=== PATIENT | female | born 1995 | race Caucasian/White ===

== ENCOUNTER → 2019-04-24 | Outpatient (CLI) | payer OTHER ==
--- NOTE | 2019-04-26 22:20 | CT ---
EXAMINATION TYPE: CT abdomen wo/w con DATE OF EXAM: 04/24/2019 COMPARISON: NONE HISTORY: 23-year-old female abdominal pain, Abdominal mass TECHNIQUE: Contiguous axial scanning of the abdomen abdomen before and after administration of 100 ml Isovue 300 IV contrast. Delayed images through the kidneys and coronal/sagittal reconstructions per formed. CT DLP: 2159.7 mGycm Automated exposure control for dose reduction was used. FINDINGS: LUNG BASES: No significant abnormality is appreciated. LIVER/GB: Liver enlarged measuring 20.0 cm with low attenuation. No focal lesions seen. Portal venous system is patent. No biliary ductal dilatation. Gallbladder is collapsed. PANCREAS: There is a relatively large 6.9 x 5.0 cm cystic lesion situated posterior and inferior to t he pancreatic body/tail bowing the splenic vein anteriorly. The delayed images suggest that there may be a couple thin central septation. No abnormal soft tissue nodularity or enhancement. SPLEEN: No significant abnormality is seen. LYMPH NODES: Scattered nonenlarged and borderline enlarged mesenteric lymph nodes are scattered throu ghout measuring up to 9 mm, for example, coronal image 49 and 53. ADRENALS: No significant abnormality is seen. KIDNEYS: No significant abnormality is seen. BOWEL: No dilated small bowel, free fluid, or free air. Normal appendix. Moderate stool within the r ight side of the colon. No pericolonic inflammatory changes. Normal appendix. BONES: No osseous destructive process. The pelvis is not imaged. IMPRESSION: 1. NONSPECIFIC 6.9 X 5.0 CM CYST SITUATED ALONG THE POSTEROINFERIOR ASPECT OF THE PANCREATIC BODY/TERRY L. CORRELATE FOR APPROPRIATE HISTORY OF PRIOR PANCREATITIS FOR POSSIBLE PSEUDOCYST. SPT CONSIDERED LE SS LIKELY GIVEN THE LACK OF ENHANCING SOLID COMPONENT. THE PATIENT IS SOMEWHAT YOUNG FOR A MUCINOUS P ANCREATIC NEOPLASM BUT THIS REMAINS IN THE DIFFERENTIAL IF THERE IS NO HISTORY OF PRIOR PANCREATITIS. 2. HEPATOMEGALY (20.0 CM) WITH HEPATIC STEATOSIS. 3. NUMEROUS SCATTERED NONENLARGED AND BORDERLINE ENLARGED MESENTERIC LYMPH NODES MEASURING UP TO 9 MM . PROBABLY REACTIVE/POST INFLAMMATORY. ENSURE STABILITY/RESOLUTION WITH FOLLOW-UP CT IN 6 MONTHS.
== END | disposition home or self-care (01) ==
LOC: RADCTMAIN 16:42
PROVIDERS: ATTEND Family Medicine
DX: K76.0 Fatty (change of) liver, not elsewhere classified (principal); R16.0 Hepatomegaly, not elsewhere classified; R59.9 Enlarged lymph nodes, unspecified
CPT/HCPCS: 74170; Q9967

== ENCOUNTER 2019-05-24 11:13 | Emergency (ER) | payer OTHER ==
[2019-05-24 11:20] VITALS: RESP 18; TEMP 98
--- NOTE | 2019-05-24 11:31 | ED ---
General Adult HPI - General Chief complaint: Upper Respiratory Infection Stated complaint: chest pain Time Seen by Provider: 05/24/19 11:20 Source: patient Mode of arrival: ambulatory Limitations: no limitations - History of Present Illness Initial comments: Patient is a 23-year-old female with history of asthma presents emergency Department with a chief complaint of cough shortness of breath. States a nonproductive cough for several months. Patient reports gradual increase in severity. States she was prescribed nebulized albuterol but did not have medication for a long time. Does report occasional chest pain especially with full aspiration. States her chest feels tight because she cannot take a full breath. Patient does use a vape daily. Does report a runny nose and occasional sore throat. Denies taking medication to alleviate the symptoms. - Related Data Home Medications Medication Instructions Recorded Confirmed ALPRAZolam [Xanax] 2 mg PO HS 12/04/15 12/04/15 diphenhydrAMINE HCL [Benadryl] 25 - 150 mg PO HS PRN 12/04/15 12/04/15 Previous Rx's Medication Instructions Recorded ALPRAZolam [Xanax] 0.5 mg PO AC-BID #30 tab 12/07/15 Fluticasone Nasal Lena [Flonase 1 spray EA NOSTRIL BID spr 12/07/15 Nasal Lena] Gabapentin [Neurontin] 600 mg PO TID #120 cap 12/07/15 Jcqzxcui-Dujeqlozci-Hyhn Oint 1 applic TOPICAL BID applic 12/07/15 [Triple Antibiotic Ointment] Nicotine 14Mg/24Hr Patch [Habitrol] 1 patch TRANSDERM DAILY #30 patch 12/07/15 Propranolol [Inderal] 30 mg PO Q12H #90 tab 12/07/15 chlorproMAZINE [Thorazine] 300 mg PO HS #120 tab 12/07/15 diphenhydrAMINE [Benadryl] 50 mg PO HS PRN #30 cap 12/07/15 tiZANidine [Zanaflex] 2 mg PO TID PRN #90 tab 12/07/15 Albuterol Inhaler [Ventolin Hfa 1 - 2 puff INHALATION RT-Q6H PRN 05/24/19 Inhaler] #1 inhaler Azithromycin [Zithromax Z-pack] 0 mg PO DIRECTED #1 pack 05/24/19 predniSONE 50 mg PO DAILY #5 tab 05/24/19 Allergies Allergy/AdvReac Type Severity Reaction Status Date / Time No Known Allergies Allergy Verified 12/04/15 16:51 Review of Systems ROS Statement: Those systems with pertinent positive or pertinent negative responses have been documented in the HPI. ROS Other: All systems not noted in ROS Statement are negative. Past Medical History Past Medical History: Seizure Disorder Additional Past Medical History / Comment(s): agoraphobia, borderline, seizure disorder: last seizure was a "1 month ago." Polycystic ovary syndrome, chronic back spasms History of Any Multi-Drug Resistant Organisms: None Reported Past Surgical History: Ear Surgery Additional Past Surgical History / Comment(s): Bilateral ear tube insertion as a young child. Past Anesthesia/Blood Transfusion Reactions: No Reported Reaction Past Psychological History: Depression, PTSD, Schizoaffective Disorder Smoking Status: Current every day smoker Past Alcohol Use History: Occasional Past Drug Use History: Marijuana, Prescription Drug Abuse - Past Family History Father Family Medical History: Hypertension Additional Family Medical History / Comment(s): Father is alive at age 50 with Testosterone deficiency Mother Additional Family Medical History / Comment(s): Mother is alive at age 48 with history of MPD, bipolar, depression. Brother(s) Additional Family Medical History / Comment(s): She has 4 brothers with no major medical problems. She does not have any sisters. She does not have any children. General Exam Limitations: no limitations General appearance: alert, in no apparent distress, obese (morbily obese) Head exam: Present: atraumatic, normocephalic, normal inspection Eye exam: Present: normal appearance Pupils: Present: normal accommodation ENT exam: Present: normal exam, normal oropharynx, mucous membranes moist, TM's normal bilaterally, normal external ear exam Neck exam: Present: normal inspection, full ROM. Absent: lymphadenopathy Respiratory exam: Present: normal lung sounds bilaterally. Absent: respiratory distress, wheezes, decreased breath sounds Cardiovascular Exam: Present: regular rate, normal rhythm, normal heart sounds Extremities exam: Present: normal inspection, full ROM Back exam: Present: normal inspection, full ROM Neurological exam: Present: alert, oriented X3 Psychiatric exam: Present: normal affect, normal mood Skin exam: Present: warm, dry, intact, normal color Course Vital Signs 05/24/19 05/24/19 05/24/19 11:17 12:23 12:32 Temperature 98.0 F Pulse Rate 113 H 100 104 H Respiratory 18 Rate Blood Pressure 138/81 O2 Sat by Pulse 99 Oximetry 05/24/19 12:46 Temperature Pulse Rate 71 Respiratory 18 Rate Blood Pressure 130/74 O2 Sat by Pulse 99 Oximetry Medical Decision Making - Medical Decision Making Patient is 23-year-old female with history of asthma presenting to the emergency department with a chief complaint of cough. Symptoms ongoing for the past 3 or 4 months. Patient is a smoker. Patient given a breathing treatment in the ED. On reevaluation patient reports improvement of symptoms. I counseled the patient for smoking cessation for greater than 3 minutesPatient also started on steroids. Patient will be discharged with an albuterol inhaler, 5 day course of prednisone and azithromycin. X-rays unremarkable. Patient is not febrile. Return parameters thoroughly discussed with patient was understanding and agreeable. Case discussed with physician. Disposition Clinical Impression: Asthma exacerbation, mild Disposition: HOME SELF-CARE Condition: Stable Instructions (If sedation given, give patient instructions): Asthma (DC) Additional Instructions: Take prescribed medication as directed. Follow-up with primary care. Return to emergency department if symptoms worsen. Stop smoking. Prescriptions: predniSONE 50 mg PO DAILY #5 tab Albuterol Inhaler [Ventolin Hfa Inhaler] 1 - 2 puff INHALATION RT-Q6H PRN #1 inhaler PRN Reason: Cough Azithromycin [Zithromax Z-pack] 0 mg PO DIRECTED #1 pack Is patient prescribed a controlled substance at d/c from ED?: No Referrals: Jose Antonio Pinon Jr, DO [Primary Care Provider] - 1-2 days Time of Disposition: 12:37
[2019-05-24] MEDS ORDERED: IPRATROPIUM-ALBUTEROL 3 ML NEB INHALATION STA (11:43)
[2019-05-24] MEDS ORDERED: predniSONE 20 MG TAB PO STA (11:44)
[2019-05-24] MEDS ORDERED: FAMOTIDINE 20 MG TAB PO STA (11:44)
--- NOTE | 2019-05-24 12:34 | XR ---
EXAMINATION TYPE: XR chest 2V DATE OF EXAM ORDERED: 05/24/2019 HISTORY: cough. REFERENCE: None. FINDINGS: The lungs are clear. Pleural spaces are clear. Heart size is normal. IMPRESSION: NORMAL CHEST.
[2019-05-24 12:48] VITALS: BP 130/74; PULSE 71
== END 2019-05-24 12:46 | disposition home or self-care (01) ==
LOC: EC 11:13
DX: J45.901 Unspecified asthma with (acute) exacerbation (principal); Z71.6 Tobacco abuse counseling; F40.00 Agoraphobia, unspecified; F17.290 Nicotine dependence, other tobacco product, uncomplicated; Z79.899 Other long term (current) drug therapy
CPT/HCPCS: 94640; 71046; 99285; 99406; J7512

== ENCOUNTER 2019-06-21 19:52 | Emergency (ER) | payer OTHER ==
[2019-06-21 19:59] VITALS: RESP 18; TEMP 97.4
--- NOTE | 2019-06-21 20:54 | CT ---
EXAMINATION TYPE: CT brain wo con DATE OF EXAM: 06/21/2019 COMPARISON: None HISTORY: Right side facial pain and MANUEL CT DLP: 1052.4 mGycm Automated exposure control for dose reduction was used. Ventricles and sulci appear normal. There is no mass effect nor midline shift. There is no sign of in tracranial hemorrhage. The calvarium is intact. IMPRESSION: Normal unenhanced head CT scan.
[2019-06-21 21:10] VITALS: BP 130/98; PULSE 125
--- NOTE | 2019-06-21 21:13 | ED ---
General Adult HPI - General Source: patient Mode of arrival: ambulatory Limitations: no limitations <Shweta Jin - Last Filed: 06/22/19 02:05> <Steph Aviles - Last Filed: 06/22/19 23:24> - General Chief complaint: ENT Stated complaint: Facial pain Time Seen by Provider: 06/21/19 20:09 - History of Present Illness Initial comments: 23-year-old female patient presents to the emergency department today for evaluation of right sided facial pain. Patient states she's been getting these pains intermittently over the last couple of weeks. Patient states the pain is in her right faith behind her right thigh, across her maxillary sinus and into her jaw. Patient states that the pain comes at different times to different locations. States that it can last anywhere from a few seconds up to a couple of hours. States that the intensity and duration is getting worse. Patient states she does have very poor dentition. Denies any facial swelling. Denies fever or chills. Denies any dizziness, weakness, blurred vision, double vision. Patient denies history of similar symptoms. She does take several psychiatric medications as well as oxcarbazepine for seizures. Patient denies any recent rash, cough, shortness of breath, chest pain, abdominal pain, nausea, vomiting, diarrhea, constipation, back pain, numbness, tingling, dizziness, weakness, hematuria, dysuria, urinary urgency, urinary frequency, or any other complaints. (Shweta Jin) - Related Data Home Medications Medication Instructions Recorded Confirmed Albuterol Inhaler [Ventolin Hfa 2 puff INHALATION RT-QID PRN 06/21/19 06/21/19 Inhaler] Benztropine Mesylate [Cogentin] 1 mg PO HS 06/21/19 06/21/19 Metoprolol Succinate (ER) [Toprol 100 mg PO DAILY 06/21/19 06/21/19 Xl] Mirtazapine 30 mg PO HS 06/21/19 06/21/19 OLANZapine 15 mg PO HS 06/21/19 06/21/19 OXcarbazepine [Trileptal] 300 mg PO BID 06/21/19 06/21/19 Pregabalin 200 mg PO TID 06/21/19 06/21/19 clonazePAM [KlonoPIN] 1 mg PO BID PRN 06/21/19 06/21/19 hydrOXYzine PAMOATE [Vistaril] 50 mg PO Q8H PRN 06/21/19 06/21/19 Previous Rx's Medication Instructions Recorded OXcarbazepine 600 mg PO BID #28 tablet 06/21/19 Penicillin V Potassium [Pen Vee K] 500 mg PO Q6H #40 tablet 06/21/19 Allergies Allergy/AdvReac Type Severity Reaction Status Date / Time No Known Allergies Allergy Verified 06/21/19 21:03 Review of Systems ROS Other: All systems not noted in ROS Statement are negative. <Shweta Jin - Last Filed: 06/22/19 02:05> ROS Other: All systems not noted in ROS Statement are negative. <Steph Aviles - Last Filed: 06/22/19 23:24> ROS Statement: Those systems with pertinent positive or pertinent negative responses have been documented in the HPI. Past Medical History Past Medical History: Seizure Disorder Additional Past Medical History / Comment(s): agoraphobia, borderline, seizure disorder: last seizure was a "1 month ago." Polycystic ovary syndrome, chronic back spasms , autism does not use link. History of Any Multi-Drug Resistant Organisms: None Reported Past Surgical History: Ear Surgery Additional Past Surgical History / Comment(s): Bilateral ear tube insertion as a young child. Past Anesthesia/Blood Transfusion Reactions: No Reported Reaction Past Psychological History: Depression, PTSD, Schizoaffective Disorder Smoking Status: Current every day smoker Past Alcohol Use History: Occasional Past Drug Use History: Marijuana, Prescription Drug Abuse - Past Family History Father Family Medical History: Hypertension Additional Family Medical History / Comment(s): Father is alive at age 50 with Testosterone deficiency Mother Additional Family Medical History / Comment(s): Mother is alive at age 48 with history of MPD, bipolar, depression. Brother(s) Additional Family Medical History / Comment(s): She has 4 brothers with no major medical problems. She does not have any sisters. She does not have any children. <Shweta Jin - Last Filed: 06/22/19 02:05> General Exam Limitations: no limitations General appearance: alert, in no apparent distress, other (This is a well- developed, well-nourished adult female patient in no acute distress. Vital signs upon presentation are temperature 97.4F, pulse 138, respirations 18, blood pressure 141/94, pulse ox 97% on room air.) Eye exam: Present: normal appearance, PERRL, EOMI. Absent: scleral icterus, conjunctival injection, periorbital swelling ENT exam: Present: normal oropharynx, mucous membranes moist, TM's normal bilaterally, other (Poor dentition, multiple dental caries noted. No gingival erythema or hyperplasia. No facial swelling.) Neck exam: Present: normal inspection, full ROM. Absent: tenderness, men ingismus, lymphadenopathy Respiratory exam: Present: normal lung sounds bilaterally Cardiovascular Exam: Present: normal rhythm, tachycardia, normal heart sounds. Absent: systolic murmur, diastolic murmur, rubs, gallop, clicks Neurological exam: Present: alert, oriented X3, CN II-XII intact Psychiatric exam: Present: normal affect, normal mood Skin exam: Present: warm, dry, intact, normal color. Absent: rash <Shweta Jin - Last Filed: 06/22/19 02:05> Course Vital Signs 06/21/19 06/21/19 06/21/19 19:56 21:00 21:18 Temperature 97.4 F L 97.4 F L Pulse Rate 138 H 125 H 125 H Respiratory 18 18 18 Rate Blood Pressure 141/94 130/98 130/98 O2 Sat by Pulse 97 97 97 Oximetry Medical Decision Making - Radiology Data Radiology results: report reviewed, image reviewed <Shweta Jin - Last Filed: 06/22/19 02:05> <Steph Aviles - Last Filed: 06/22/19 23:24> - Medical Decision Making 23-year-old female patient presents to the emergency department today for evaluation of intermittent right facial pain the last couple of weeks. Physical examination does reveal poor dentition with multiple dental caries but is otherwise unremarkable. She is neurologically intact with no focal deficits. There is no temporal artery induration. CT of the brain was negative. Symptoms are consistent with trigeminal neuralgia or possibly a dental infection. We will increase her oxcarbazepine 600 mg twice daily and started on pen VK. She is instructed to follow-up with her primary care physician as well as her neurologist for further evaluation as soon as possible. She is instructed to inform them immediately of her oxcarbazepine dosage change. Return parameters are discussed in detail. She verbalizes understanding and agrees with this plan. (Shweta Jin) I was available for consultation in the emergency department. The history and physical exam were done by the midlevel provider. I was consulted for this patients care. I reviewed the case with the midlevel provider and based on their presentation of the patient, I agree with the assessment, medical decision making and plan of care as documented. Chart was dictated using [employer] dictation software. Attempts were made to correct any dictation errors however some typographical errors may persist. Patient was seen during a national state of emergency due to the Covid-19 pandemic. (Steph Aviles) - Radiology Data CT of the brain without contrast was obtained. Report was reviewed in its entirety. Impression by Dr. Payne shows normal unenhanced head CT scan. (Shweta Jin) Disposition Is patient prescribed a controlled substance at d/c from ED?: No Time of Disposition: 21:13 <Shweta Jin - Last Filed: 06/22/19 02:05> <Steph Aviles - Last Filed: 06/22/19 23:24> Clinical Impression: Facial pain, Trigeminal neuralgia Disposition: HOME SELF-CARE Condition: Good Instructions (If sedation given, give patient instructions): Trigeminal Neuralgia (ED) Additional Instructions: Increase dosage of your oxcarbamazepine to 600mg twice daily. Complete antibiotic prescription in full. Follow up with dentistry and your neurologist. Follow-up with your primary care physician for recheck in 1-2 days. Inform your neurologist that we increased the dosage of your medication due to suspected trigeminal neuralgia. Return to the emergency department for any new, worsening, or concerning symptoms. Prescriptions: OXcarbazepine 600 mg PO BID #28 tablet Penicillin V Potassium [Pen Vee K] 500 mg PO Q6H #40 tablet Referrals: Jose Antonio Pinon Jr, [Primary Care Provider] - 1-2 days
== END 2019-06-21 21:19 | disposition home or self-care (01) ==
LOC: EC 19:52
DX: G50.0 Trigeminal neuralgia (principal); G40.909 Epilepsy, unspecified, not intractable, without status epilepticus; F32.9 Major depressive disorder, single episode, unspecified; F25.9 Schizoaffective disorder, unspecified; F17.200 Nicotine dependence, unspecified, uncomplicated; Z79.899 Other long term (current) drug therapy
CPT/HCPCS: 70450; 99284

== ENCOUNTER 2019-06-25 17:38 | Emergency (ER) | payer OTHER ==
[2019-06-25] MEDS ORDERED: ONDANSETRON 4 MG/2 ML VIAL IVP STA (18:37)
[2019-06-25] MEDS ORDERED: SODIUM CHLORIDE 0.9% 1,000 ML IV STA (18:37)
[2019-06-25] MEDS ORDERED: HYDROmorphone 0.5 MG/0.5 ML SYRINGE IVP STA (18:37)
[2019-06-25 19:11] LABS: Basophils % (A) 0 %; Eosinophils # (A) 0.2 k/uL (0-0.7); Eosinophils % (A) 2 %; HGB 13.1 gm/dL (11.4-16.0); Lymphocytes # (A) 3.2 k/uL (1.0-4.8); Lymphocytes % (A) 23 %; MCH 28.9 pg (25.0-35.0); MCHC 33.7 g/dL (31.0-37.0); MCV 85.7 fL (80.0-100.0); Mean Platelet Volume 9.6; Monocytes # (A) 0.4 k/uL (0-1.0); Monocytes % (A) 3 %; Neutrophils # (A) 10.1 k/uL (1.3-7.7); Neutrophils % (A) 72 %; Platelet Count 257 k/uL (150-450); RBC 4.55 m/uL (3.80-5.40); RDW 13.9 % (11.5-15.5); WBC 14.1 k/uL (3.8-10.6)
[2019-06-25 19:17] LABS: Appearance,Urine Clear (Clear); Bilirubin,Urine Negative (Negative); Blood,Urine Negative (Negative); Color,Urine Light Yellow; Glucose,Urine (UA) Negative (Negative); Ketones,Urine Negative (Negative); Leukocyte Esterase,Urine Negative (Negative); Nitrite,Urine Negative (Negative); Protein,Urine Negative (Negative); Urobilinogen,Urine <2.0 mg/dL (<2.0)
[2019-06-25 19:24] LABS: ALT 21 U/L (4-34); AST 26 U/L (14-36); African American GFR (CKD) >90 (>60 ml/min/1.73 sqM); Albumin 3.7 g/dL (3.5-5.0); Alkaline Phosphatase 107 U/L (38-126); Amylase 60 U/L (30-110); Anion Gap 7 mmol/L; Blood Urea Nitrogen 10 mg/dL (7-17); Calcium 9.2 mg/dL (8.4-10.2); Carbon Dioxide 25 mmol/L (22-30); Chloride 104 mmol/L (98-107); Glucose 90 mg/dL (74-99); Non-African American GFR(CKD) >90 (>60 ml/min/1.73 sqM); Potassium 4.2 mmol/L (3.5-5.1); Sodium 136 mmol/L (137-145); Total Bilirubin 0.2 mg/dL (0.2-1.3); Total Protein 6.5 g/dL (6.3-8.2)
[2019-06-25] MEDS ORDERED: HYDROmorphone 1 MG/ML 1 ML SYRINGE IVP STA (19:45)
--- NOTE | 2019-06-25 19:45 | ED ---
General Adult HPI - General Chief complaint: Recheck/Abnormal Lab/Rx Stated complaint: Internal cyst Time Seen by Provider: 06/25/19 17:52 Source: patient Mode of arrival: ambulatory Limitations: no limitations - History of Present Illness Initial comments: 23-year-old female patient presents to the emergency department today for evaluation of left upper quadrant abdominal pain. 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 States that she is taking [place] 10/325 and doesn't seem to be helping her pain today. She states that she is having some nausea but denies any vomiting. States she is eating and drinking without difficulty. Denies any constipation or diarrhea. She denies any hematuria, dysuria, urinary frequency, urinary urgency. Patient states that she will be having a biopsy on this cyst, the surgical oncologist is suspicious for pancreatic cancer. Patient is currently receiving antibiotics for dental infection. Patient denies any recent rash, cough, shortness of breath, chest pain, back pain, numbness, tingling, dizziness, weakness, hematuria, dysuria, urinary urgency, urinary frequency, headache, visual changes, or any other complaints. - Related Data Home Medications Medication Instructions Recorded Confirmed Albuterol Inhaler [Ventolin Hfa 2 puff INHALATION RT-QID PRN 06/21/19 06/21/19 Inhaler] Benztropine Mesylate [Cogentin] 1 mg PO HS 06/21/19 06/21/19 Metoprolol Succinate (ER) [Toprol 100 mg PO DAILY 06/21/19 06/21/19 Xl] Mirtazapine 30 mg PO HS 06/21/19 06/21/19 OLANZapine 15 mg PO HS 06/21/19 06/21/19 OXcarbazepine [Trileptal] 300 mg PO BID 06/21/19 06/21/19 Pregabalin 200 mg PO TID 06/21/19 06/21/19 clonazePAM [KlonoPIN] 1 mg PO BID PRN 06/21/19 06/21/19 hydrOXYzine PAMOATE [Vistaril] 50 mg PO Q8H PRN 06/21/19 06/21/19 Previous Rx's Medication Instructions Recorded OXcarbazepine 600 mg PO BID #28 tablet 06/21/19 Penicillin V Potassium [Pen Vee K] 500 mg PO Q6H #40 tablet 06/21/19 Allergies Allergy/AdvReac Type Severity Reaction Status Date / Time No Known Allergies Allergy Verified 06/25/19 17:45 Review of Systems ROS Statement: Those systems with pertinent positive or pertinent negative responses have been documented in the HPI. ROS Other: All systems not noted in ROS Statement are negative. Past Medical History Past Medical History: Seizure Disorder Additional Past Medical History / Comment(s): agoraphobia, borderline, seizure disorder: last seizure was a "1 month ago." Polycystic ovary syndrome, chronic back spasms , autism does not use link. Sinus tachycardia History of Any Multi-Drug Resistant Organisms: None Reported Past Surgical History: Ear Surgery Additional Past Surgical History / Comment(s): Bilateral ear tube insertion as a young child. Past Anesthesia/Blood Transfusion Reactions: No Reported Reaction Past Psychological History: Depression, PTSD, Schizoaffective Disorder Smoking Status: Current every day smoker Past Alcohol Use History: Occasional Past Drug Use History: Marijuana, Prescription Drug Abuse - Past Family History Father Family Medical History: Hypertension Additional Family Medical History / Comment(s): Father is alive at age 50 with Testosterone deficiency Mother Additional Family Medical History / Comment(s): Mother is alive at age 48 with history of MPD, bipolar, depression. Brother(s) Additional Family Medical History / Comment(s): She has 4 brothers with no major medical problems. She does not have any sisters. She does not have any children. General Exam Limitations: no limitations General appearance: alert, in no apparent distress, other (This is a well- developed, well-nourished adult female patient in no acute distress. Vital signs upon presentation are temperature 99.0F, pulse 136, respirations 18, blood pressure 135/86, pulse ox 98% on room air) Eye exam: Present: normal appearance, PERRL, EOMI. Absent: scleral icterus, conjunctival injection, periorbital swelling Respiratory exam: Present: normal lung sounds bilaterally. Absent: respiratory distress, wheezes, rales, rhonchi, stridor Cardiovascular Exam: Present: regular rate, normal rhythm, normal heart sounds. Absent: systolic murmur, diastolic murmur, rubs, gallop, clicks GI/Abdominal exam: Present: soft, normal bowel sounds. Absent: distended, tenderness, guarding, rebound, rigid Neurological exam: Present: alert, oriented X3, CN II-XII intact Psychiatric exam: Present: normal affect, normal mood Skin exam: Present: warm, dry, intact, normal color. Absent: rash Course Vital Signs 06/25/19 06/25/19 17:41 20:10 Temperature 99.0 F 97.9 F Pulse Rate 136 H 79 Respiratory 18 16 Rate Blood Pressure 135/86 126/78 O2 Sat by Pulse 98 98 Oximetry EKG Findings - EKG Comments: EKG Findings:: EKG obtained at 1923 shows ventricular rate of 113, CO interval 162, QRS duration 82, QT 332, QTc 455. This is consistent with sinus tac hycardia. No ST elevation or depression. Medical Decision Making - Medical Decision Making 23-year-old female patient presents to the emergency department today for evaluation of left upper quadrant abdominal pain. Physical examination did reveal some tenderness over the left upper quadrant. She is currently taking penicillin for dental infection. Labs reviewed and did reveal elevated white blood cell count. She is afebrile. She does have tachycardia but this is common for her, EKG showed sinus tach. Urinalysis is negative. Upon reev aluation shows report mild improvement of symptoms but is still having pain. We will give a dose of pain medication and she'll be discharged to follow-up with her doctor and surgeon. Return parameters were discussed in detail. She verbalizes understanding and agrees with this plan. - Lab Data Result diagrams: 06/25/19 18:36 06/25/19 18:36 Lab Results 06/25/19 06/25/19 06/25/19 Range/Units 18:36 18:36 18:36 WBC 14.1 H (3.8-10.6) k/uL RBC 4.55 (3.80-5.40) m/uL Hgb 13.1 (11.4-16.0) gm/dL Hct 39.0 (34.0-46.0) % MCV 85.7 (80.0-100.0) fL MCH 28.9 (25.0-35.0) pg MCHC 33.7 (31.0-37.0) g/dL RDW 13.9 (11.5-15.5) % Plt Count 257 (150-450) k/uL Neutrophils % 72 % Lymphocytes % 23 % Monocytes % 3 % Eosinophils % 2 % Basophils % 0 % Neutrophils # 10.1 H (1.3-7.7) k/uL Lymphocytes # 3.2 (1.0-4.8) k/uL Monocytes # 0.4 (0-1.0) k/uL Eosinophils # 0.2 (0-0.7) k/uL Basophils # 0.0 (0-0.2) k/uL Sodium 136 L (137-145) mmol/L Potassium 4.2 (3.5-5.1) mmol/L Chloride 104 (98-107) mmol/L Carbon Dioxide 25 (22-30) mmol/L Anion Gap 7 mmol/L BUN 10 (7-17) mg/dL Creatinine 0.75 (0.52-1.04) mg/dL Est GFR (CKD-EPI)AfAm >90 (>60 ml/min/1.73 sqM) Est GFR (CKD-EPI)NonAf >90 (>60 ml/min/1.73 sqM) Glucose 90 (74-99) mg/dL Calcium 9.2 (8.4-10.2) mg/dL Total Bilirubin 0.2 (0.2-1.3) mg/dL AST 26 (14-36) U/L ALT 21 (4-34) U/L Alkaline Phosphatase 107 (38-126) U/L Total Protein 6.5 (6.3-8.2) g/dL Albumin 3.7 (3.5-5.0) g/dL Amylase 60 (30-110) U/L Lipase 36 (23-300) U/L Urine Color Light Yellow Urine Appearance Clear (Clear) Urine pH 7.0 (5.0-8.0) Ur Specific [place] 1.010 (1.001-1.035) Urine Protein Negative (Negative) Urine Glucose (UA) Negative (Negative) Urine Ketones Negative (Negative) Urine Blood Negative (Negative) Urine Nitrite Negative (Negative) Urine Bilirubin Negative (Negative) Urine Urobilinogen <2.0 (<2.0) mg/dL Ur Leukocyte Esterase Negative (Negative) Disposition Clinical Impression: Abdominal pain Disposition: HOME SELF-CARE Condition: Good Instructions (If sedation given, give patient instructions): Abdominal Pain (ED) Additional Instructions: Continue home medications. Follow-up with your primary care physician for further evaluation and to request stronger pain medication. Follow-up with your surgeon for further evaluation as soon as possible. Return to the emergency department for any new, worsening, or concerning symptoms. Is patient prescribed a controlled substance at d/c from ED?: No Referrals: Jose Antonio Pinon Jr, DO [Primary Care Provider] - 1-2 days Time of Disposition: 19:45
[2019-06-25 20:11] VITALS: BP 126/78; PULSE 79; RESP 16; TEMP 97.9
== END 2019-06-25 20:12 | disposition home or self-care (01) ==
LOC: EC 17:38
DX: R10.12 Left upper quadrant pain (principal); R10.812 Left upper quadrant abdominal tenderness; F32.9 Major depressive disorder, single episode, unspecified; D72.829 Elevated white blood cell count, unspecified; R00.0 Tachycardia, unspecified; G40.909 Epilepsy, unspecified, not intractable, without status epilepticus; K04.7 Periapical abscess without sinus; F17.200 Nicotine dependence, unspecified, uncomplicated; Z79.2 Long term (current) use of antibiotics; Z79.899 Other long term (current) drug therapy
CPT/HCPCS: 96376; 96361; 96374; 96375; 99284; 36415; 93005; 80053; 82150; 83690; 85025; 81003; J2405; J1170 ×2

== ENCOUNTER 2019-07-11 13:37 | Emergency (ER) | payer OTHER ==
[2019-07-11 13:46] VITALS: TEMP 98.2
[2019-07-11 15:11] VITALS: RESP 20
--- NOTE | 2019-07-11 15:40 | ED ---
General Adult HPI - General Chief complaint: Neuro Symptoms/Deficit Stated complaint: Fall Time Seen by Provider: 07/11/19 13:52 Source: patient Mode of arrival: ambulatory Limitations: no limitations - History of Present Illness Initial comments: 23-year-old female patient presents to the emergency department today for evaluation of difficulty ambulating. Patient states whenever she stands up and walks for a couple of minutes she will develop body shaking and she will fall. Patient states this is happened to her 3-4 times over the last 2 days. She denies any dizziness with this. States that she does have some blurred vision when this occurs. States that her legs will wobble causing the fall. Patient denies history of similar symptoms. States that she recently moved from [place] and has not yet been able to follow-up with the neurologist. States she has had MRI within the last 6 months. She did have a recent computed tomography scan in this department which was unremarkable. Patient has a known pancreatic cyst for which she is having a biopsy on the of this month. She takes oxcarbazepine for nonepileptic seizures, dose was recently increased for concern for trigeminal neuralgia. Denies any fever or chills. States she does have history of migraines and has had no changes to her headaches. Patient denies any recent rash, fever, chills, cough, shortness of breath, chest pain, abdominal pain, nausea, vomiting, diarrhea, constipation, back pain, hematuria, dysuria, urinary urgency, urinary frequency, or any other complaints. Severity scale (1-10): 0 - Related Data Home Medications Medication Instructions Recorded Confirmed Albuterol Inhaler [Ventolin Hfa 2 puff INHALATION RT-QID PRN 06/21/19 06/21/19 Inhaler] Benztropine Mesylate [Cogentin] 1 mg PO HS 06/21/19 06/21/19 Metoprolol Succinate (ER) [Toprol 100 mg PO DAILY 06/21/19 06/21/19 Xl] Mirtazapine 30 mg PO HS 06/21/19 06/21/19 OLANZapine 15 mg PO HS 06/21/19 06/21/19 OXcarbazepine [Trileptal] 300 mg PO BID 06/21/19 06/21/19 Pregabalin 200 mg PO TID 04/19/20 04/19/20 clonazePAM [KlonoPIN] 1 mg PO BID PRN 06/21/19 06/21/19 hydrOXYzine PAMOATE [Vistaril] 50 mg PO Q8H PRN 06/21/19 06/21/19 Previous Rx's Medication Instructions Recorded OXcarbazepine 600 mg PO BID #28 tablet 06/21/19 Penicillin V Potassium [Pen Vee K] 500 mg PO Q6H #40 tablet 06/21/19 Allergies Allergy/AdvReac Type Severity Reaction Status Date / Time No Known Allergies Allergy Verified 07/11/19 13:42 Review of Systems ROS Statement: Those systems with pertinent positive or pertinent negative responses have been documented in the HPI. ROS Other: All systems not noted in ROS Statement are negative. Past Medical History Past Medical History: Seizure Disorder Additional Past Medical History / Comment(s): agoraphobia, borderline, seizure disorder: last seizure was a "1 month ago." Polycystic ovary syndrome, chronic back spasms , autism does not use link. Sinus tachycardia History of Any Multi-Drug Resistant Organisms: None Reported Past Surgical History: Ear Surgery Additional Past Surgical History / Comment(s): Bilateral ear tube insertion as a young child. Past Anesthesia/Blood Transfusion Reactions: No Reported Reaction Past Psychological History: Depression, PTSD, Schizoaffective Disorder Smoking Status: Current every day smoker Past Alcohol Use History: Occasional Past Drug Use History: Marijuana, Prescription Drug Abuse - Past Family History Father Family Medical History: Hypertension Additional Family Medical History / Comment(s): Father is alive at age 50 with Testosterone deficiency Mother Additional Family Medical History / Comment(s): Mother is alive at age 48 with history of MPD, bipolar, depression. Brother(s) Additional Family Medical History / Comment(s): She has 4 brothers with no major medical problems. She does not have any sisters. She does not have any children. General Exam Limitations: no limitations General appearance: alert, in no apparent distress, other (This is a well- developed, well-nourished adult female patient in no acute distress. Vital signs upon presentation are temperature 98.2F, pulse 78, respirations 18, blood pressure 100/71, pulse ox 99% on room air.) Eye exam: Present: normal appearance, PERRL, EOMI. Absent: scleral icterus, conjunctival injection, periorbital swelling ENT exam: Present: normal exam, normal oropharynx, mucous membranes moist Respiratory exam: Present: normal lung sounds bilaterally. Absent: respiratory distress, wheezes, rales, rhonchi, stridor Cardiovascular Exam: Present: regular rate, normal rhythm, normal heart sounds. Absent: systolic murmur, diastolic murmur, rubs, gallop, clicks GI/Abdominal exam: Present: soft, normal bowel sounds. Absent: distended, tenderness, guarding, rebound, rigid Neurological exam: Present: alert, oriented X3, CN II-XII intact Expanded Speech: Present: fluid speech Cranial nerves: EOM's Intact: Normal, Tongue Deviation: Normal, Nystagmus: Normal Motor strength exam: RUE: 5, LUE: 5, RLE: 5, LLE: 5 Eye Response: (4) open spontaneously Motor Response: (6) obeys commands Verbal Response: (5) oriented Breanna Total: 15 Psychiatric exam: Present: normal affect, normal mood Skin exam: Present: warm, dry, intact, normal color. Absent: rash Course Vital Signs 07/11/19 07/11/19 07/11/19 13:42 13:46 15:10 Temperature 98.2 F Pulse Rate 78 Pulse Rate [ Pulse Oximetery ] Pulse Rate [ Right Sitting Pulse Oximetery ] Pulse Rate [ Right Standing Pulse Oximetery ] Pulse Rate [ Right Supine Pulse Oximetery ] Respiratory 18 20 20 Rate Blood Pressure 100/71 Blood Pressure [Right Arm Sitting] Blood Pressure [Right Arm Standing] Blood Pressure [Right Arm Supine] O2 Sat by Pulse 99 Oximetry 07/11/19 07/11/19 07/11/19 15:11 15:45 16:10 Temperature Pulse Rate Pulse Rate [ 98 Pulse Oximetery ] Pulse Rate [ 74 Right Sitting Pulse Oximetery ] Pulse Rate [ 75 Right Standing Pulse Oximetery ] Pulse Rate [ 72 Right Supine Pulse Oximetery ] Respiratory 20 20 20 Rate Blood Pressure Blood Pressure 128/86 [Right Arm Sitting] Blood Pressure 114/86 [Right Arm Standing] Blood Pressure 121/71 [Right Arm Supine] O2 Sat by Pulse Oximetry 07/11/19 16:51 Temperature Pulse Rate 78 Pulse Rate [ Pulse Oximetery ] Pulse Rate [ Right Sitting Pulse Oximetery ] Pulse Rate [ Right Standing Pulse Oximetery ] Pulse Rate [ Right Supine Pulse Oximetery ] Respiratory 20 Rate Blood Pressure 128/68 Blood Pressure [Right Arm Sitting] Blood Pressure [Right Arm Standing] Blood Pressure [Right Arm Supine] O2 Sat by Pulse 99 Oximetry EKG Findings - EKG Comments: EKG Findings:: EKG obtained at 1500 shows normal sinus rhythm with a ventricular rate of 71, [place] interval 166, QRS duration 94, QTc 412, QTC 447. No evidence of ST elevation or depression. Medical Decision Making - Medical Decision Making 23-year-old female patient presents to the emergency department today for evaluation of falls related to leg "wobbling and body shaking". Symptoms start after patient has been walking around for a few minutes, but resolve as soon as she sits. She is not having chest pain, dizziness, nausea, or vomiting. EKG was unremarkable, normal sinus rhythm. We did perform orthostatic vital signs which showed no changes concerning findings. She was neurologically intact without focal deficits. Strength was 5/5 in all extremities. Did have patient ambulate around the tubbs and she did become weak and nearly fell. Patient has had CT of the brain in the last few weeks which was unremarkable. She reports having a normal brain MRI in the last six months. Patient did recently have an increase in her oxcarbamazepine for possible trigeminal neuralgia. She is instructed to decrease this medication back to her normal dose. She does take numerous other medications that could be causing these symptoms. She is instructed to follow-up with neurology for further evaluation and medication review. She is instructed to follow-up with her primary care physician for recheck in 1-2 days. Return parameters discussed in detail. She verbalizes understanding and agrees with this plan. - Lab Data Lab Results 07/11/19 07/11/19 Range/Units 16:10 16:10 Urine Color Yellow Urine Appearance Clear (Clear) Urine pH 6.5 (5.0-8.0) Ur Specific [place] 1.012 (1.001-1.035) Urine Protein Negative (Negative) Urine Glucose (UA) Negative (Negative) Urine Ketones Negative (Negative) Urine Blood Negative (Negative) Urine Nitrite Negative (Negative) Urine Bilirubin Negative (Negative) Urine Urobilinogen <2.0 (<2.0) mg/dL Ur Leukocyte Esterase Negative (Negative) Urine HCG, Qual Not Detected (Not Detectd) Disposition Clinical Impression: Falls, Leg weakness Disposition: HOME SELF-CARE Condition: Good Instructions (If sedation given, give patient instructions): Weakness (ED), Fall Prevention (ED) Additional Instructions: Follow-up with the neurologist for further evaluation as soon as possible. Decrease your oxcarbamazepine to your normal dosage. Return to the emergency department for any new, worsening, or concerning symptoms. Is patient prescribed a controlled substance at d/c from ED?: No Referrals: Jose Antonio Pinon Jr, DO [Primary Care Provider] - 1-2 days Stacy Ramsey MD [Medical Doctor] - 1-2 days Time of Disposition: 16:40
[2019-07-11 16:18] LABS: Appearance,Urine Clear (Clear); Bilirubin,Urine Negative (Negative); Blood,Urine Negative (Negative); Color,Urine Yellow; Glucose,Urine (UA) Negative (Negative); Ketones,Urine Negative (Negative); Leukocyte Esterase,Urine Negative (Negative); Nitrite,Urine Negative (Negative); PH, Urine 6.5 (5.0-8.0); Protein,Urine Negative (Negative); Specific Gravity,Urine 1.012 (1.001-1.035); Urobilinogen,Urine <2.0 mg/dL (<2.0)
[2019-07-11 16:53] VITALS: BP 128/68; PULSE 78
== END 2019-07-11 17:00 | disposition home or self-care (01) ==
LOC: EC 13:37
DX: R53.1 Weakness (principal); R26.2 Difficulty in walking, not elsewhere classified; G40.909 Epilepsy, unspecified, not intractable, without status epilepticus; F32.9 Major depressive disorder, single episode, unspecified; F25.9 Schizoaffective disorder, unspecified; F17.200 Nicotine dependence, unspecified, uncomplicated; Z79.899 Other long term (current) drug therapy
CPT/HCPCS: 81003; 81025; 93005; 99284

== ENCOUNTER 2019-08-01 08:50 | Emergency (ER) | payer OTHER ==
[2019-08-01 09:40] LABS: Amphetamine Screen,Urine Not Detected (NotDetected); Barbiturate Screen,Urine Not Detected (NotDetected); Benzodiazepines Screen,Urine Not Detected (NotDetected); Cocaine Screen,Urine Not Detected (NotDetected); Methadone Screen, Urine Not Detected (NotDetected); Opiate Screen,Urine Not Detected (NotDetected); Oxycodone Screen, Urine Not Detected (NotDetected); Phencyclidine Screen,Urine Not Detected (NotDetected); Tricyclic Antidepressant,Urine Not Detected (NotDetected); Urn Cannabinoid Scrn Not Detected (NotDetected)
--- NOTE | 2019-08-01 10:31 | ED ---
General Adult HPI - General Chief complaint: Psychiatric Symptoms Stated complaint: Suicidal Time Seen by Provider: 08/01/19 09:05 Source: patient, RN notes reviewed, old records reviewed Mode of arrival: ambulatory Limitations: no limitations - History of Present Illness Initial comments: 23-year-old female patient past history of psychiatric disorder presents to ED with chief complaint of suicidal ideations. Patient reports of the last 3 weeks she has been feeling down and somewhat suicidal in nature. Patient denies any action to herself or hurt others but states that she has a fleeting thoughts of potentially cutting herself with a knife or running out in front of traffic. Denies any chance of being . Denies any other complaints at this time. Systemic: Pt denies fatigue, fever/chills, rash. Pt denies weakness, night sweats, weight loss. Neuro: Pt denies headache, visual disturbances, syncope or pre-syncope. HEENT: Pt denies ocular discharge or irritation, otalgia, rhinorrhea, pharyngitis or notable lymphadenopathy. Cardiopulmonary: Pt denies chest pain, SOB, heart palpitations, dyspnea on exertion. Abdominal/GI: Pt denies abdominal pain, n/v/d. : Pt denies dysuria, burning w/ urination, frequency/urgency. Denies new onset urinary or bowel incontinence. MSK: Pt denies myalgia, loss of strength or function in extremities. Neuro: Pt denies new onset weakness, paresthesias. - Related Data Home Medications Medication Instructions Recorded Confirmed Albuterol Inhaler [Ventolin Hfa 2 puff INHALATION RT-Q6H PRN 06/21/19 08/01/19 Inhaler] Benztropine Mesylate [Cogentin] 1 mg PO HS 06/21/19 08/01/19 Metoprolol Succinate (ER) [Toprol 100 mg PO DAILY 06/21/19 08/01/19 Xl] Mirtazapine 30 mg PO HS 06/21/19 08/01/19 OLANZapine 15 mg PO HS 06/21/19 08/01/19 Pregabalin 200 mg PO TID 06/21/19 08/01/19 clonazePAM [KlonoPIN] 1 mg PO BID PRN 06/21/19 08/01/19 HYDROcodone/APAP 7.5-325MG [[place] 1 tab PO QID PRN 08/01/19 08/01/19 7.5-325] Nicotine Polacrilex [Nicotine 4 mg BUCCAL Q4-6H PRN 08/01/19 08/01/19 Lozenge] Omeprazole [PriLOSEC] 20 mg PO AC-BID 08/01/19 08/01/19 Previous Rx's Medication Instructions Recorded OXcarbazepine 600 mg PO BID #28 tablet 06/21/19 Allergies Allergy/AdvReac Type Severity Reaction Status Date / Time No Known Allergies Allergy Verified 08/01/19 17:43 Review of Systems ROS Statement: Those systems with pertinent positive or pertinent negative responses have been documented in the HPI. ROS Other: All systems not noted in ROS Statement are negative. Past Medical History Past Medical History: Seizure Disorder Additional Past Medical History / Comment(s): agoraphobia, borderline, seizure disorder: last seizure was a "1 month ago." Polycystic ovary syndrome, chronic back spasms , autism does not use link. Sinus tachycardia, mass possible cancer patient unsure History of Any Multi-Drug Resistant Organisms: None Reported Past Surgical History: Ear Surgery Additional Past Surgical History / Comment(s): Bilateral ear tube insertion as a young child. Past Anesthesia/Blood Transfusion Reactions: No Reported Reaction Past Psychological History: Depression, PTSD, Schizoaffective Disorder Smoking Status: Current every day smoker Past Alcohol Use History: None Reported Past Drug Use History: Marijuana, Prescription Drug Abuse - Past Family History Father Family Medical History: Hypertension Additional Family Medical History / Comment(s): Father is alive at age 50 with Testosterone deficiency Mother Additional Family Medical History / Comment(s): Mother is alive at age 48 with history of MPD, bipolar, depression. Brother(s) Additional Family Medical History / Comment(s): She has 4 brothers with no major medical problems. She does not have any sisters. She does not have any children. General Exam - General Exam Comments Initial Comments: Constitutional: NAD, AOX3, Pt has pleasant affect. HEENT: NC/AT, trachea midline, neck supple, External ears appear normal, without discharge. Mucous membranes moist. Eyes PERRLA, EOM intact. There is no scleral icterus. No pallor noted. Cardiopulmonary: RRR, no murmurs, rubs or gallops, no JVD noted. Lungs CTAB in anterior and posterior cosme. No peripheral edema. Abdominal exam: Abdomen soft and non-distended. Abdomen non-tender to palpation in all 4 quadrants. Bowel sounds active in LLQ. No hepatosplenomegaly. No ecchy mosis Neuro: CN II-XII grossly intact. No nuchal rigidity. No raccon eyes, no celeste sign, no hemotympanum. No cervical spinal tenderness. MSK: Full active ROM in upper and lower extremities. Limitations: no limitations Course Vital Signs 08/01/19 08/01/19 08/01/19 08:52 17:09 17:30 Temperature 98.9 F 98.9 F Pulse Rate 116 H 116 H 99 Respiratory 18 18 18 Rate Blood Pressure 128/91 128/91 132/88 O2 Sat by Pulse 98 98 100 Oximetry 08/01/19 08/02/19 08/02/19 21:22 06:37 11:30 Temperature 98.2 F 98.4 F Pulse Rate 94 88 90 Respiratory 18 15 16 Rate Blood Pressure 133/83 130/86 119/85 O2 Sat by Pulse 97 96 99 Oximetry Medical Decision Making - Medical Decision Making Patient was signed out to Dr. Aviles at 4 PM on 07/31. Patient was reevaluated this morning by myself, she denies any acute complaints, request continuation of home medications for chronic pain. Patient transferred to psychiatric facility. Case discussed with Dr. Mcallister . - Lab Data Result diagrams: 08/01/19 16:37 08/01/19 16:37 Lab Results 08/01/19 08/01/19 08/01/19 Range/Units 09:09 09:09 16:37 WBC 9.1 (3.8-10.6) k/uL RBC 4.61 (3.80-5.40) m/uL Hgb 13.3 (11.4-16.0) gm/dL Hct 39.8 (34.0-46.0) % MCV 86.5 (80.0-100.0) fL MCH 28.9 (25.0-35.0) pg MCHC 33.4 (31.0-37.0) g/dL RDW 14.4 (11.5-15.5) % Plt Count 272 (150-450) k/uL Neutrophils % 65 % Lymphocytes % 28 % Monocytes % 3 % Eosinophils % 2 % Basophils % 0 % Neutrophils # 5.9 (1.3-7.7) k/uL Lymphocytes # 2.6 (1.0-4.8) k/uL Monocytes # 0.3 (0-1.0) k/uL Eosinophils # 0.2 (0-0.7) k/uL Basophils # 0.0 (0-0.2) k/uL Sodium (137-145) mmol/L Potassium (3.5-5.1) mmol/L Chloride (98-107) mmol/L Carbon Dioxide (22-30) mmol/L Anion Gap mmol/L BUN (7-17) mg/dL Creatinine (0.52-1.04) mg/dL Est GFR (CKD-EPI)AfAm (>60 ml/min/1.73 sqM) Est GFR (CKD-EPI)NonAf (>60 ml/min/1.73 sqM) Glucose (74-99) mg/dL Calcium (8.4-10.2) mg/dL Total Bilirubin (0.2-1.3) mg/dL AST (14-36) U/L ALT (4-34) U/L Alkaline Phosphatase (38-126) U/L Total Protein (6.3-8.2) g/dL Albumin (3.5-5.0) g/dL Urine HCG, Qual Not Detected (Not Detectd) Urine Opiates Screen Not Detected (NotDetected) Ur Oxycodone Screen Not Detected (NotDetected) Urine Methadone Screen Not Detected (NotDetected) Ur Propoxyphene Screen Not Detected (NotDetected) Ur Barbiturates Screen Not Detected (NotDetected) U Tricyclic Antidepress Not Detected (NotDetected) Ur Phencyclidine Scrn Not Detected (NotDetected) Ur Amphetamines Screen Not Detected (NotDetected) U Methamphetamines Scrn Not Detected (NotDetected) U Benzodiazepines Scrn Not Detected (NotDetected) Urine Cocaine Screen Not Detected (NotDetected) U Marijuana (THC) Screen Not Detected (NotDetected) 08/01/19 Range/Units 16:37 WBC (3.8-10.6) k/uL RBC (3.80-5.40) m/uL Hgb (11.4-16.0) gm/dL Hct (34.0-46.0) % MCV (80.0-100.0) fL MCH (25.0-35.0) pg MCHC (31.0-37.0) g/dL RDW (11.5-15.5) % Plt Count (150-450) k/uL Neutrophils % % Lymphocytes % % Monocytes % % Eosinophils % % Basophils % % Neutrophils # (1.3-7.7) k/uL Lymphocytes # (1.0-4.8) k/uL Monocytes # (0-1.0) k/uL Eosinophils # (0-0.7) k/uL Basophils # (0-0.2) k/uL Sodium 139 (137-145) mmol/L Potassium 4.2 (3.5-5.1) mmol/L Chloride 107 (98-107) mmol/L Carbon Dioxide 26 (22-30) mmol/L Anion Gap 6 mmol/L BUN 10 (7-17) mg/dL Creatinine 0.63 (0.52-1.04) mg/dL Est GFR (CKD-EPI)AfAm >90 (>60 ml/min/1.73 sqM) Est GFR (CKD-EPI)NonAf >90 (>60 ml/min/1.73 sqM) Glucose 109 H (74-99) mg/dL Calcium 9.5 (8.4-10.2) mg/dL Total Bilirubin 0.2 (0.2-1.3) mg/dL AST 34 (14-36) U/L ALT 38 H (4-34) U/L Alkaline Phosphatase 95 (38-126) U/L Total Protein 6.5 (6.3-8.2) g/dL Albumin 3.8 (3.5-5.0) g/dL Urine HCG, Qual (Not Detectd) Urine Opiates Screen (NotDetected) Ur Oxycodone Screen (NotDetected) Urine Methadone Screen (NotDetected) Ur Propoxyphene Screen (NotDetected) Ur Barbiturates Screen (NotDetected) U Tricyclic Antidepress (NotDetected) Ur Phencyclidine Scrn (NotDetected) Ur Amphetamines Screen (NotDetected) U Methamphetamines Scrn (NotDetected) U Benzodiazepines Scrn (NotDetected) Urine Cocaine Screen (NotDetected) U Marijuana (THC) Screen (NotDetected) Disposition Clinical Impression: Psychiatric disorder Disposition: TRANSFER TO PSYCH HOSP/UNIT Condition: Serious Is patient prescribed a controlled substance at d/c from ED?: No Referrals: Jose Antonio Pinon Jr, DO [Primary Care Provider] - 1-2 days - Out of Hospital Transfer - Req. Specs Out of Hospital Transfer - Requested Specifics: Psychiatric Non-ICU ([facility])
[2019-08-01 17:18] LABS: Basophils % (A) 0 %; Eosinophils # (A) 0.2 k/uL (0-0.7); Eosinophils % (A) 2 %; HCT 39.8 % (34.0-46.0); HGB 13.3 gm/dL (11.4-16.0); Lymphocytes # (A) 2.6 k/uL (1.0-4.8); Lymphocytes % (A) 28 %; MCH 28.9 pg (25.0-35.0); MCHC 33.4 g/dL (31.0-37.0); MCV 86.5 fL (80.0-100.0); Mean Platelet Volume 8.5; Monocytes # (A) 0.3 k/uL (0-1.0); Monocytes % (A) 3 %; Neutrophils # (A) 5.9 k/uL (1.3-7.7); Neutrophils % (A) 65 %; Platelet Count 272 k/uL (150-450); RBC 4.61 m/uL (3.80-5.40); RDW 14.4 % (11.5-15.5); WBC 9.1 k/uL (3.8-10.6)
[2019-08-01 17:29] LABS: ALT 38 U/L (4-34); AST 34 U/L (14-36); African American GFR (CKD) >90 (>60 ml/min/1.73 sqM); Albumin 3.8 g/dL (3.5-5.0); Alkaline Phosphatase 95 U/L (38-126); Anion Gap 6 mmol/L; Blood Urea Nitrogen 10 mg/dL (7-17); Calcium 9.5 mg/dL (8.4-10.2); Carbon Dioxide 26 mmol/L (22-30); Chloride 107 mmol/L (98-107); Glucose 109 mg/dL (74-99); Non-African American GFR(CKD) >90 (>60 ml/min/1.73 sqM); Potassium 4.2 mmol/L (3.5-5.1); Sodium 139 mmol/L (137-145); Total Bilirubin 0.2 mg/dL (0.2-1.3); Total Protein 6.5 g/dL (6.3-8.2)
[2019-08-01] MEDS ORDERED: NICOTINE 21MG/24HR PATCH TRANSDERM STA (19:54)
[2019-08-01] MEDS ORDERED: clonazePAM 1 MG TAB PO ONE (20:45)
[2019-08-01] MEDS ORDERED: PREGABALIN 100 MG CAP PO ONE (20:45)
[2019-08-01] MEDS ORDERED: OXcarbazepine 300 MG TAB PO ONE (20:45)
[2019-08-01] MEDS ORDERED: MIRTAZAPINE 15 MG TAB PO ONE (20:45)
[2019-08-01] MEDS ORDERED: METOPROLOL SUCCINATE (ER) 100 MG TAB.ER.24H PO ONE (20:45)
[2019-08-01] MEDS ORDERED: OLANZapine 5 MG TAB PO ONE (20:45)
[2019-08-01] MEDS ORDERED: BENZTROPINE MESYLATE 1 MG TAB PO SCH (21:00)
[2019-08-02 06:40] VITALS: TEMP 98.4
[2019-08-02] MEDS ORDERED: HYDROcodone/APAP 7.5-325MG 1 EACH TAB PO PRN (07:19)
[2019-08-02] MEDS ORDERED: PREGABALIN 100 MG CAP PO SCH (09:00)
[2019-08-02] MEDS ORDERED: OXcarbazepine 300 MG TAB PO SCH (09:00)
[2019-08-02] MEDS ORDERED: clonazePAM 1 MG TAB PO PRN (11:58)
[2019-08-02 13:14] VITALS: BP 119/85; PULSE 90; RESP 16
[2019-08-02] MEDS ORDERED: METOPROLOL SUCCINATE (ER) 100 MG TAB.ER.24H PO SCH (20:00)
[2019-08-03] MEDS ORDERED: PANTOPRAZOLE 40 MG TABLET PO SCH (07:30)
== END 2019-08-02 13:50 ==
LOC: EC 08:50
DX: F99 Mental disorder, not otherwise specified (principal); G40.909 Epilepsy, unspecified, not intractable, without status epilepticus; F32.9 Major depressive disorder, single episode, unspecified; F25.9 Schizoaffective disorder, unspecified; F17.200 Nicotine dependence, unspecified, uncomplicated; Z79.899 Other long term (current) drug therapy
CPT/HCPCS: 82075; 36415; 80053; 85025; 81025; 80306; 99285; U0003; S4990

== ENCOUNTER 2019-09-09 15:05 | Emergency (ER) | payer OTHER ==
--- NOTE | 2019-09-09 18:41 | ED ---
Extremity Problem HPI - General Chief complaint: Extremity Problem,Nontraumatic Stated complaint: arm numbness Time Seen by Provider: 09/09/19 17:03 Source: patient Mode of arrival: wheelchair Limitations: no limitations - History of Present Illness Initial comments: Patient is a 23-year-old female presenting to the emergency Department with complaints of a pain in her left arm that started when she woke up this morning. She states that she thinks she laid mostly on her left side last night and when she woke up her arm was tingling, "like it was asleep." Patient states throughout the day she feels like it has not improved and she started having some pain in her upper arm. She states she recently had surgery 2 weeks ago on her abdomen secondary to a tumor removal and is concerned she may have a blood clot. Patient has a follow-up with her surgeon tomorrow and has been recovering well from her surgery. She denies history of blood clots. She denies any significant abdominal pain, only her mild soreness. She denies any recent fever, chills. She denies any nausea or vomiting. She did has no other complaints at this time. Upon arrival to the ER, her vitals are stable. - Related Data Home Medications Medication Instructions Recorded Confirmed Albuterol Inhaler [Ventolin Hfa 2 puff INHALATION RT-Q6H PRN 06/21/19 08/01/19 Inhaler] Benztropine Mesylate [Cogentin] 1 mg PO HS 06/21/19 08/01/19 Metoprolol Succinate (ER) [Toprol 100 mg PO DAILY 06/21/19 08/01/19 Xl] Mirtazapine 30 mg PO HS 06/21/19 08/01/19 OLANZapine 15 mg PO HS 06/21/19 08/01/19 Pregabalin 200 mg PO TID 06/21/19 08/01/19 clonazePAM [KlonoPIN] 1 mg PO BID PRN 06/21/19 08/01/19 HYDROcodone/APAP 7.5-325MG [[place] 1 tab PO QID PRN 08/01/19 08/01/19 7.5-325] Nicotine Polacrilex [Nicotine 4 mg BUCCAL Q4-6H PRN 08/01/19 08/01/19 Lozenge] Omeprazole [PriLOSEC] 20 mg PO AC-BID 08/01/19 08/01/19 Previous Rx's Medication Instructions Recorded OXcarbazepine 600 mg PO BID #28 tablet 06/21/19 Allergies Allergy/AdvReac Type Severity Reaction Status Date / Time No Known Allergies Allergy Verified 09/09/19 15:35 Review of Systems ROS Statement: Those systems with pertinent positive or pertinent negative responses have been documented in the HPI. ROS Other: All systems not noted in ROS Statement are negative. Past Medical History Past Medical History: Seizure Disorder Additional Past Medical History / Comment(s): agoraphobia, borderline, seizure disorder: last seizure was a "1 month ago." Polycystic ovary syndrome, chronic back spasms , autism does not use link. Sinus tachycardia, mass possible cancer patient unsure History of Any Multi-Drug Resistant Organisms: None Reported Past Surgical History: Ear Surgery Additional Past Surgical History / Comment(s): Bilateral ear tube insertion as a young child. Past Anesthesia/Blood Transfusion Reactions: No Reported Reaction Past Psychological History: Depression, PTSD, Schizoaffective Disorder Smoking Status: Current every day smoker Past Alcohol Use History: None Reported Past Drug Use History: Marijuana, Prescription Drug Abuse - Past Family History Father Family Medical History: Hypertension Additional Family Medical History / Comment(s): Father is alive at age 50 with Testosterone deficiency Mother Additional Family Medical History / Comment(s): Mother is alive at age 48 with history of MPD, bipolar, depression. Brother(s) Additional Family Medical History / Comment(s): She has 4 brothers with no major medical problems. She does not have any sisters. She does not have any children. General Exam - General Exam Comments Initial Comments: GENERAL: Well-appearing, well-nourished and in no acute distress. HEAD: Atraumatic, normocephalic. EYES: Pupils equal round and reactive to light, extraocular movements intact, sclera anicteric, conjunctiva are normal. ENT: TMs normal, nares patent, oropharynx clear without exudates. Moist mucous membranes. NECK: Normal range of motion, supple without lymphadenopathy or JVD. LUNGS: Breath sounds clear to auscultation bilaterally and equal. No wheezes rales or rhonchi. HEART: Regular rate and rhythm without murmurs, rubs or gallops. ABDOMEN: Soft, nontender, normoactive bowel sounds. No guarding, no rebound. No masses appreciated. Recent surgery, drain present, no signs of infection. : Deferred EXTREMITIES: Mild pain with palpation of the left upper arm, no signs of inflammation, swelling, erythema. Patient has full left arm range of motion. Her strength is 5 out of 5. She is neurovascular intact. She does have some mild pain with palpation of the left upper trap. No clubbing or cyanosis. NEUROLOGICAL: Cranial nerves II through XII grossly intact. Normal speech, normal gait. PSYCH: Normal mood, normal affect. SKIN: Warm, Dry, normal turgor, no rashes or lesions noted. Limitations: no limitations Course Vital Signs 09/09/19 09/09/19 09/09/19 15:32 17:27 19:00 Temperature 98.6 F 98 F 98.2 F Pulse Rate 120 H 120 H 107 H Respiratory 16 15 20 Rate Blood Pressure 133/96 148/72 158/88 O2 Sat by Pulse 96 94 L 97 Oximetry Medical Decision Making - Medical Decision Making Patient is a 23-year-old female here with complaints of left arm pain since she woke up this morning. She did have recent major abdominal surgery 2 weeks ago and she was concerned for possible blood clot. Her left arm has a normal exam today. Ultrasound does not reveal an acute DVT. Discussed with patient this is most likely result from sleeping on the left side as well as some muscle tightness in her left upper trap. Patient does have a follow-up with her surgeon tomorrow. She is stable for discharge at this time. Return parameters were discussed with the patient she verbalized understanding. Case discussed with Dr. Ling. Disposition Clinical Impression: Left arm pain Disposition: HOME SELF-CARE Condition: Stable Instructions (If sedation given, give patient instructions): Arm Pain (ED) Additional Instructions: Please return to the Emergency Department if symptoms worsen or any other concerns. Follow-up with your doctor tomorrow as discussed. Use heat to the left upper neck. Is patient prescribed a controlled substance at d/c from ED?: No Referrals: Adal Meadows MD [Primary Care Provider] - 1-2 days
--- NOTE | 2019-09-09 19:01 | US ---
EXAMINATION TYPE: US venous doppler duplex UE LT DATE OF EXAM: 09/09/2019 COMPARISON: NONE CLINICAL HISTORY: pain, swelling, numbness. Pain, swelling, numbness x 1 day. No hx of DVT. Patient h ad major abdominal surgery recently. Patient does not take blood thinners. SIDE PERFORMED: Left Left Arm: No evidence of DVT in veins imaged at this time within the left upper extremity. Ulnar vein s appear to be small but compress completely, unable to show clear color flow image of ulnar veins. IMPRESSION: No sign of deep vein thrombosis in the left arm.
[2019-09-11 09:33] VITALS: BP 158/88; PULSE 107; RESP 20; TEMP 98.2
== END 2019-09-09 19:30 | disposition home or self-care (01) ==
LOC: EC 15:05
DX: M79.602 Pain in left arm (principal); F17.200 Nicotine dependence, unspecified, uncomplicated; F32.9 Major depressive disorder, single episode, unspecified; F25.9 Schizoaffective disorder, unspecified; F43.10 Post-traumatic stress disorder, unspecified; G40.909 Epilepsy, unspecified, not intractable, without status epilepticus; Z79.899 Other long term (current) drug therapy
CPT/HCPCS: 99284

== ENCOUNTER 2019-09-14 21:44 | Emergency (ER) | payer OTHER ==
[2019-09-14] MEDS ORDERED: SODIUM CHLORIDE 0.9% 500 ML 500 ML IV ONE (22:46)
[2019-09-14 23:08] LABS: Basophils # (A) 0.1 k/uL (0-0.2); Basophils % (A) 1 %; Eosinophils # (A) 0.4 k/uL (0-0.7); Eosinophils % (A) 4 %; HCT 35.8 % (34.0-46.0); HGB 11.1 gm/dL (11.4-16.0); Hypochromasia Slight; Lymphocytes # (A) 3.2 k/uL (1.0-4.8); Lymphocytes % (A) 32 %; MCH 26.9 pg (25.0-35.0); MCHC 31.1 g/dL (31.0-37.0); MCV 86.6 fL (80.0-100.0); Mean Platelet Volume 9.4; Monocytes # (A) 0.5 k/uL (0-1.0); Monocytes % (A) 5 %; Neutrophils # (A) 5.7 k/uL (1.3-7.7); Neutrophils % (A) 57 %; Platelet Count 406 k/uL (150-450); RBC 4.13 m/uL (3.80-5.40); RDW 13.8 % (11.5-15.5); WBC 10.1 k/uL (3.8-10.6)
[2019-09-14 23:28] LABS: ALT 57 U/L (4-34); AST 43 U/L (14-36); African American GFR (CKD) >90 (>60 ml/min/1.73 sqM); Albumin 3.6 g/dL (3.5-5.0); Alcohol <10 mg/dL; Alkaline Phosphatase 111 U/L (38-126); Anion Gap 10 mmol/L; Blood Urea Nitrogen 9 mg/dL (7-17); Calcium 9.3 mg/dL (8.4-10.2); Carbon Dioxide 27 mmol/L (22-30); Chloride 100 mmol/L (98-107); Glucose 139 mg/dL (74-99); Non-African American GFR(CKD) >90 (>60 ml/min/1.73 sqM); Potassium 4.4 mmol/L (3.5-5.1); Sodium 137 mmol/L (137-145); Total Bilirubin 0.3 mg/dL (0.2-1.3); Total Protein 6.2 g/dL (6.3-8.2)
[2019-09-14 23:57] LABS: Appearance,Urine Cloudy (Clear); Bacteria,Urine Rare /hpf; Bilirubin,Urine 1+ (Negative); Blood,Urine Negative (Negative); Calcium Oxalate Crystals,Urine Many /hpf; Color,Urine Dark Yellow; Glucose,Urine (UA) Negative (Negative); Hyaline Casts,Urine 88 /lpf (0-2); Ketones,Urine 1+ (Negative); Leukocyte Esterase,Urine Moderate (Negative); Mucus,Urine Many /hpf; Nitrite,Urine Negative (Negative); Protein,Urine 2+ (Negative); RBC,Urine 2 /hpf (0-5); Squamous Epithelial Cell,Urine 11 /hpf (0-4); WBC,Urine 30 /hpf (0-5)
[2019-09-15] MEDS ORDERED: SODIUM CHLORIDE 0.9% 500 ML 500 ML IV ONE (00:47)
--- NOTE | 2019-09-15 00:47 | XR ---
EXAMINATION TYPE: XR KUB DATE OF EXAM: 09/15/2019 COMPARISON: NONE HISTORY: Abdominal pain TECHNIQUE: 2 views upright FINDINGS: There is no sign of intestinal obstruction or pneumoperitoneum. Fecal pattern is normal. Th ere is some tubing over the left upper quadrant that could be gastrostomy tube or jejunostomy tube or drainage catheter. There are no pathologic calcifications over the kidneys. Fecal pattern is normal. Lung bases are clear. IMPRESSION: Nonacute abdomen.
--- NOTE | 2019-09-15 01:40 | ED ---
General Adult HPI - General Chief complaint: Abdominal Pain Stated complaint: Poss stitch infection on stomach Time Seen by Provider: 09/14/19 21:57 Source: patient, RN notes reviewed, old records reviewed Mode of arrival: ambulatory Limitations: no limitations - History of Present Illness Initial comments: 24-year-old female patient presents to ED for evaluation of possible infection. Patient reports that 3 weeks ago she had a surgery in which half of her pancreas was removed due to a reported mass in the region. Reports that today she noticed that she is some redness around her drainage tube site. She reports that she has some mild localized discomfort in the region but denies any severe abdominal pain. Pt reports that she had 1-2 beers today but denies any heavy drinking. Denies any chance of being . Denies any other complaints. Systemic: Pt denies fatigue, fever/chills, rash. Pt denies weakness, night sweats, weight loss. Neuro: Pt denies headache, visual disturbances, syncope or pre-syncope. HEENT: Pt denies ocular discharge or irritation, otalgia, rhinorrhea, pharyngitis or notable lymphadenopathy. Cardiopulmonary: Pt denies chest pain, SOB, heart palpitations, dyspnea on exertion. Abdominal/GI: Pt denies n/v/d. : Pt denies dysuria, burning w/ urination, frequency/urgency. Denies new onset urinary or bowel incontinence. MSK: Pt denies myalgia, loss of strength or function in extremities. Neuro: Pt denies new onset weakness, paresthesias. - Related Data Home Medications Medication Instructions Recorded Confirmed Albuterol Inhaler [Ventolin Hfa 2 puff INHALATION RT-Q6H PRN 06/21/19 09/14/19 Inhaler] Metoprolol Succinate (ER) [Toprol 100 mg PO HS 06/21/19 09/14/19 Xl] Mirtazapine 60 mg PO HS 06/21/19 09/14/19 OLANZapine 15 mg PO HS 06/21/19 09/14/19 Pregabalin 200 mg PO TID 06/21/19 09/14/19 clonazePAM [KlonoPIN] 1 mg PO TID PRN 06/21/19 09/14/19 Omeprazole [PriLOSEC] 20 mg PO AC-BID 08/01/19 09/14/19 Benztropine Mesylate [Cogentin] 0.5 mg PO BID 09/14/19 09/14/19 Naproxen Sodium [Aleve] 440 mg PO BID PRN 09/14/19 09/14/19 OLANZapine ODT [ZyPREXA ZYDIS] 5 mg PO TID 09/14/19 09/14/19 Previous Rx's Medication Instructions Recorded OXcarbazepine 600 mg PO BID #28 tablet 06/21/19 Cephalexin [Keflex] 500 mg PO Q6HR 10 Days #40 cap 09/15/19 Allergies Allergy/AdvReac Type Severity Reaction Status Date / Time No Known Allergies Allergy Verified 09/14/19 23:01 Review of Systems ROS Statement: Those systems with pertinent positive or pertinent negative responses have been documented in the HPI. ROS Other: All systems not noted in ROS Statement are negative. Past Medical History Past Medical History: Seizure Disorder Additional Past Medical History / Comment(s): agoraphobia, borderline, seizure disorder: last seizure was a "1 month ago." Polycystic ovary syndrome, chronic back spasms , autism does not use link. Sinus tachycardia, mass possible cancer patient unsure, wrist drop on the left History of Any Multi-Drug Resistant Organisms: None Reported Past Surgical History: Ear Surgery Additional Past Surgical History / Comment(s): Bilateral ear tube insertion as a young child. Tumor removal and 1/2 pancrease has drain in place Past Anesthesia/Blood Transfusion Reactions: No Reported Reaction Past Psychological History: Depression, PTSD, Schizoaffective Disorder Smoking Status: Current every day smoker Past Alcohol Use History: None Reported Past Drug Use History: Marijuana, Prescription Drug Abuse - Past Family History Father Family Medical History: Hypertension Additional Family Medical History / Comment(s): Father is alive at age 50 with Testosterone deficiency Mother Additional Family Medical History / Comment(s): Mother is alive at age 48 with history of MPD, bipolar, depression. Brother(s) Additional Family Medical History / Comment(s): She has 4 brothers with no major medical problems. She does not have any sisters. She does not have any children. General Exam - General Exam Comments Initial Comments: Constitutional: NAD, AOX3, Pt has pleasant affect. HEENT: NC/AT, trachea midline, neck supple, no lymphadenopathy. External ears appear normal, without discharge. Mucous membranes moist. Eyes PERRLA, EOM intact. There is no scleral icterus. No pallor noted. Cardiopulmonary: RRR, no murmurs, rubs or gallops, no JVD noted. Lungs CTAB in anterior and posterior cosme. No peripheral edema. Abdominal exam: Abdomen soft and non-distended. Abdomen nontender to palpation in all 4 quadrants. There is a mild amount of localized discomfort around the a eddie of tube insertion. Small amount of erythema. No purulent drainage is noted. No streaking. No fluctuance. Neuro: CN II-XII grossly intact. No nuchal rigidity. No raccon eyes, no celeste sign, no hemotympanum. No cervical spinal tenderness. MSK: Full active ROM in upper and lower extremities, 5/5 stregnth. Limitations: no limitations Course Vital Signs 09/14/19 21:46 Temperature 99.2 F Pulse Rate 132 H Respiratory 20 Rate Blood Pressure 128/94 O2 Sat by Pulse 100 Oximetry Medical Decision Making - Medical Decision Making 24 year old Female patient with chief evaluation of possible infection around th e suture site stemming from pancreas surgery. Physical exam displayed small amount of erythema around the tube. Patient laboratory investigations are 1 non-impressive. Mild transaminitis. UA as contaminants will culture. Cavies but nonacute abdomen. Patient will be placed on Keflex. Will follow up with her surgeon and she has an appointment next week and return to ER if any worsening symptoms. Case discussed and pt seen by Dr. Isaac. - Lab Data Result diagrams: 09/14/19 22:50 09/14/19 22:50 Lab Results 09/14/19 09/14/19 09/14/19 Range/Units 22:50 22:50 22:50 WBC 10.1 (3.8-10.6) k/uL RBC 4.13 (3.80-5.40) m/uL Hgb 11.1 L (11.4-16.0) gm/dL Hct 35.8 (34.0-46.0) % MCV 86.6 (80.0-100.0) fL MCH 26.9 (25.0-35.0) pg MCHC 31.1 (31.0-37.0) g/dL RDW 13.8 (11.5-15.5) % Plt Count 406 (150-450) k/uL Neutrophils % 57 % Lymphocytes % 32 % Monocytes % 5 % Eosinophils % 4 % Basophils % 1 % Neutrophils # 5.7 (1.3-7.7) k/uL Lymphocytes # 3.2 (1.0-4.8) k/uL Monocytes # 0.5 (0-1.0) k/uL Eosinophils # 0.4 (0-0.7) k/uL Basophils # 0.1 (0-0.2) k/uL Hypochromasia Slight Sodium 137 (137-145) mmol/L Potassium 4.4 (3.5-5.1) mmol/L Chloride 100 (98-107) mmol/L Carbon Dioxide 27 (22-30) mmol/L Anion Gap 10 mmol/L BUN 9 (7-17) mg/dL Creatinine 0.75 (0.52-1.04) mg/dL Est GFR (CKD-EPI)AfAm >90 (>60 ml/min/1.73 sqM) Est GFR (CKD-EPI)NonAf >90 (>60 ml/min/1.73 sqM) Glucose 139 H (74-99) mg/dL Plasma Lactic Acid Jason (0.7-2.0) mmol/L Calcium 9.3 (8.4-10.2) mg/dL Total Bilirubin 0.3 (0.2-1.3) mg/dL AST 43 H (14-36) U/L ALT 57 H (4-34) U/L Alkaline Phosphatase 111 (38-126) U/L Total Protein 6.2 L (6.3-8.2) g/dL Albumin 3.6 (3.5-5.0) g/dL Lipase 161 (23-300) U/L Urine Color Dark Yellow Urine Appearance Cloudy H (Clear) Urine pH 6.0 (5.0-8.0) Ur Specific [place] 1.050 H (1.001-1.035) Urine Protein 2+ H (Negative) Urine Glucose (UA) Negative (Negative) Urine Ketones 1+ H (Negative) Urine Blood Negative (Negative) Urine Nitrite Negative (Negative) Urine Bilirubin 1+ H (Negative) Urine Urobilinogen 6.0 (<2.0) mg/dL Ur Leukocyte Esterase Moderate H (Negative) Urine RBC 2 (0-5) /hpf Urine WBC 30 H (0-5) /hpf Ur Squamous Epith Cells 11 H (0-4) /hpf Calcium Oxalate Crystal Many H (None) /hpf Urine Bacteria Rare H (None) /hpf Hyaline Casts 88 H (0-2) /lpf Urine Mucus Many H (None) /hpf Urine HCG, Qual (Not Detectd) Serum Alcohol <10 mg/dL 09/14/19 09/14/19 Range/Units 22:50 22:50 WBC (3.8-10.6) k/uL RBC (3.80-5.40) m/uL Hgb (11.4-16.0) gm/dL Hct (34.0-46.0) % MCV (80.0-100.0) fL MCH (25.0-35.0) pg MCHC (31.0-37.0) g/dL RDW (11.5-15.5) % Plt Count (150-450) k/uL Neutrophils % % Lymphocytes % % Monocytes % % Eosinophils % % Basophils % % Neutrophils # (1.3-7.7) k/uL Lymphocytes # (1.0-4.8) k/uL Monocytes # (0-1.0) k/uL Eosinophils # (0-0.7) k/uL Basophils # (0-0.2) k/uL Hypochromasia Sodium (137-145) mmol/L Potassium (3.5-5.1) mmol/L Chloride (98-107) mmol/L Carbon Dioxide (22-30) mmol/L Anion Gap mmol/L BUN (7-17) mg/dL Creatinine (0.52-1.04) mg/dL Est GFR (CKD-EPI)AfAm (>60 ml/min/1.73 sqM) Est GFR (CKD-EPI)NonAf (>60 ml/min/1.73 sqM) Glucose (74-99) mg/dL Plasma Lactic Acid Jason 1.8 (0.7-2.0) mmol/L Calcium (8.4-10.2) mg/dL Total Bilirubin (0.2-1.3) mg/dL AST (14-36) U/L ALT (4-34) U/L Alkaline Phosphatase (38-126) U/L Total Protein (6.3-8.2) g/dL Albumin (3.5-5.0) g/dL Lipase (23-300) U/L Urine Color Urine Appearance (Clear) Urine pH (5.0-8.0) Ur Specific [place] (1.001-1.035) Urine Protein (Negative) Urine Glucose (UA) (Negative) Urine Ketones (Negative) Urine Blood (Negative) Urine Nitrite (Negative) Urine Bilirubin (Negative) Urine Urobilinogen (<2.0) mg/dL Ur Leukocyte Esterase (Negative) Urine RBC (0-5) /hpf Urine WBC (0-5) /hpf Ur Squamous Epith Cells (0-4) /hpf Calcium Oxalate Crystal (None) /hpf Urine Bacteria (None) /hpf Hyaline Casts (0-2) /lpf Urine Mucus (None) /hpf Urine HCG, Qual Not Detected (Not Detectd) Serum Alcohol mg/dL Disposition Clinical Impression: Superficial skin infection, Shane brock drain site pain Disposition: HOME SELF-CARE Condition: Stable Instructions (If sedation given, give patient instructions): Shane-Brock Drain Care (ED) Additional Instructions: Follow-up with primary care provider and surgeon tomorrow. Take antibiotics as directed. Return to ER if condition worsens. Prescriptions: Cephalexin [Keflex] 500 mg PO Q6HR 10 Days #40 cap Is patient prescribed a controlled substance at d/c from ED?: No Referrals: Adal Meadows MD [Primary Care Provider] - 1-2 days
[2019-09-15 01:41] VITALS: BP 121/63; RESP 18
[2019-09-15 02:09] VITALS: PULSE 98; TEMP 97.6
== END 2019-09-15 02:09 | disposition home or self-care (01) ==
LOC: EC 21:44
DX: L08.9 Local infection of the skin and subcutaneous tissue, unspecified (principal); T85.848A Pain due to other internal prosthetic devices, implants and grafts, initial encounter; R74.0 Nonspecific elevation of levels of transaminase and lactic acid dehydrogenase [LDH]; R82.998 Other abnormal findings in urine; F32.9 Major depressive disorder, single episode, unspecified; F43.10 Post-traumatic stress disorder, unspecified; G40.909 Epilepsy, unspecified, not intractable, without status epilepticus; G89.29 Other chronic pain; M54.9 Dorsalgia, unspecified; F17.200 Nicotine dependence, unspecified, uncomplicated; Z79.899 Other long term (current) drug therapy; Z87.19 Personal history of other diseases of the digestive system; Z98.890 Other specified postprocedural states
CPT/HCPCS: 36415; 80053; 83605; 83690; 85025; 81025; 87040; 99284; 96365; G0480; J0696; 74018; 80320; 81001; 87086

== ENCOUNTER 2019-09-22 21:22 | Emergency (ER) | payer OTHER ==
[2019-09-22] MEDS ORDERED: SODIUM CHLORIDE 0.9% 1,000 ML IV STA (22:01)
--- NOTE | 2019-09-22 22:02 | ED ---
General Adult HPI - General Chief complaint: Abdominal Pain Stated complaint: Vomiting,Nausea Time Seen by Provider: 09/22/19 21:47 Source: patient, RN notes reviewed Mode of arrival: ambulatory Limitations: no limitations - History of Present Illness Initial comments: 24-year-old female presents to the emergency department for a chief complaint of abdominal pain. Patient states that she ate fast food and beer and then had mild upper abdominal pain associated with nausea. States she vomited a few times. States the pain wraps around her upper abdomen. Patient had a removal of a mass on her pancreas at [facility] a little less than one month ago according to patient. She has a drain in place at this time. No fevers or chills.Patient has no other complaints at this time including shortness of breath, chest pain, headache, or visual changes. - Related Data Home Medications Medication Instructions Recorded Confirmed Albuterol Inhaler [Ventolin Hfa 2 puff INHALATION RT-Q6H PRN 06/21/19 09/22/19 Inhaler] Metoprolol Succinate (ER) [Toprol 100 mg PO HS 06/21/19 09/22/19 Xl] Mirtazapine 60 mg PO HS 06/21/19 09/22/19 OLANZapine 15 mg PO HS 06/21/19 09/22/19 Pregabalin 200 mg PO TID 06/21/19 09/22/19 clonazePAM [KlonoPIN] 1 mg PO TID 06/21/19 09/22/19 OLANZapine ODT [ZyPREXA ZYDIS] 5 mg PO TID 09/14/19 09/22/19 Fish Oil/Dha/Epa [Fish Oil 1,200 1 cap PO DAILY 09/22/19 09/22/19 mg Fish Oil] Multivitamins, Thera [Multivitamin 1 tab PO DAILY 09/22/19 09/22/19 (formulary)] OXcarbazepine [Trileptal] 600 mg PO BID 09/22/19 09/22/19 Omeprazole Magnesium [PriLOSEC OTC] 20 mg PO BID 09/22/19 09/22/19 QUEtiapine [SEROquel] 100 mg PO HS 09/22/19 09/22/19 Allergies Allergy/AdvReac Type Severity Reaction Status Date / Time No Known Allergies Allergy Verified 09/22/19 22:42 Review of Systems ROS Statement: Those systems with pertinent positive or pertinent negative responses have been documented in the HPI. ROS Other: All systems not noted in ROS Statement are negative. Past Medical History Past Medical History: Seizure Disorder Additional Past Medical History / Comment(s): agoraphobia, borderline, seizure disorder: last seizure was a "1 month ago." Polycystic ovary syndrome, chronic back spasms , autism does not use link. Sinus tachycardia, mass possible cancer patient unsure, wrist drop on the left History of Any Multi-Drug Resistant Organisms: None Reported Past Surgical History: Ear Surgery Additional Past Surgical History / Comment(s): Bilateral ear tube insertion as a young child. 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 Past Anesthesia/Blood Transfusion Reactions: No Reported Reaction Past Psychological History: Depression, PTSD, Schizoaffective Disorder Smoking Status: Vaper Past Alcohol Use History: Occasional Past Drug Use History: Marijuana, Prescription Drug Abuse - Past Family History Father Family Medical History: Hypertension Additional Family Medical History / Comment(s): Father is alive at age 50 with Testosterone deficiency Mother Additional Family Medical History / Comment(s): Mother is alive at age 48 with history of MPD, bipolar, depression. Brother(s) Additional Family Medical History / Comment(s): She has 4 brothers with no major medical problems. She does not have any sisters. She does not have any children. General Exam Limitations: no limitations General appearance: alert, in no apparent distress Head exam: Present: atraumatic, normocephalic, normal inspection Eye exam: Present: normal appearance, PERRL, EOMI. Absent: scleral icterus, conjunctival injection, periorbital swelling ENT exam: Present: normal exam, mucous membranes moist Neck exam: Present: normal inspection, full ROM. Absent: tenderness, meningismus, lymphadenopathy Respiratory exam: Present: normal lung sounds bilaterally. Absent: respiratory distress, wheezes, rales, rhonchi, stridor Cardiovascular Exam: Present: regular rate, normal rhythm, normal heart sounds. Absent: systolic murmur, diastolic murmur, rubs, gallop, clicks GI/Abdominal exam: Present: soft, tenderness (Upper abdominal tenderness. Radha gical scar appears), normal bowel sounds. Absent: distended, guarding, rebound, rigid Neurological exam: Present: alert Course Vital Signs 09/22/19 09/22/19 09/22/19 21:34 21:53 23:16 Temperature 98.4 F Pulse Rate 130 H 111 H 111 H Respiratory 18 18 16 Rate Blood Pressure 150/89 139/96 136/96 O2 Sat by Pulse 97 97 98 Oximetry 09/22/19 09/23/19 23:19 00:58 Temperature 98.4 F 98.1 F Pulse Rate 110 H 100 Respiratory 16 16 Rate Blood Pressure 136/96 137/92 O2 Sat by Pulse 98 97 Oximetry Medical Decision Making - Medical Decision Making CBC CMP unremarkable. Urinalysis unremarkable. CT abdomen and pelvis shows inflammatory changes in the retroperitoneum around the pancreas consistent with acute on chronic pancreatitis. There is a drainage catheter apparently draining the pseudocyst of the pancreas evident on the previous CAT scan with fat stranding in. Pancreatic fluid overall increased. Normal appendix. There is a dilated jejunum suggestive of partial mechanical obstruction or small bowel localized ileus. However patient has only vomited once and is passing gas. I did attempt to call patient's surgeon Dr. Terrell eRad from [place] but was unable to get through to surgical team. At this point patient is and will be discharged home to follow up with her surgeon. However if she has any worsening symptoms or uncontrolled vomiting she is to return here to the emergency room. - Lab Data Result diagrams: 09/22/19 22:50 09/22/19 22:50 Lab Results 09/22/19 09/22/19 09/22/19 Range/Units 22:06 22:06 22:50 WBC 13.2 H (3.8-10.6) k/uL RBC 4.61 (3.80-5.40) m/uL Hgb 13.1 (11.4-16.0) gm/dL Hct 39.6 (34.0-46.0) % MCV 86.0 (80.0-100.0) fL MCH 28.3 (25.0-35.0) pg MCHC 33.0 (31.0-37.0) g/dL RDW 13.9 (11.5-15.5) % Plt Count 334 (150-450) k/uL Neutrophils % 66 % Lymphocytes % 26 % Monocytes % 4 % Eosinophils % 3 % Basophils % 0 % Neutrophils # 8.7 H (1.3-7.7) k/uL Lymphocytes # 3.4 (1.0-4.8) k/uL Monocytes # 0.5 (0-1.0) k/uL Eosinophils # 0.4 (0-0.7) k/uL Basophils # 0.1 (0-0.2) k/uL Hypochromasia Slight Sodium (137-145) mmol/L Potassium (3.5-5.1) mmol/L Chloride (98-107) mmol/L Carbon Dioxide (22-30) mmol/L Anion Gap mmol/L BUN (7-17) mg/dL Creatinine (0.52-1.04) mg/dL Est GFR (CKD-EPI)AfAm (>60 ml/min/1.73 sqM) Est GFR (CKD-EPI)NonAf (>60 ml/min/1.73 sqM) Glucose (74-99) mg/dL Plasma Lactic Acid Jason (0.7-2.0) mmol/L Calcium (8.4-10.2) mg/dL Total Bilirubin (0.2-1.3) mg/dL AST (14-36) U/L ALT (4-34) U/L Alkaline Phosphatase (38-126) U/L Total Protein (6.3-8.2) g/dL Albumin (3.5-5.0) g/dL Amylase (30-110) U/L Lipase (23-300) U/L Urine Color Yellow Urine Appearance Cloudy H (Clear) Urine pH 7.5 (5.0-8.0) Ur Specific [place] 1.017 (1.001-1.035) Urine Protein Negative (Negative) Urine Glucose (UA) Negative (Negative) Urine Ketones Negative (Negative) Urine Blood Negative (Negative) Urine Nitrite Negative (Negative) Urine Bilirubin Negative (Negative) Urine Urobilinogen <2.0 (<2.0) mg/dL Ur Leukocyte Esterase Trace H (Negative) Urine WBC 4 (0-5) /hpf Ur Squamous Epith Cells 1 (0-4) /hpf Urine Bacteria Occasional H (None) /hpf Urine Yeast (Budding) Few H (None) /hpf Urine HCG, Qual Not Detected (Not Detectd) 09/22/19 09/22/19 Range/Units 22:50 22:50 WBC (3.8-10.6) k/uL RBC (3.80-5.40) m/uL Hgb (11.4-16.0) gm/dL Hct (34.0-46.0) % MCV (80.0-100.0) fL MCH (25.0-35.0) pg MCHC (31.0-37.0) g/dL RDW (11.5-15.5) % Plt Count (150-450) k/uL Neutrophils % % Lymphocytes % % Monocytes % % Eosinophils % % Basophils % % Neutrophils # (1.3-7.7) k/uL Lymphocytes # (1.0-4.8) k/uL Monocytes # (0-1.0) k/uL Eosinophils # (0-0.7) k/uL Basophils # (0-0.2) k/uL Hypochromasia Sodium 140 (137-145) mmol/L Potassium 4.5 (3.5-5.1) mmol/L Chloride 105 (98-107) mmol/L Carbon Dioxide 25 (22-30) mmol/L Anion Gap 10 mmol/L BUN 8 (7-17) mg/dL Creatinine 0.67 (0.52-1.04) mg/dL Est GFR (CKD-EPI)AfAm >90 (>60 ml/min/1.73 sqM) Est GFR (CKD-EPI)NonAf >90 (>60 ml/min/1.73 sqM) Glucose 102 H (74-99) mg/dL Plasma Lactic Acid Jason 1.3 (0.7-2.0) mmol/L Calcium 10.1 (8.4-10.2) mg/dL Total Bilirubin 0.3 (0.2-1.3) mg/dL AST 24 (14-36) U/L ALT 21 (4-34) U/L Alkaline Phosphatase 119 (38-126) U/L Total Protein 7.2 (6.3-8.2) g/dL Albumin 4.3 (3.5-5.0) g/dL Amylase 59 (30-110) U/L Lipase 168 (23-300) U/L Urine Color Urine Appearance (Clear) Urine pH (5.0-8.0) Ur Specific [place] (1.001-1.035) Urine Protein (Negative) Urine Glucose (UA) (Negative) Urine Ketones (Negative) Urine Blood (Negative) Urine Nitrite (Negative) Urine Bilirubin (Negative) Urine Urobilinogen (<2.0) mg/dL Ur Leukocyte Esterase (Negative) Urine WBC (0-5) /hpf Ur Squamous Epith Cells (0-4) /hpf Urine Bacteria (None) /hpf Urine Yeast (Budding) (None) /hpf Urine HCG, Qual (Not Detectd) Disposition Clinical Impression: Ileus, Abdominal pain Disposition: HOME SELF-CARE Condition: Good Instructions (If sedation given, give patient instructions): Abdominal Pain (ED) Additional Instructions: Please follow-up with your surgeon tomorrow morning. If you have any worsening symptoms such as severe pain, significant vomiting, or fevers return here to the emergency room Is patient prescribed a controlled substance at d/c from ED?: No Referrals: Adal Meadows MD [Primary Care Provider] - 1-2 days Time of Disposition: 00:46
[2019-09-22 22:20] LABS: Appearance,Urine Cloudy (Clear); Bacteria,Urine Occasional /hpf; Bilirubin,Urine Negative (Negative); Blood,Urine Negative (Negative); Budding Yeast,Urine Few /hpf; Color,Urine Yellow; Glucose,Urine (UA) Negative (Negative); Ketones,Urine Negative (Negative); Leukocyte Esterase,Urine Trace (Negative); Nitrite,Urine Negative (Negative); PH, Urine 7.5 (5.0-8.0); Protein,Urine Negative (Negative); Specific Gravity,Urine 1.017 (1.001-1.035); Squamous Epithelial Cell,Urine 1 /hpf (0-4); Urobilinogen,Urine <2.0 mg/dL (<2.0); WBC,Urine 4 /hpf (0-5)
[2019-09-22 23:01] LABS: Basophils # (A) 0.1 k/uL (0-0.2); Basophils % (A) 0 %; Eosinophils # (A) 0.4 k/uL (0-0.7); Eosinophils % (A) 3 %; HCT 39.6 % (34.0-46.0); HGB 13.1 gm/dL (11.4-16.0); Hypochromasia Slight; Lymphocytes # (A) 3.4 k/uL (1.0-4.8); Lymphocytes % (A) 26 %; MCH 28.3 pg (25.0-35.0); Mean Platelet Volume 8.9; Monocytes # (A) 0.5 k/uL (0-1.0); Monocytes % (A) 4 %; Neutrophils # (A) 8.7 k/uL (1.3-7.7); Neutrophils % (A) 66 %; Platelet Count 334 k/uL (150-450); RBC 4.61 m/uL (3.80-5.40); RDW 13.9 % (11.5-15.5); WBC 13.2 k/uL (3.8-10.6)
[2019-09-22 23:11] LABS: ALT 21 U/L (4-34); AST 24 U/L (14-36); African American GFR (CKD) >90 (>60 ml/min/1.73 sqM); Albumin 4.3 g/dL (3.5-5.0); Alkaline Phosphatase 119 U/L (38-126); Amylase 59 U/L (30-110); Anion Gap 10 mmol/L; Blood Urea Nitrogen 8 mg/dL (7-17); Calcium 10.1 mg/dL (8.4-10.2); Carbon Dioxide 25 mmol/L (22-30); Chloride 105 mmol/L (98-107); Glucose 102 mg/dL (74-99); Non-African American GFR(CKD) >90 (>60 ml/min/1.73 sqM); Potassium 4.5 mmol/L (3.5-5.1); Sodium 140 mmol/L (137-145); Total Bilirubin 0.3 mg/dL (0.2-1.3); Total Protein 7.2 g/dL (6.3-8.2)
[2019-09-22 23:17] VITALS: RESP 16
--- NOTE | 2019-09-22 23:27 | CT ---
EXAMINATION TYPE: CT abdomen pelvis w con DATE OF EXAM: 09/22/2019 COMPARISON: 04/24/2019 HISTORY: Abd Pain CT DLP: 1917.20 mGycm Automated exposure control for dose reduction was used. CONTRAST: Performed with IV Contrast, patient injected with 100 mL of Isovue 300. Lung bases are clear. There is no pleural effusion. Heart size is normal. There is no pericardial eff usion. Liver shows no focal defect. Gallbladder appears normal. There is high density material in the stomac h that could be medication. Spleen is intact. There is some fat stranding and fluid collection involv ing the retroperitoneum and pancreas. There is drainage catheter in the retroperitoneum with the tip anterior to the pancreatic head. There are dilated loops of jejunum in the upper abdomen that measure up to 3.8 cm. Distal small bowel is not dilated. I see no transition point. There is no adrenal mass. Kidneys show satisfactory contrast opacification. There is no hydronephrosi s. Ureters are not dilated. There is no retroperitoneal adenopathy. Bladder distends smoothly. Uterus is anteverted. The cul-de-sac is clear fluid. There are no adnexal masses. Appendix is inferior and appears normal. There is no inguinal hernia. Lumbar vertebra have normal spacing and alignment. Posterior elements are intact. Bony pelvis appears intact. IMPRESSION: Inflammatory changes in the retroperitoneum around the pancreas consistent with acute and chronic garcía creatitis. There is a drainage catheter apparently draining the pseudocyst of the pancreas evident on the previous CT scan. Fat stranding and peripancreatic fluid overall increased compared to old exam. Normal appendix. Dilated jejunum suggestive of partial mechanical obstruction or small bowel localized ileus is a tirado ge compared to old exam.
[2019-09-23] MEDS ORDERED: MORPHINE SULFATE 4 MG/ML SYRINGE IVP STA (00:18)
[2019-09-23 01:00] VITALS: BP 137/92; PULSE 100; TEMP 98.1
== END 2019-09-23 01:10 | disposition home or self-care (01) ==
LOC: EC 21:22
DX: K56.7 Ileus, unspecified (principal); K86.3 Pseudocyst of pancreas; G40.909 Epilepsy, unspecified, not intractable, without status epilepticus; F25.9 Schizoaffective disorder, unspecified; F32.9 Major depressive disorder, single episode, unspecified; F17.290 Nicotine dependence, other tobacco product, uncomplicated; Z79.899 Other long term (current) drug therapy
CPT/HCPCS: 36415; 80053; 82150; 83605; 83690; 85025; 81001; 81025; 74177; 99284; 96374; 96361 ×2; Q9967

== ENCOUNTER 2019-12-23 12:09 | Emergency (ER) | payer OTHER ==
[2019-12-23 12:36] VITALS: BP 91/77; PULSE 109; RESP 18; TEMP 98
[2019-12-23] MEDS ORDERED: FLUORESCEIN STRIPS 1 MG STRIP RIGHT EYE ONE ×2 (12:43→12:57)
[2019-12-23] MEDS ORDERED: PROPARACAINE 0.5% OPHTH DROPS 15 ML BTL RIGHT EYE STA (12:43)
[2019-12-23] MEDS ORDERED: TOBRAMYCIN 0.3% OPHTH DROPS 5 ML BTL RIGHT EYE STA (13:03)
--- NOTE | 2019-12-23 13:09 | ED ---
Eye Problem HPI - General Chief complaint: Eye Problems Stated complaint: rt eye irritation Time Seen by Provider: 12/23/19 12:37 Source: patient, RN notes reviewed Mode of arrival: ambulatory Limitations: no limitations - History of Present Illness Initial comments: This a 24-year-old female presents emergency Department with chief complaint of right eye irritation. Patient states that she will go over the right eye irritation. Patient states she feels like she is something in her right eye. Patient states that it is very sent to the light and has been tearing. Patient states her tenderness of the day. Patient states that she feels that she had some fiberglass from her apartment and MRI. Patient is not wearing contacts. - Related Data Home Medications Medication Instructions Recorded Confirmed Albuterol Inhaler [Ventolin Hfa 2 puff INHALATION RT-Q6H PRN 06/21/19 09/22/19 Inhaler] Metoprolol Succinate (ER) [Toprol 100 mg PO HS 06/21/19 09/22/19 Xl] Mirtazapine 60 mg PO HS 06/21/19 09/22/19 OLANZapine 15 mg PO HS 06/21/19 09/22/19 Pregabalin 200 mg PO TID 06/21/19 09/22/19 clonazePAM [KlonoPIN] 1 mg PO TID 06/21/19 09/22/19 OLANZapine ODT [ZyPREXA ZYDIS] 5 mg PO TID 09/14/19 09/22/19 Fish Oil/Dha/Epa [Fish Oil 1,200 1 cap PO DAILY 09/22/19 09/22/19 mg Fish Oil] Multivitamins, Thera [Multivitamin 1 tab PO DAILY 09/22/19 09/22/19 (formulary)] OXcarbazepine [Trileptal] 600 mg PO BID 09/22/19 09/22/19 Omeprazole Magnesium [PriLOSEC OTC] 20 mg PO BID 09/22/19 09/22/19 QUEtiapine [SEROquel] 100 mg PO HS 09/22/19 09/22/19 Allergies Allergy/AdvReac Type Severity Reaction Status Date / Time No Known Allergies Allergy Verified 12/23/19 12:36 Review of Systems ROS Statement: Those systems with pertinent positive or pertinent negative responses have been documented in the HPI. ROS Other: All systems not noted in ROS Statement are negative. Past Medical History Past Medical History: Seizure Disorder Additional Past Medical History / Comment(s): agoraphobia, borderline, seizure disorder: last seizure was a "1 month ago." Polycystic ovary syndrome, chronic back spasms , autism does not use link. Sinus tachycardia, mass possible cancer patient unsure, wrist drop on the left History of Any Multi-Drug Resistant Organisms: None Reported Past Surgical History: Ear Surgery Additional Past Surgical History / Comment(s): Bilateral ear tube insertion as a young child. 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 Past Anesthesia/Blood Transfusion Reactions: No Reported Reaction Past Psychological History: Depression, PTSD, Schizoaffective Disorder Smoking Status: Current every day smoker, Vaper Past Alcohol Use History: Occasional Past Drug Use History: Marijuana, Prescription Drug Abuse - Past Family History Father Family Medical History: Hypertension Additional Family Medical History / Comment(s): Father is alive at age 50 with Testosterone deficiency Mother Additional Family Medical History / Comment(s): Mother is alive at age 48 with history of MPD, bipolar, depression. Brother(s) Additional Family Medical History / Comment(s): She has 4 brothers with no major medical problems. She does not have any sisters. She does not have any children. General Exam Limitations: no limitations General appearance: alert, in no apparent distress Head exam: Present: atraumatic, normocephalic, normal inspection Eye exam: Present: PERRL, EOMI, conjunctival injection (Mild right no foreign body noted), other (Patient complete relief of symptoms after proparacaine eyedrops. Fluorescein uptake noted in the lower portion no foreign body noted.). Absent: normal appearance, scleral icterus, periorbital swelling ENT exam: Present: normal exam, normal oropharynx, mucous membranes moist Neck exam: Present: normal inspection, full ROM. Absent: tenderness, meningismus, lymphadenopathy Respiratory exam: Present: normal lung sounds bilaterally. Absent: respiratory distress, wheezes, rales, rhonchi, stridor Cardiovascular Exam: Present: regular rate, normal rhythm, normal heart sounds. Absent: systolic murmur, diastolic murmur, rubs, gallop, clicks Course Vital Signs 12/23/19 12:34 Temperature 98.0 F Pulse Rate 109 H Respiratory 18 Rate Blood Pressure 91/77 O2 Sat by Pulse 100 Oximetry Medical Decision Making - Medical Decision Making Patient has corneal abrasion no foreign body noted. Up-to-date on her tetanus. Patient was started on Tobrex eyedrops will follow-up with ophthalmology on- call Dr. Carlos. Return parameters were discussed. Disposition Clinical Impression: Corneal abrasion, right Disposition: HOME SELF-CARE Condition: Stable Instructions (If sedation given, give patient instructions): Corneal Abrasion (ED) Additional Instructions: Use Tobrex eyedrops 1 drop every 4 hours for next 5 days. Please follow-up with ophthalmology. Please return to the Emergency Department if symptoms worsen or any other concerns. Is patient prescribed a controlled substance at d/c from ED?: No Referrals: Adal Meadows MD [Primary Care Provider] - 1-2 days Lyssa Carlos MD [STAFF PHYSICIAN] - 1-2 days Time of Disposition: 13:08
== END 2019-12-23 13:20 | disposition home or self-care (01) ==
LOC: EC 12:09
DX: S05.01XA Injury of conjunctiva and corneal abrasion without foreign body, right eye, initial encounter (principal); G40.909 Epilepsy, unspecified, not intractable, without status epilepticus; F32.9 Major depressive disorder, single episode, unspecified; F43.10 Post-traumatic stress disorder, unspecified; F25.9 Schizoaffective disorder, unspecified; F17.290 Nicotine dependence, other tobacco product, uncomplicated; Z79.899 Other long term (current) drug therapy; X58.XXXA Exposure to other specified factors, initial encounter
CPT/HCPCS: 99283

== ENCOUNTER 2020-03-02 21:34 | Inpatient (IN) | payer MEDICAID, OTHER ==
[2020-03-02 22:34] LABS: Basophils # (A) 0.1 k/uL (0-0.2); Basophils % (A) 1 %; Eosinophils # (A) 0.2 k/uL (0-0.7); Eosinophils % (A) 1 %; HGB 15.1 gm/dL (11.4-16.0); Lymphocytes # (A) 2.4 k/uL (1.0-4.8); Lymphocytes % (A) 20 %; MCH 28.6 pg (25.0-35.0); MCHC 34.4 g/dL (31.0-37.0); MCV 83.4 fL (80.0-100.0); Mean Platelet Volume 8.2; Monocytes # (A) 0.5 k/uL (0-1.0); Monocytes % (A) 4 %; Neutrophils # (A) 9.1 k/uL (1.3-7.7); Neutrophils % (A) 73 %; Platelet Count 313 k/uL (150-450); RBC 5.28 m/uL (3.80-5.40); RDW 14.3 % (11.5-15.5); WBC 12.5 k/uL (3.8-10.6)
[2020-03-02 22:43] LABS: ALT 33 U/L (4-34); AST 35 U/L (14-36); African American GFR (CKD) >90 (>60 ml/min/1.73 sqM); Albumin 4.5 g/dL (3.5-5.0); Alkaline Phosphatase 102 U/L (38-126); Anion Gap 10 mmol/L; Blood Urea Nitrogen 16 mg/dL (7-17); Carbon Dioxide 24 mmol/L (22-30); Chloride 102 mmol/L (98-107); Creatine Kinase 39 U/L (30-135); Glucose 140 mg/dL (74-99); Lipase 26 U/L (23-300); Non-African American GFR(CKD) >90 (>60 ml/min/1.73 sqM); Potassium 4.1 mmol/L (3.5-5.1); Sodium 136 mmol/L (137-145); Total Bilirubin 0.6 mg/dL (0.2-1.3); Total Protein 7.6 g/dL (6.3-8.2)
--- NOTE | 2020-03-02 22:45 | XR ---
EXAMINATION TYPE: XR chest 2V DATE OF EXAM: 03/02/2020 COMPARISON: 05/24/2019 HISTORY: Cough. Altered mental status. TECHNIQUE: 2 views FINDINGS: Heart and mediastinum are normal. Lungs are clear. Diaphragm is normal. Bony thorax appears normal. IMPRESSION: Normal chest. Inspiration decreased compared to old exam.
--- NOTE | 2020-03-02 22:55 | ED ---
General Adult HPI <Cheo Esteves - Last Filed: 03/03/20 03:37> - General Source: patient Mode of arrival: wheelchair Limitations: no limitations <Steph Aviles - Last Filed: 03/05/20 17:04> - General Chief complaint: Psychiatric Symptoms Stated complaint: Mental Health Time Seen by Provider: 03/02/20 21:35 - History of Present Illness Initial comments: Patient is a 24-year-old female with past history of schizoaffective disorder who is brought into the emergency room by her stepmom. Stepmom states that the patient lives in the basement. She normally keeps to herself. Reports that they had not seen her in several days but this is not abnormal for the patient. She is usually in charge of taking her medications. One of the friends contacted the patient's stepmom stating that they were concerned about the patient as they had not heard from her in a couple of days. Stepmom went to check on her and the patient was reportedly stating that she was "afraid". Reports that she has not been taking her medications. She's been having trouble sleeping. Patient denies having any suicidal thoughts however reports increased depression. The patient denies any falls. She has notable injection to the right eye which she states is secondary to "scratching it". The remainder of HPI is limited because of the patient's current condition (Steph Aviles) - Related Data Home Medications Medication Instructions Recorded Confirmed Mirtazapine 60 mg PO HS 06/21/19 03/02/20 OLANZapine 15 mg PO HS 06/21/19 03/02/20 Pregabalin 200 mg PO TID 06/21/19 03/02/20 Multivitamins, Thera [Multivitamin 1 tab PO DAILY 09/22/19 03/02/20 (formulary)] Omeprazole Magnesium [PriLOSEC OTC] 20 mg PO BID 09/22/19 03/02/20 ALPRAZolam [Xanax] 1 mg PO BID 03/02/20 03/02/20 Acetaminophen [Tylenol] 500 mg PO DAILY PRN 03/02/20 03/02/20 Atomoxetine HCl [Strattera] 40 mg PO DAILY 03/02/20 03/02/20 Benztropine Mesylate [Cogentin] 1 mg PO DAILY 03/02/20 03/02/20 Cimetidine 200 mg PO DAILY PRN 03/02/20 03/02/20 Docusate [Colace] 100 mg PO DAILY PRN 03/02/20 03/02/20 Meclizine HCl 25 mg PO Q6H PRN 03/02/20 03/02/20 Naproxen Sodium [Aleve] 220 mg PO DAILY PRN 03/02/20 03/02/20 OLANZapine ODT [ZyPREXA Zydis] 15 mg SUBLINGUAL HS 03/02/20 03/02/20 OXcarbazepine [Trileptal] 600 mg PO BID 03/02/20 03/02/20 Allergies Allergy/AdvReac Type Severity Reaction Status Date / Time No Known Allergies Allergy Verified 03/02/20 22:54 Review of Systems ROS Other: All systems not noted in ROS Statement are negative. <Cheo Esteves - Last Filed: 03/03/20 03:37> ROS Other: All systems not noted in ROS Statement are negative. <Steph Aviles - Last Filed: 03/05/20 17:04> ROS Statement: Those systems with pertinent positive or pertinent negative responses have been documented in the HPI. Past Medical History Past Medical History: Seizure Disorder Additional Past Medical History / Comment(s): agoraphobia, borderline, seizure disorder: last seizure was a "1 month ago." Polycystic ovary syndrome, chronic back spasms , autism does not use link. Sinus tachycardia, mass possible cancer patient unsure, wrist drop on the left History of Any Multi-Drug Resistant Organisms: None Reported Past Surgical History: Ear Surgery Additional Past Surgical History / Comment(s): Bilateral ear tube insertion as a young child. 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 Past Anesthesia/Blood Transfusion Reactions: No Reported Reaction Past Psychological History: Depression, PTSD, Schizoaffective Disorder Smoking Status: Current every day smoker, Vaper Past Alcohol Use History: Occasional Past Drug Use History: Marijuana, Prescription Drug Abuse - Past Family History Father Family Medical History: Hypertension Additional Family Medical History / Comment(s): Father is alive at age 50 with Testosterone deficiency Mother Additional Family Medical History / Comment(s): Mother is alive at age 48 with history of MPD, bipolar, depression. Brother(s) Additional Family Medical History / Comment(s): She has 4 brothers with no major medical problems. She does not have any sisters. She does not have any children. <Steph Aviles A - Last Filed: 03/05/20 17:04> General Exam General appearance: alert, in no apparent distress Head exam: Present: atraumatic, normocephalic, normal inspection Eye exam: Present: normal appearance, PERRL, EOMI. Absent: scleral icterus, conjunctival injection, periorbital swelling ENT exam: Present: normal exam, mucous membranes moist Neck exam: Present: normal inspection. Absent: tenderness, meningismus, lymphadenopathy Respiratory exam: Present: normal lung sounds bilaterally. Absent: respiratory distress, wheezes, rales, rhonchi, stridor Cardiovascular Exam: Present: regular rate, normal rhythm, normal heart sounds. Absent: systolic murmur, diastolic murmur, rubs, gallop, clicks GI/Abdominal exam: Present: soft, normal bowel sounds. Absent: distended, tenderness, guarding, rebound, rigid Extremities exam: Present: normal inspection, full ROM, normal capillary refill. Absent: tenderness, pedal edema, joint swelling, calf tenderness Back exam: Present: normal inspection Neurological exam: Present: alert, oriented X3, CN II-XII intact Psychiatric exam: Present: normal affect, normal mood Skin exam: Present: warm, dry, intact, normal color. Absent: rash <Cheo Esteves B - Last Filed: 03/03/20 03:37> Limitations: altered mental status General appearance: alert, in no apparent distress, anxious Head exam: Present: atraumatic, normocephalic Eye exam: Present: PERRL, EOMI, conjunctival injection (right eye) ENT exam: Present: mucous membranes dry Neck exam: Present: normal inspection. Absent: tenderness, meningismus, lymphadenopathy Respiratory exam: Present: normal lung sounds bilaterally. Absent: respiratory distress, wheezes, rales, rhonchi, stridor Cardiovascular Exam: Present: regular rate, tachycardia, normal heart sounds GI/Abdominal exam: Present: soft, normal bowel sounds. Absent: distended, tenderness, guarding, rebound, rigid Extremities exam: Present: other (well healed cuts visible to upper anterior forearms. Unshaven lower extremities. Hygeine appears poor) Back exam: Present: normal inspection Neurological exam: Present: alert, CN II-XII intact, other (oriented to self) Psychiatric exam: Present: anxious, flat affect <Steph Aviles - Last Filed: 03/05/20 17:04> Course <Cheo Esteves - Last Filed: 03/03/20 03:37> Vital Signs 03/02/20 03/02/20 03/03/20 21:35 23:52 00:00 Temperature 97.7 F 98.1 F 98.5 F Pulse Rate 114 H 94 102 H Respiratory 18 16 20 Rate Blood Pressure 121/90 120/65 146/81 O2 Sat by Pulse 100 97 97 Oximetry 03/03/20 02:00 Temperature Pulse Rate 78 Respiratory 18 Rate Blood Pressure 142/75 O2 Sat by Pulse 98 Oximetry - Reevaluation(s) Reevaluation #1: 03/03/20 03:37 Neck appeared for psychiatric evaluation (Cheo Esteves) EKG Findings - EKG Comments: EKG Findings:: EKG demonstrates a normal sinus rhythm with a ventricular rate of 98. MN interval 148. QRS 100. QTC of 449. No acute ST segment elevations or depressions <Steph Aviles - Last Filed: 03/05/20 17:04> Medical Decision Making - Lab Data Result diagrams: 03/02/20 22:26 03/02/20 22:26 <Cheo Esteves - Last Filed: 03/03/20 03:37> - Lab Data Result diagrams: 03/04/20 06:25 03/02/20 22:26 <Steph Aviles - Last Filed: 03/05/20 17:04> - Medical Decision Making 24 female seen in [facility] for psychiatry, patient was admitted to inpatient psychiatric evaluation and treatment (Cheo Esteves) Upon arrival patient was placed into room 12. A thorough history and physical exam was performed. Laboratory studies are performed. Patient was sent for CT of her brain to identify any pathologic cause for the patient's state. Patient has cathed for urine. Laboratory studies demonstrate that methamphetamine is detected. Alcohol is negative. Urinalysis is clean of infection. CT of the patient's brain demonstrates no acute findings. At this time the patient is medically cleared for EPS evaluation. We are currently awaiting the recommendations. Patient will be [facility] out [facility] Esteves [facility] - Lab Data Lab Results 03/02/20 03/02/20 03/02/20 Range/Units 22:20 22:20 22:26 WBC 12.5 H (3.8-10.6) k/uL RBC 5.28 (3.80-5.40) m/uL Hgb 15.1 (11.4-16.0) gm/dL Hct 44.0 (34.0-46.0) % MCV 83.4 (80.0-100.0) fL MCH 28.6 (25.0-35.0) pg MCHC 34.4 (31.0-37.0) g/dL RDW 14.3 (11.5-15.5) % Plt Count 313 (150-450) k/uL MPV 8.2 Neutrophils % 73 % Lymphocytes % 20 % Monocytes % 4 % Eosinophils % 1 % Basophils % 1 % Neutrophils # 9.1 H (1.3-7.7) k/uL Lymphocytes # 2.4 (1.0-4.8) k/uL Monocytes # 0.5 (0-1.0) k/uL Eosinophils # 0.2 (0-0.7) k/uL Basophils # 0.1 (0-0.2) k/uL PT (9.0-12.0) sec INR (<1.2) APTT (22.0-30.0) sec Sodium (137-145) mmol/L Potassium (3.5-5.1) mmol/L Chloride (98-107) mmol/L Carbon Dioxide (22-30) mmol/L Anion Gap mmol/L BUN (7-17) mg/dL Creatinine (0.52-1.04) mg/dL Est GFR (CKD-EPI)AfAm (>60 ml/min/1.73 sqM) Est GFR (CKD-EPI)NonAf (>60 ml/min/1.73 sqM) Glucose (74-99) mg/dL Calcium (8.4-10.2) mg/dL Total Bilirubin (0.2-1.3) mg/dL AST (14-36) U/L ALT (4-34) U/L Alkaline Phosphatase (38-126) U/L Creatine Kinase (30-135) U/L Troponin I (0.000-0.034) ng/mL Total Protein (6.3-8.2) g/dL Albumin (3.5-5.0) g/dL Lipase (23-300) U/L Urine Color Yellow Urine Appearance Clear (Clear) Urine pH 6.0 (5.0-8.0) Ur Specific [place] 1.036 H (1.001-1.035) Urine Protein 1+ H (Negative) Urine Glucose (UA) Negative (Negative) Urine Ketones 4+ H (Negative) Urine Blood Negative (Negative) Urine Nitrite Negative (Negative) Urine Bilirubin 1+ H (Negative) Urine Urobilinogen 4.0 (<2.0) mg/dL Ur Leukocyte Esterase Negative (Negative) Urine RBC 1 (0-5) /hpf Urine WBC 1 (0-5) /hpf Ur Squamous Epith Cells 2 (0-4) /hpf Urine Mucus Few H (None) /hpf Urine HCG, Qual Not Detected (Not Detectd) Urine Opiates Screen (NotDetected) Ur Oxycodone Screen (NotDetected) Urine Methadone Screen (NotDetected) Ur Propoxyphene Screen (NotDetected) Ur Barbiturates Screen (NotDetected) U Tricyclic Antidepress (NotDetected) Ur Phencyclidine Scrn (NotDetected) Ur Amphetamines Screen (NotDetected) U Methamphetamines Scrn (NotDetected) U Benzodiazepines Scrn (NotDetected) Urine Cocaine Screen (NotDetected) U Marijuana (THC) Screen (NotDetected) Serum Alcohol mg/dL Coronavirus (PCR) (Not Detectd) 03/02/20 03/02/20 03/02/20 Range/Units 22:26 22:26 22:26 WBC (3.8-10.6) k/uL RBC (3.80-5.40) m/uL Hgb (11.4-16.0) gm/dL Hct (34.0-46.0) % MCV (80.0-100.0) fL MCH (25.0-35.0) pg MCHC (31.0-37.0) g/dL RDW (11.5-15.5) % Plt Count (150-450) k/uL MPV Neutrophils % % Lymphocytes % % Monocytes % % Eosinophils % % Basophils % % Neutrophils # (1.3-7.7) k/uL Lymphocytes # (1.0-4.8) k/uL Monocytes # (0-1.0) k/uL Eosinophils # (0-0.7) k/uL Basophils # (0-0.2) k/uL PT 10.8 (9.0-12.0) sec INR 1.0 (<1.2) APTT 28.8 (22.0-30.0) sec Sodium 136 L (137-145) mmol/L Potassium 4.1 (3.5-5.1) mmol/L Chloride 102 (98-107) mmol/L Carbon Dioxide 24 (22-30) mmol/L Anion Gap 10 mmol/L BUN 16 (7-17) mg/dL Creatinine 0.54 (0.52-1.04) mg/dL Est GFR (CKD-EPI)AfAm >90 (>60 ml/min/1.73 sqM) Est GFR (CKD-EPI)NonAf >90 (>60 ml/min/1.73 sqM) Glucose 140 H (74-99) mg/dL Calcium 10.0 (8.4-10.2) mg/dL Total Bilirubin 0.6 (0.2-1.3) mg/dL AST 35 (14-36) U/L ALT 33 (4-34) U/L Alkaline Phosphatase 102 (38-126) U/L Creatine Kinase 39 (30-135) U/L Troponin I (0.000-0.034) ng/mL Total Protein 7.6 (6.3-8.2) g/dL Albumin 4.5 (3.5-5.0) g/dL Lipase 26 (23-300) U/L Urine Color Urine Appearance (Clear) Urine pH (5.0-8.0) Ur Specific [place] (1.001-1.035) Urine Protein (Negative) Urine Glucose (UA) (Negative) Urine Ketones (Negative) Urine Blood (Negative) Urine Nitrite (Negative) Urine Bilirubin (Negative) Urine Urobilinogen (<2.0) mg/dL Ur Leukocyte Esterase (Negative) Urine RBC (0-5) /hpf Urine WBC (0-5) /hpf Ur Squamous Epith Cells (0-4) /hpf Urine Mucus (None) /hpf Urine HCG, Qual (Not Detectd) Urine Opiates Screen Not Detected (NotDetected) Ur Oxycodone Screen Not Detected (NotDetected) Urine Methadone Screen Not Detected (NotDetected) Ur Propoxyphene Screen Not Detected (NotDetected) Ur Barbiturates Screen Not Detected (NotDetected) U Tricyclic Antidepress Not Detected (NotDetected) Ur Phencyclidine Scrn Not Detected (NotDetected) Ur Amphetamines Screen Not Detected (NotDetected) U Methamphetamines Scrn Detected H (NotDetected) U Benzodiazepines Scrn Not Detected (NotDetected) Urine Cocaine Screen Not Detected (NotDetected) U Marijuana (THC) Screen Not Detected (NotDetected) Serum Alcohol mg/dL Coronavirus (PCR) (Not Detectd) 03/02/20 03/02/20 03/03/20 Range/Units 22:26 22:30 03:05 WBC (3.8-10.6) k/uL RBC (3.80-5.40) m/uL Hgb (11.4-16.0) gm/dL Hct (34.0-46.0) % MCV (80.0-100.0) fL MCH (25.0-35.0) pg MCHC (31.0-37.0) g/dL RDW (11.5-15.5) % Plt Count (150-450) k/uL MPV Neutrophils % % Lymphocytes % % Monocytes % % Eosinophils % % Basophils % % Neutrophils # (1.3-7.7) k/uL Lymphocytes # (1.0-4.8) k/uL Monocytes # (0-1.0) k/uL Eosinophils # (0-0.7) k/uL Basophils # (0-0.2) k/uL PT (9.0-12.0) sec INR (<1.2) APTT (22.0-30.0) sec Sodium (137-145) mmol/L Potassium (3.5-5.1) mmol/L Chloride (98-107) mmol/L Carbon Dioxide (22-30) mmol/L Anion Gap mmol/L BUN (7-17) mg/dL Creatinine (0.52-1.04) mg/dL Est GFR (CKD-EPI)AfAm (>60 ml/min/1.73 sqM) Est GFR (CKD-EPI)NonAf (>60 ml/min/1.73 sqM) Glucose (74-99) mg/dL Calcium (8.4-10.2) mg/dL Total Bilirubin (0.2-1.3) mg/dL AST (14-36) U/L ALT (4-34) U/L Alkaline Phosphatase (38-126) U/L Creatine Kinase (30-135) U/L Troponin I <0.012 (0.000-0.034) ng/mL Total Protein (6.3-8.2) g/dL Albumin (3.5-5.0) g/dL Lipase (23-300) U/L Urine Color Urine Appearance (Clear) Urine pH (5.0-8.0) Ur Specific [place] (1.001-1.035) Urine Protein (Negative) Urine Glucose (UA) (Negative) Urine Ketones (Negative) Urine Blood (Negative) Urine Nitrite (Negative) Urine Bilirubin (Negative) Urine Urobilinogen (<2.0) mg/dL Ur Leukocyte Esterase (Negative) Urine RBC (0-5) /hpf Urine WBC (0-5) /hpf Ur Squamous Epith Cells (0-4) /hpf Urine Mucus (None) /hpf Urine HCG, Qual (Not Detectd) Urine Opiates Screen (NotDetected) Ur Oxycodone Screen (NotDetected) Urine Methadone Screen (NotDetected) Ur Propoxyphene Screen (NotDetected) Ur Barbiturates Screen (NotDetected) U Tricyclic Antidepress (NotDetected) Ur Phencyclidine Scrn (NotDetected) Ur Amphetamines Screen (NotDetected) U Methamphetamines Scrn (NotDetected) U Benzodiazepines Scrn (NotDetected) Urine Cocaine Screen (NotDetected) U Marijuana (THC) Screen (NotDetected) Serum Alcohol <10 mg/dL Coronavirus (PCR) Not Detected (Not Detectd) Disposition Is patient prescribed a controlled substance at d/c from ED?: No <Cheo Esteves - Last Filed: 03/03/20 03:37> <Steph Aviles A - Last Filed: 03/05/20 17:04> Clinical Impression: Depression, Schizophrenia, Acute psychosis Disposition: TRANSFER TO PSYCH HOSP/UNIT Condition: Fair
--- NOTE | 2020-03-02 23:03 | CT ---
EXAMINATION TYPE: CT brain wo con DATE OF EXAM: 03/02/2020 COMPARISON: 06/21/2019 HISTORY: ams CT DLP: 1158.4 mGycm Automated exposure control for dose reduction was used. Images obtained of the brain without contrast. Ventricles and sulci appear normal. There is no mass effect nor midline shift. There is no sign of in tracranial hemorrhage. Calvarium is intact. There is no evidence of cerebral edema. Skull base is int act. There is normal aeration of the mastoid sinuses. IMPRESSION: Negative CT scan of the brain. No change.
[2020-03-02 23:06] LABS: Partial Thromboplastin Time 28.8 sec (22.0-30.0); Prothrombin Time 10.8 sec (9.0-12.0)
[2020-03-02 23:26] LABS: Appearance,Urine Clear (Clear); Bilirubin,Urine 1+ (Negative); Blood,Urine Negative (Negative); Color,Urine Yellow; Glucose,Urine (UA) Negative (Negative); Ketones,Urine 4+ (Negative); Leukocyte Esterase,Urine Negative (Negative); Mucus,Urine Few /hpf; Nitrite,Urine Negative (Negative); Protein,Urine 1+ (Negative); RBC,Urine 1 /hpf (0-5); Specific Gravity,Urine 1.036 (1.001-1.035); Squamous Epithelial Cell,Urine 2 /hpf (0-4); WBC,Urine 1 /hpf (0-5)
[2020-03-02 23:38] LABS: Amphetamine Screen,Urine Not Detected (NotDetected); Barbiturate Screen,Urine Not Detected (NotDetected); Benzodiazepines Screen,Urine Not Detected (NotDetected); Cocaine Screen,Urine Not Detected (NotDetected); Methadone Screen, Urine Not Detected (NotDetected); Opiate Screen,Urine Not Detected (NotDetected); Oxycodone Screen, Urine Not Detected (NotDetected); Phencyclidine Screen,Urine Not Detected (NotDetected); Tricyclic Antidepressant,Urine Not Detected (NotDetected); Urn Cannabinoid Scrn Not Detected (NotDetected)
[2020-03-03] MEDS ORDERED: LORazepam 1 MG TAB PO PRN (04:17)
[2020-03-03] MEDS ORDERED: LORazepam 2 MG/ML INJ IM PRN (04:17)
[2020-03-03] MEDS ORDERED: ACETAMINOPHEN TAB 325 MG TAB PO PRN (04:20)
[2020-03-03] MEDS ORDERED: MAGNESIUM HYDROXIDE 2,400 MG/10 ML CUP PO PRN (04:20)
[2020-03-03] MEDS ORDERED: MAG HYDROX/AL HYDROX/SIMETH 30 ML CUP PO PRN (04:20)
[2020-03-03] MEDS ORDERED: HALOPERIDOL LACTATE 5 MG/ML 1 ML VIAL IM PRN (04:20)
[2020-03-03] MEDS: OXcarbazepine 300 MG TAB PO SCH ×2 (09:13→21:42)
[2020-03-03] MEDS: NICOTINE 14MG/24HR PATCH TRANSDERM SCH (09:13)
[2020-03-03] MEDS: haloperidoL 5 MG TAB PO PRN (09:15)
--- NOTE | 2020-03-03 10:48 | P.CONS ---
History of Present Illness - Reason for Consult Consult date: 03/03/20 tachycardia history - History of Present Illness This is a 24-year-old white female patient of my practice. She has a history of schizoaffective disorder. He was brought in the emergency room last night by her mother. She stays in her basement. Apparently she not been seen in several days. She was found in the basement [place] stating "I'm afraid". She brought in the emergency room and admitted for this. She had no suicidal ideations according to the ER staff. She is barely able to speak to me today is also q uite anxious. She has an unspecified history of tachycardia. Her heart rate and initial evaluation was 114. It is since become normal. EKG reviewed from the emergency room shows normal sinus rhythm with a heart rate of approximately 98. No significant arrhythmias noted. Urine drug screen show methamphetamine. Her urine was positive for ketones. She has a slight leukocytosis with a white cou nt of 12.5 with a left shift. Glucose is elevated at 140, unknown if it was a fasting specimen. Review of Systems ROS unobtainable: due to mental status Past Medical History Past Medical History: Seizure Disorder Additional Past Medical History / Comment(s): agoraphobia, borderline, seizure disorder: last seizure was a "1 month ago." Polycystic ovary syndrome, chronic back spasms , autism does not use link. Sinus tachycardia, mass possible cancer patient unsure, wrist drop on the left History of Any Multi-Drug Resistant Organisms: None Reported Past Surgical History: Ear Surgery Additional Past Surgical History / Comment(s): Bilateral ear tube insertion as a young child. 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 Past Anesthesia/Blood Transfusion Reactions: No Reported Reaction Past Psychological History: Depression, PTSD, Schizoaffective Disorder Smoking Status: Current every day smoker, Vaper Past Alcohol Use History: Occasional Past Drug Use History: Marijuana, Prescription Drug Abuse - Past Family History Father Family Medical History: Hypertension Additional Family Medical History / Comment(s): Father is alive at age 50 with Testosterone deficiency Mother Additional Family Medical History / Comment(s): Mother is alive at age 48 with history of MPD, bipolar, depression. Brother(s) Additional Family Medical History / Comment(s): She has 4 brothers with no major medical problems. She does not have any sisters. She does not have any children. Medications and Allergies Home Medications Medication Instructions Recorded Confirmed Type Mirtazapine 60 mg PO HS 06/21/19 03/02/20 History OLANZapine 15 mg PO HS 06/21/19 03/02/20 History Pregabalin 200 mg PO TID 06/21/19 03/02/20 History Multivitamins, Thera [Multivitamin 1 tab PO DAILY 09/22/19 03/02/20 History (formulary)] Omeprazole Magnesium [PriLOSEC OTC] 20 mg PO BID 09/22/19 03/02/20 History ALPRAZolam [Xanax] 1 mg PO BID 03/02/20 03/02/20 History Acetaminophen [Tylenol] 500 mg PO DAILY PRN 03/02/20 03/02/20 History Atomoxetine HCl [Strattera] 40 mg PO DAILY 03/02/20 03/02/20 History Benztropine Mesylate [Cogentin] 1 mg PO DAILY 03/02/20 03/02/20 History Cimetidine 200 mg PO DAILY PRN 03/02/20 03/02/20 History Docusate [Colace] 100 mg PO DAILY PRN 03/02/20 03/02/20 History Meclizine HCl 25 mg PO Q6H PRN 03/02/20 03/02/20 History Naproxen Sodium [Aleve] 220 mg PO DAILY PRN 03/02/20 03/02/20 History OLANZapine ODT [ZyPREXA Zydis] 15 mg SUBLINGUAL HS 03/02/20 03/02/20 History OXcarbazepine [Trileptal] 600 mg PO BID 03/02/20 03/02/20 History Allergies Allergy/AdvReac Type Severity Reaction Status Date / Time No Known Allergies Allergy Verified 03/02/20 22:54 Physical Exam Vitals: Vital Signs Temp Pulse Pulse Resp BP BP Pulse Ox 03/03/20 04:50 97.5 F L 139 H 20 127/79 03/03/20 02:00 78 18 142/75 98 03/03/20 00:00 98.5 F 102 H 20 146/81 97 03/02/20 23:52 98.1 F 94 16 120/65 97 03/02/20 21:35 97.7 F 114 H 18 121/90 100 Intake and Output 03/02/20 03/03/20 03/03/20 22:59 06:59 14:59 Other: Weight 95.617 kg GENERAL: Somewhat obese white female who is very anxious and clutching her hands and fists. HEAD: Atraumatic, normocephalic. EYES: Untested ENT:nares patent, oropharynx clear without exudates. Moist mucous membranes. NECK: Normal range of motion, supple without lymphadenopathy or JVD, no thyromegaly LUNGS: Breath sounds clear to auscultation bilaterally and equal. No wheezes rales or rhonchi. HEART: Regular rate and rhythm without murmurs, rubs or gallops.S1S2 Normal ABDOMEN: Soft, nontender, normoactive bowel sounds. No guarding, no rebound. No masses appreciated. EXTREMITIES: Normal range of motion, no pitting or edema. No clubbing or cyanosis. NEUROLOGICAL: Cranial nerves II through XII grossly intact. Minimal speech , normal gait. PSYCH: Flat affect, anxious, minimally verbal SKIN: Warm, Dry, normal turgor, no rashes or lesions noted. Results CBC & Chem 7: 03/02/20 22:26 03/02/20 22:26 Labs: Abnormal Lab Results - Last 24 Hours (Table) 03/02/20 03/02/20 03/02/20 Range/Units 22:20 22:26 22:26 WBC 12.5 H (3.8-10.6) k/uL Neutrophils # 9.1 H (1.3-7.7) k/uL Sodium (137-145) mmol/L Glucose (74-99) mg/dL Ur Specific [place] 1.036 H (1.001-1.035) Urine Protein 1+ H (Negative) Urine Ketones 4+ H (Negative) Urine Bilirubin 1+ H (Negative) Urine Mucus Few H (None) /hpf U Methamphetamines Scrn Detected H (NotDetected) 03/02/20 Range/Units 22:26 WBC (3.8-10.6) k/uL Neutrophils # (1.3-7.7) k/uL Sodium 136 L (137-145) mmol/L Glucose 140 H (74-99) mg/dL Ur Specific [place] (1.001-1.035) Urine Protein (Negative) Urine Ketones (Negative) Urine Bilirubin (Negative) Urine Mucus (None) /hpf U Methamphetamines Scrn (NotDetected) Chest x-ray: report reviewed CT Scan - head: report reviewed Assessment and Plan (1) Sinus tachycardia Current Visit: Yes Status: Acute Code(s): R00.0 - TACHYCARDIA, UNSPECIFIED SNOMED Code(s): 44925378 (2) Acute psychosis Current Visit: Yes Status: Acute Code(s): F23 - BRIEF PSYCHOTIC DISORDER SNOMED Code(s): 86124715 (3) Depression Current Visit: Yes Status: Acute Code(s): F32.9 - MAJOR DEPRESSIVE DISORDER, SINGLE EPISODE, UNSPECIFIED SNOMED Code(s): 80639151 (4) Schizophrenia Current Visit: Yes Status: Acute Code(s): F20.9 - SCHIZOPHRENIA, UNSPECIFIED SNOMED Code(s): 84845170 (5) Leukocytosis, unspecified Current Visit: Yes Status: Acute Code(s): D72.829 - ELEVATED WHITE BLOOD CELL COUNT, UNSPECIFIED SNOMED Code(s): 835346349 (6) Stimulant abuse Current Visit: Yes Status: Acute Code(s): F15.10 - OTHER STIMULANT ABUSE, UNCOMPLICATED SNOMED Code(s): 508515464 (7) Elevated glucose Current Visit: Yes Status: Acute Code(s): R73.09 - OTHER ABNORMAL GLUCOSE SNOMED Code(s): 64717897 Plan: I will repeat her diabetes count for tomorrow. We'll check a hemoglobin A1c. Her sinus tachycardia seems to be ongoing. Other labs are currently pending. Thank you for allowing up to speed in her care.
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
[2020-03-03] MEDS: hydrOXYzine pamoate 25 MG CAP PO PRN (12:20)
[2020-03-03] MEDS: cloNIDine HCL 0.1 MG TAB PO SCH (21:42)
[2020-03-03] MEDS: hydrOXYzine pamoate 25 MG CAP PO SCH (21:42)
[2020-03-03] MEDS: ARTIFICIAL TEARS-HYPROMELLOSE DROPS 15 ML BTL RIGHT EYE PRN (22:31)
[2020-03-04] MEDS: haloperidoL 5 MG TAB PO PRN (06:37)
[2020-03-04 06:45] LABS: Basophils # (A) 0.1 k/uL (0-0.2); Basophils % (A) 1 %; Eosinophils # (A) 0.1 k/uL (0-0.7); Eosinophils % (A) 1 %; HCT 45.5 % (34.0-46.0); HGB 14.9 gm/dL (11.4-16.0); Lymphocytes # (A) 4.1 k/uL (1.0-4.8); Lymphocytes % (A) 34 %; MCH 28.1 pg (25.0-35.0); MCHC 32.8 g/dL (31.0-37.0); MCV 85.8 fL (80.0-100.0); Mean Platelet Volume 8.8; Monocytes # (A) 0.6 k/uL (0-1.0); Monocytes % (A) 5 %; Neutrophils # (A) 6.7 k/uL (1.3-7.7); Neutrophils % (A) 57 %; Platelet Count 276 k/uL (150-450); RDW 14.7 % (11.5-15.5); WBC 11.9 k/uL (3.8-10.6)
[2020-03-04 06:54] LABS: Albumin 4.4 g/dL (3.5-5.0); Bilirubin, Delta 0.3 mg/dL (0.0-0.2); Bilirubin,Unconjugated 0.3 mg/dL (0.0-1.1); Total Bilirubin 0.6 mg/dL (0.2-1.3); Total Protein 7.3 g/dL (6.3-8.2)
[2020-03-04] MEDS: OXcarbazepine 300 MG TAB PO SCH ×2 (08:49→22:32)
[2020-03-04] MEDS: cloNIDine HCL 0.1 MG TAB PO SCH ×2 (08:49→22:33)
[2020-03-04] MEDS: NICOTINE 14MG/24HR PATCH TRANSDERM SCH (08:49)
[2020-03-04] MEDS: NICOTINE POLACRILEX 2 MG GUM BUCCAL PRN ×2 (08:50→13:16)
[2020-03-04] MEDS ORDERED: BENZTROPINE 2 MG/2 ML AMP IM STA (09:54)
--- NOTE | 2020-03-04 10:12 | P.PN ---
Progress Note - Text Progress Note Date: 03/04/20 Interval History: Patient was seen wandering the hallways and was directable and agreeable to speak with marketing copywriter in her room. The patient is expressing that she has been experiencing significant "EPS" symptoms since starting Haldol. She reports that she receives these symptoms with every antipsychotic that she takes. She expresses that she is unable to roll her eyes forward as her eyes are stuck rolled backwards because of the medication. She also expresses significant tremors and involuntary movements around her body. This provider asked her to sit down and examined her and performed and AIMS test. During the testing, the patient was able to stop or involuntary movements, she was also able to bring her head forward and there is no signs of any rigidity present. The patient continues to express that she needs Cogentin in order to function. Of note, the patient did receive the Haldol last night and there has been no documented incident of these abnormal movements. The patient continues to express chronic suicidal ideation. She is not reporting any hallucinations or delusions at this time. She has been adherent with her medications. Mental Status Exam: General Appearance: Patient appears to be stated age is alert, directable, and attempts to cooperate. Patient appears to have poor hygiene and grooming. Very disheveled, obese body habitus, superficial cuts on her left wrist. Behavior: Patient is presenting with her head tilted backwards in her eyes looking upwards. When directed to, the patient is able to stop doing so. She also is presenting with involuntary movements of her upper extremities which have also stopped when directed to do so. Psychomotor activity appears elevated. Speech: Patient's speech is fluent and nonpressured. Mood/Affect: Patient reports their mood is upset and nervous. Affect is anxious and expansive. Suicidality/Homicidality: Patient denies any current suicidal or homicidal ideation, intention, and/or plan. Perceptions: Patient is denying any current auditory or visual hallucinations. Though content/process: Illogical, med seeking. Memory and concentration: AOX3, grossly intact for the purposes of this session. Can spell "WORLD" backwards Judgment and insight: Very poor Assessment Schizoaffective disorder, depressed type Methamphetamine abuse Nicotine dependence Anxiety disorder, unspecified Cluster B personality traits Plan: -Patient continues to meet criteria for inpatient psychiatric admission for symptom stabilization and safety. -Medications: -Patient is med seeking, and a significant history of substance use disorders. We will substitute Vistaril for Ativan. Continue Haldol 2 mg by mouth twice a day for psychosis. The patient will be transitioned to Haldol Decanoate due to history of nonadherence to treatment and multiple trials of antipsychotic medications. We will gradually titrate her Haldol over the weekend. We will start Cogentin 1 mg by mouth twice a day for proposed EPS symptoms Continue Trileptal 600 mg by mouth twice a day Continue Vistaril 50 mg by mouth at bedtime -When necessary Haldol for agitation/aggression. -NRT - nicotine patch -SW on board for discharge planning. Encouraged the patient to participate in milieu.
[2020-03-04] MEDS: ARTIFICIAL TEARS-HYPROMELLOSE DROPS 15 ML BTL RIGHT EYE PRN (13:16)
[2020-03-04 13:38] LABS: Hemoglobin A1C 5.4 % (4.0-6.0)
[2020-03-04] MEDS: hydrOXYzine pamoate 25 MG CAP PO PRN (15:11)
[2020-03-04] MEDS: hydrOXYzine pamoate 25 MG CAP PO SCH (22:32)
[2020-03-04] MEDS: BENZTROPINE MESYLATE 1 MG TAB PO SCH (22:32)
[2020-03-05] MEDS: BENZTROPINE MESYLATE 1 MG TAB PO SCH ×2 (08:16→20:59)
[2020-03-05] MEDS: cloNIDine HCL 0.1 MG TAB PO SCH ×2 (08:16→21:00)
[2020-03-05] MEDS: ARTIFICIAL TEARS-HYPROMELLOSE DROPS 15 ML BTL RIGHT EYE PRN (08:16)
[2020-03-05] MEDS: OXcarbazepine 300 MG TAB PO SCH ×2 (08:16→21:00)
[2020-03-05] MEDS: NICOTINE POLACRILEX 2 MG GUM BUCCAL PRN ×2 (08:19→13:25)
[2020-03-05] MEDS: NICOTINE 14MG/24HR PATCH TRANSDERM SCH (08:24)
[2020-03-05] MEDS ORDERED: cloNIDine HCL 0.1 MG TAB PO STA (10:04)
--- NOTE | 2020-03-05 14:41 | P.PN ---
Progress Note - Text Progress Note Date: 03/05/20 Clinical Problems: Schizoaffective depressed type, methamphetamine use disorder, tobacco use, seizure disorder, cluster B personality traits Interim history: I reviewed the medical record and interviewed the patient. She is a 24-year-old female admitted involuntarily to the unit with a symptoms of psychosis characterized by paranoia, hallucinations and disorganized speech. The psychotic symptoms appeared to have developed when she relapsed to methamphetamine. Her only concern was discharge. I explained that she was admitted to unit involuntarily. She has a history of a seizure disorder for which she is prescribed Trileptal 600 mg twice a day. She denied side effects to her medications. Specifically, she did not complain of side effects to Haldol and did not demonstrate signs suggestive of EPS. She denied feeling depressed or having or suicide. She did not request prescriptions for psychostimulants. She is compliant with the current dose of Haldol and requests Vistaril when necessary for planes subjective anxiety. He does not attend therapeutic groups and activities. She slept 6 hours last night. Mental status exam: She presented as disheveled 24-year-old female who was pleasant on approach. She made eye contact and appeared to attend to interview. She no prominent physical abnormalities. She had a blunted facial expression. She was alert and oriented to person, place and time. She showed no abnormality of psychomotor activity. She is not restless or agitated. She showed no abnormal involuntary movements. Her speech was not spontaneous and had decreased rate and rhythm. Affect was blunted but appropriate. She denied suicidal ideation or wishes. He denied feeling hopeless, helpless or worthless. She ruminated about discharge. She denied express ideas reference or clear paranoid ideation. Her thinking was concrete but her associations were logical and goal directed. She denied hallucinations and did not appear to responding to internal stimuli. Assessment: She has missed less agitated and disorganized and of admission. Plan: Continue with inpatient treatment. Proceed with involuntary hospitalization. Continue Haldol 2 mg twice a day and titrated according to clinical response and tolerance. Continue Cogentin 1 mg twice a day for complaints of EPS and Vistaril 25 mg every 6 hours when necessary for anxiety and 50 mg at bedtime for sleep. Trileptal 600 mg by mouth twice a day with treatment of mood and seizure disorder. Encourage participation in therapeutic groups and activities. Evaluate clinical status response to treatment daily basis.
[2020-03-05] MEDS: hydrOXYzine pamoate 25 MG CAP PO PRN (16:39)
[2020-03-05] MEDS: hydrOXYzine pamoate 25 MG CAP PO SCH (21:00)
[2020-03-06] MEDS: haloperidoL 5 MG TAB PO SCH ×3 (00:18→21:09)
[2020-03-06] MEDS: OXcarbazepine 300 MG TAB PO SCH ×2 (07:51→21:09)
[2020-03-06] MEDS: BENZTROPINE MESYLATE 1 MG TAB PO SCH ×2 (07:51→21:09)
[2020-03-06] MEDS: NICOTINE POLACRILEX 2 MG GUM BUCCAL PRN ×3 (07:51→19:04)
[2020-03-06] MEDS: cloNIDine HCL 0.1 MG TAB PO SCH ×2 (07:52→21:09)
[2020-03-06] MEDS: NICOTINE 14MG/24HR PATCH TRANSDERM SCH (08:18)
--- NOTE | 2020-03-06 12:04 | P.PN ---
Progress Note - Text Progress Note Date: 03/06/20 Clinical Problems: Schizoaffective depressed type, methamphetamine use disorder, tobacco use, seizure disorder, cluster B personality traits Interim history: I reviewed the medical record and interviewed the patient. She complained of poor sleep. She feels that her sleep is improved since she restarted she is started taking Haldol but does not feel her sleep is normal was ". She described difficulty falling asleep and frequent awakenings. She denied feeling frightened or scared. She did not express paranoid ideation or police. She denied experiencing auditory hallucinations. She slept 7 hours last night and attended one therapeutic groups yesterday. He requested when necessary Vistaril for complaints of subjective anxiety. Mental status exam: She presented as disheveled 24-year-old female who was pleasant on approach. She made eye contact and appeared to attend to interview. She no prominent physical abnormalities. She had a blunted facial expression. She was alert and oriented to person, place and time. She had psychomotor slowing. She is not restless or agitated. She showed no abnormal involuntary movements. Her speech was spontaneous and had decreased rate and rhythm. Affect was blunted but appropriate. She denied suicidal ideation or wishes. He denied feeling hopeless, helpless or worthless. She ruminated about discharge. She denied express ideas reference or clear paranoid ideation. Her thinking was concrete but her associations were logical and goal directed. She denied hallucinations and did not appear to responding to internal stimuli. Assessment: She has missed less agitated and disorganized and of admission. Plan: Continue with inpatient treatment. Proceed with involuntary hospitalization. Continue Haldol 2.5 mg twice a day and titrated according to clinical response and tolerance. Continue Cogentin 1 mg twice a day for complaints of EPS and Vistaril 25 mg every 6 hours when necessary for anxiety and 50 mg at bedtime for sleep. Trileptal 600 mg by mouth twice a day with treatment of mood and seizure disorder. Encourage participation in therapeutic groups and activities. Evaluate clinical status response to treatment daily basis.
[2020-03-06] MEDS: hydrOXYzine pamoate 25 MG CAP PO SCH (21:10)
[2020-03-07] MEDS: BENZTROPINE MESYLATE 1 MG TAB PO SCH ×2 (08:20→20:28)
[2020-03-07] MEDS: cloNIDine HCL 0.1 MG TAB PO SCH (08:20)
[2020-03-07] MEDS: haloperidoL 5 MG TAB PO SCH (08:20)
[2020-03-07] MEDS: OXcarbazepine 300 MG TAB PO SCH ×2 (08:20→20:29)
--- NOTE | 2020-03-07 10:05 | P.PN ---
Progress Note - Text Progress Note Date: 03/07/20 Interval History: Patient was seen wandering the hallways and was directable and agreeable to speak with the television script writer in the office. Patient expresses that she is feeling better today. She is reporting that her head is clear. She is not reporting any suicidal or homicidal ideation, intention, and/or plan. She is currently not reporting any auditory or visual hallucinations. She is not reporting any paranoia or other delusions at this time. She states that she has been feeling increasingly restless and unable to sit or lie still. She reports that this has been affecting her sleep. She is otherwise not reporting any significant side effects or medications and reports that the addition of Cogentin has been beneficial and she has been tolerating her Haldol well. She has been adherent with her medications. Mental Status Exam: General Appearance: Patient appears to be stated age is alert, directable, and attempts to cooperate. Patient appears to have poor hygiene and grooming. Very disheveled, obese body habitus, superficial cuts on her left wrist. Behavior: Psychomotor activity appears slightly elevated but otherwise the patient is calmly seated with no agitation. Speech: Patient's speech is fluent and nonpressured. Mood/Affect: Patient reports their mood is doing fine Affect is constricted and euthymic. Suicidality/Homicidality: Patient denies any current suicidal or homicidal ideation, intention, and/or plan. Perceptions: Patient is denying any current auditory or visual hallucinations. Though content/process: Linear and logical in short conversation. Continues to be somewhat medication seeking. Memory and concentration: AOX3, grossly intact for the purposes of this session. Can spell "WORLD" backwards Judgment and insight: Mildly improving Assessment Schizoaffective disorder, depressed type Methamphetamine abuse Nicotine dependence Anxiety disorder, unspecified Cluster B personality traits Plan: -Patient continues to meet criteria for inpatient psychiatric admission for symptom stabilization and safety. -Medications: -Patient is med seeking, and a significant history of substance use disorders. Use Vistaril as needed for anxiety and no Ativan. Haldol and be increased to 3 mg by mouth twice a day with plans to transition the patient to Haldol Decanoate due to history of nonadherence with treatment. Increase Catapres to 0.2 mg by mouth twice a day. Continue Cogentin 1 mg by mouth twice a day for proposed EPS symptoms Continue Trileptal 600 mg by mouth twice a day Continue Vistaril 50 mg by mouth at bedtime -When necessary Haldol for agitation/aggression. -NRT - nicotine patch -SW on board for discharge planning. Encouraged the patient to participate in milieu.
[2020-03-07] MEDS: NICOTINE POLACRILEX 2 MG GUM BUCCAL PRN ×2 (13:20→18:58)
[2020-03-07] MEDS: cloNIDine HCL 0.2 MG TAB PO SCH (20:28)
[2020-03-07] MEDS: hydrOXYzine pamoate 25 MG CAP PO SCH (20:29)
[2020-03-07] MEDS: haloperidoL 1 MG TAB PO SCH (20:29)
[2020-03-08] MEDS: cloNIDine HCL 0.2 MG TAB PO SCH ×2 (08:17→20:55)
[2020-03-08] MEDS: BENZTROPINE MESYLATE 1 MG TAB PO SCH ×2 (08:18→20:55)
[2020-03-08] MEDS: OXcarbazepine 300 MG TAB PO SCH ×2 (08:18→20:56)
[2020-03-08] MEDS: haloperidoL 1 MG TAB PO SCH ×2 (08:18→20:55)
[2020-03-08] MEDS ORDERED: HALOPERIDOL DECANOATE 50 MG/ML 1 ML VIAL IM STA (09:31)
--- NOTE | 2020-03-08 09:59 | P.PN ---
Progress Note - Text Progress Note Date: 03/08/20 Interval History: Patient was seen resting in her room and was agreeable to speak with marketing copywriter in the office. Patient is currently expressing significant improvement in mood and psychotic symptoms. She is not reporting any suicidal or homicidal ideation, intention, and/or plan. She is currently not reporting any auditory or visual hallucinations. She denies any paranoia or delusions. She has been adherent with her medications and is not reporting any significant side effects at this time. Stress at length medication adherence. The patient did defer yesterday and was informed that is part of deferral, that she would agree with treatment and prescribed medications. The patient was informed that she will be receiving Haldol Decanoate today due to her history of not intensive treatment. The patient expects his understanding. Mental Status Exam: General Appearance: Patient appears to be stated age is alert, directable, and attempts to cooperate. Patient appears to have poor hygiene and grooming. Improved hygiene, obese body habitus, superficial cuts on her left wrist. Behavior: Psychomotor activity appears normal and the patient is calmly seated with no agitation. Speech: Patient's speech is fluent and nonpressured. Mood/Affect: Patient reports their mood is much better Affect is constricted and euthymic. Suicidality/Homicidality: Patient denies any current suicidal or homicidal ideation, intention, and/or plan. Perceptions: Patient is denying any current auditory or visual hallucinations. Though content/process: Linear and logical in short conversation. Continues to be somewhat medication seeking. Memory and concentration: AOX3, grossly intact for the purposes of this session. Can spell "WORLD" backwards Judgment and insight: Mildly improving Assessment Schizoaffective disorder, depressed type Methamphetamine abuse Nicotine dependence Anxiety disorder, unspecified Cluster B personality traits Plan: -Patient continues to meet criteria for inpatient psychiatric admission for symptom stabilization and safety. Patient deferred court yesterday. -Medications: -Patient is med seeking, and a significant history of substance use disorders. Use Vistaril as needed for anxiety and no Ativan. We will administer 50 mg IM of Haldol Decanoate today. The patient will receive the medication every 28 days. Continue Catapres 0.2 mg by mouth twice a day. Continue Cogentin 1 mg by mouth twice a day for proposed EPS symptoms Continue Trileptal 600 mg by mouth twice a day Continue Vistaril 50 mg by mouth at bedtime -When necessary Haldol for agitation/aggression. -NRT - nicotine patch -SW on board for discharge planning. Encouraged the patient to participate in milieu. -Anticipate discharge tomorrow.
[2020-03-08] MEDS: NICOTINE POLACRILEX 2 MG GUM BUCCAL PRN ×2 (17:00→20:56)
[2020-03-08] MEDS: hydrOXYzine pamoate 25 MG CAP PO SCH (20:55)
[2020-03-09 06:48] VITALS: TEMP 97.3
[2020-03-09] MEDS: OXcarbazepine 300 MG TAB PO SCH (08:25)
[2020-03-09] MEDS: BENZTROPINE MESYLATE 1 MG TAB PO SCH (08:25)
[2020-03-09] MEDS: haloperidoL 1 MG TAB PO SCH (08:25)
[2020-03-09] MEDS: cloNIDine HCL 0.2 MG TAB PO SCH (08:26)
[2020-03-09 08:38] VITALS: BP 122/64; PULSE 127; RESP 16
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
== END 2020-03-09 14:14 | disposition home or self-care (01) | DRG 885 ==
LOC: EC 21:34 → 3MHU 03-03 03:57
PROVIDERS: ADMIT Psychiatry & Neurology Psychiatry; ATTEND Psychiatry & Neurology Psychiatry
DX: F25.1 Schizoaffective disorder, depressive type (principal); F15.10 Other stimulant abuse, uncomplicated; D72.829 Elevated white blood cell count, unspecified; F12.10 Cannabis abuse, uncomplicated; F17.200 Nicotine dependence, unspecified, uncomplicated; F31.9 Bipolar disorder, unspecified; F40.00 Agoraphobia, unspecified; F43.10 Post-traumatic stress disorder, unspecified; F84.0 Autistic disorder; G40.909 Epilepsy, unspecified, not intractable, without status epilepticus; Z79.899 Other long term (current) drug therapy; Z81.8 Family history of other mental and behavioral disorders; Z82.49 Family history of ischemic heart disease and other diseases of the circulatory system; Z91.14 Patient's other noncompliance with medication regimen; G47.9 Sleep disorder, unspecified
CPT/HCPCS: 36415; 70450; 71046; 80053; 80061; 80076; 80306; 80320; 81001; 81025; 82550; 83036; 83690; 84443; 84484; 85025; 85610; 85730; 87635; 93005; 99285

== ENCOUNTER 2020-05-23 20:46 | Emergency (ER) | payer OTHER ==
[2020-05-23 20:54] VITALS: RESP 18; TEMP 99.5
[2020-05-23] MEDS ORDERED: SODIUM CHLORIDE 0.9% 1,000 ML IV ONE (21:43)
[2020-05-23] MEDS ORDERED: MORPHINE SULFATE 4 MG/ML SYRINGE IVP PRN (21:43)
--- NOTE | 2020-05-23 22:21 | ED ---
Abdominal Pain HPI - General Chief Complaint: Abdominal Pain Stated Complaint: ABD pain Time Seen by Provider: 05/23/20 21:16 Source: patient Mode of arrival: ambulatory Limitations: no limitations - History of Present Illness Initial Comments: 24-year-old female presenting today for chief complaint of left upper quadrant abdominal pain. 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 Patient states she did not undergo chemotherapy and told she was in remission. Patient states that her pain after the surgery went away however it has been back for the past few days. She admits to nausea, denies vomiting, denies chest pain, dyspnea, occasional loose stools. Denies fevers, cough, congestion, Denies radiation of pain to the back. Patient denies jaundice. Denies bloody or dark stools. Patient states she also is displeased with her psychiatrist taking her off zyprexa and changing her to a monthly injection and wants to know if there is something we can do about that. Patient states he last injection was 2 weeks ago. patient denies suicidal or homicidal ideation, she denies hallucinations. patient does not appear acutely psychotic on arrival. - Related Data Home Medications Medication Instructions Recorded Confirmed Pregabalin 200 mg PO TID 06/21/19 05/23/20 Meclizine HCl 25 mg PO Q6H PRN 03/02/20 05/23/20 Haloperidol Decanoate [Haldol D] 50 mg IM Q28D 05/23/20 05/23/20 Meloxicam [Mobic] 7.5 mg PO DAILY 05/23/20 05/23/20 Mirtazapine [Remeron] 60 mg PO HS 05/23/20 05/23/20 Multivitamins, Thera [Multivitamin 1 tab PO DAILY 05/23/20 05/23/20 (formulary)] [employer]-3 Fatty Acids/Fish Oil [Fish 1 cap PO DAILY 05/23/20 05/23/20 Oil 1,000 mg Softgel] hydrOXYzine pamoate [Vistaril] 50 mg PO BID 05/23/20 05/23/20 Previous Rx's Medication Instructions Recorded Benztropine Mesylate [Cogentin] 1 mg PO BID 30 Days tab 03/09/20 OXcarbazepine [Trileptal] 600 mg PO BID 30 Days tab 03/09/20 cloNIDine HCL [Catapres] 0.2 mg PO BID 30 Days tab 03/09/20 Allergies Allergy/AdvReac Type Severity Reaction Status Date / Time No Known Allergies Allergy Verified 05/23/20 22:19 Review of Systems ROS Statement: Those systems with pertinent positive or pertinent negative responses have been documented in the HPI. ROS Other: All systems not noted in ROS Statement are negative. Past Medical History Past Medical History: Seizure Disorder Additional Past Medical History / Comment(s): agoraphobia, borderline, seizure disorder: last seizure was a "1 month ago." Polycystic ovary syndrome, chronic back spasms , autism does not use link. Sinus tachycardia, mass possible cancer patient unsure, wrist drop on the left History of Any Multi-Drug Resistant Organisms: None Reported Past Surgical History: Ear Surgery Additional Past Surgical History / Comment(s): Bilateral ear tube insertion as a young child. 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 Past Anesthesia/Blood Transfusion Reactions: No Reported Reaction Past Psychological History: ADD/ADHD, Anxiety, Depression, PTSD, Schizoaffective Disorder Smoking Status: Current every day smoker, Vaper Past Alcohol Use History: Occasional Past Drug Use History: Marijuana, Methamphetamine, Prescription Drug Abuse - Past Family History Father Family Medical History: Hypertension Additional Family Medical History / Comment(s): Father is alive at age 50 with Testosterone deficiency Mother Additional Family Medical History / Comment(s): Mother is alive at age 48 with history of MPD, bipolar, depression. Brother(s) Additional Family Medical History / Comment(s): She has 4 brothers with no major medical problems. She does not have any sisters. She does not have any children. General Exam - General Exam Comments Initial Comments: General: The patient is awake and alert, in no distress, and does not appear acutely ill. Eye: Pupils are equal, round and reactive to light, extra-ocular movements are intact. No nystagmus. There is normal conjunctiva bilaterally. No signs of icterus. Ears, nose, mouth and throat: There are moist mucous membranes and no oral lesions. Neck: The neck is supple, there is no tenderness or JVD. Cardiovascular: There is a regular rate and rhythm. No murmur, rub or gallop is appreciated. Respiratory: Lungs are clear to auscultation, respirations are non-labored, breath sounds are equal. No wheezes, stridor, rales, or rhonchi. Gastrointestinal: Large scar over mid toleft side of abdomen, Soft, non- distended, epigastric/LUQ tenderness to palpation of the abdomen, abdomen is without masses or organomegaly noted. There is no rebound or guarding present. No CVA tenderness. Bowel sounds are unremarkable. Musculoskeletal: Normal ROM, no tenderness. Strength 5/5. Sensation intact. Radial and DP pulses equal bilaterally 2+. Neurological: A&O x 3. CN II-XII intact grossly, There are no obvious motor or sensory deficits. Coordination appears grossly intact. Speech is normal. Skin: Skin is warm and dry and no rashes or lesions are noted. No LE edema, or calf pain/swelling Psychiatric: Cooperative, appropriate mood & affect, normal judgment. Limitations: no limitations Course Vital Signs 05/23/20 05/23/20 20:50 23:22 Temperature 99.5 F Pulse Rate 120 H 97 Respiratory 18 18 Rate Blood Pressure 132/92 132/75 O2 Sat by Pulse 100 100 Oximetry Medical Decision Making - Medical Decision Making Epigastric, LUQ pain. No fever. No vomiting. Labs stable. Lipase WNL. No melena or hematochezia endorsed. Pt CT WNL, postoperative findings but no other acute abnormalities noted. Patient appears well nontoxic, afebrile. VS improved and at this time I feel she is stable for dsicharge with PCP f/u, return for worsening symptoms. pt agreeable to this care plan. Dr. Esteves attending. - Lab Data Result diagrams: 05/23/20 22:31 05/23/20 22:31 Lab Results 05/23/20 05/23/20 05/23/20 Range/Units 22:31 22:31 22:31 WBC 10.9 H (3.8-10.6) k/uL RBC 5.07 (3.80-5.40) m/uL Hgb 14.9 (11.4-16.0) gm/dL Hct 41.8 (34.0-46.0) % MCV 82.6 (80.0-100.0) fL MCH 29.5 (25.0-35.0) pg MCHC 35.7 (31.0-37.0) g/dL RDW 13.4 (11.5-15.5) % Plt Count 233 (150-450) k/uL MPV 9.0 Neutrophils % 55 % Lymphocytes % 37 % Monocytes % 5 % Eosinophils % 2 % Basophils % 0 % Neutrophils # 5.9 (1.3-7.7) k/uL Lymphocytes # 4.0 (1.0-4.8) k/uL Monocytes # 0.5 (0-1.0) k/uL Eosinophils # 0.2 (0-0.7) k/uL Basophils # 0.1 (0-0.2) k/uL Sodium 136 L (137-145) mmol/L Potassium 3.7 (3.5-5.1) mmol/L Chloride 102 (98-107) mmol/L Carbon Dioxide 27 (22-30) mmol/L Anion Gap 7 mmol/L BUN 2 L (7-17) mg/dL Creatinine 0.79 (0.52-1.04) mg/dL Est GFR (CKD-EPI)AfAm >90 (>60 ml/min/1.73 sqM) Est GFR (CKD-EPI)NonAf >90 (>60 ml/min/1.73 sqM) Glucose 97 (74-99) mg/dL Plasma Lactic Acid Jason (0.7-2.0) mmol/L Calcium 9.3 (8.4-10.2) mg/dL Total Bilirubin 0.2 (0.2-1.3) mg/dL AST 26 (14-36) U/L ALT 24 (4-34) U/L Alkaline Phosphatase 146 H (38-126) U/L Total Protein 6.8 (6.3-8.2) g/dL Albumin 4.1 (3.5-5.0) g/dL Amylase 55 (30-110) U/L Lipase 28 (23-300) U/L Urine Color Light Yellow Urine Appearance Clear (Clear) Urine pH 7.0 (5.0-8.0) Ur Specific Jewell 1.003 (1.001-1.035) Urine Protein Negative (Negative) Urine Glucose (UA) Negative (Negative) Urine Ketones Negative (Negative) Urine Blood Moderate H (Negative) Urine Nitrite Negative (Negative) Urine Bilirubin Negative (Negative) Urine Urobilinogen <2.0 (<2.0) mg/dL Ur Leukocyte Esterase Negative (Negative) Urine RBC 3 (0-5) /hpf Urine WBC 2 (0-5) /hpf Ur Squamous Epith Cells 5 H (0-4) /hpf Urine Bacteria Rare H (None) /hpf 05/23/20 Range/Units 22:31 WBC (3.8-10.6) k/uL RBC (3.80-5.40) m/uL Hgb (11.4-16.0) gm/dL Hct (34.0-46.0) % MCV (80.0-100.0) fL MCH (25.0-35.0) pg MCHC (31.0-37.0) g/dL RDW (11.5-15.5) % Plt Count (150-450) k/uL MPV Neutrophils % % Lymphocytes % % Monocytes % % Eosinophils % % Basophils % % Neutrophils # (1.3-7.7) k/uL Lymphocytes # (1.0-4.8) k/uL Monocytes # (0-1.0) k/uL Eosinophils # (0-0.7) k/uL Basophils # (0-0.2) k/uL Sodium (137-145) mmol/L Potassium (3.5-5.1) mmol/L Chloride (98-107) mmol/L Carbon Dioxide (22-30) mmol/L Anion Gap mmol/L BUN (7-17) mg/dL Creatinine (0.52-1.04) mg/dL Est GFR (CKD-EPI)AfAm (>60 ml/min/1.73 sqM) Est GFR (CKD-EPI)NonAf (>60 ml/min/1.73 sqM) Glucose (74-99) mg/dL Plasma Lactic Acid Jason 1.8 (0.7-2.0) mmol/L Calcium (8.4-10.2) mg/dL Total Bilirubin (0.2-1.3) mg/dL AST (14-36) U/L ALT (4-34) U/L Alkaline Phosphatase (38-126) U/L Total Protein (6.3-8.2) g/dL Albumin (3.5-5.0) g/dL Amylase (30-110) U/L Lipase (23-300) U/L Urine Color Urine Appearance (Clear) Urine pH (5.0-8.0) Ur Specific Jewell (1.001-1.035) Urine Protein (Negative) Urine Glucose (UA) (Negative) Urine Ketones (Negative) Urine Blood (Negative) Urine Nitrite (Negative) Urine Bilirubin (Negative) Urine Urobilinogen (<2.0) mg/dL Ur Leukocyte Esterase (Negative) Urine RBC (0-5) /hpf Urine WBC (0-5) /hpf Ur Squamous Epith Cells (0-4) /hpf Urine Bacteria (None) /hpf Disposition Clinical Impression: LUQ abdominal pain Disposition: HOME SELF-CARE Condition: Good Instructions (If sedation given, give patient instructions): Abdominal Pain (E D) Additional Instructions: Please use medication as discussed. Please follow-up with family doctor in the next 2 days. Please return to emergency room if the symptoms increase or worsen or for any other concerns. Is patient prescribed a controlled substance at d/c from ED?: No Referrals: Adal Meadows MD [Primary Care Provider] - 1-2 days Time of Disposition: 23:33
[2020-05-23 22:49] LABS: Basophils # (A) 0.1 k/uL (0-0.2); Basophils % (A) 0 %; Eosinophils # (A) 0.2 k/uL (0-0.7); Eosinophils % (A) 2 %; HCT 41.8 % (34.0-46.0); HGB 14.9 gm/dL (11.4-16.0); Lymphocytes % (A) 37 %; MCH 29.5 pg (25.0-35.0); MCHC 35.7 g/dL (31.0-37.0); MCV 82.6 fL (80.0-100.0); Monocytes # (A) 0.5 k/uL (0-1.0); Monocytes % (A) 5 %; Neutrophils # (A) 5.9 k/uL (1.3-7.7); Neutrophils % (A) 55 %; Platelet Count 233 k/uL (150-450); RBC 5.07 m/uL (3.80-5.40); RDW 13.4 % (11.5-15.5); WBC 10.9 k/uL (3.8-10.6)
[2020-05-23 23:00] LABS: ALT 24 U/L (4-34); AST 26 U/L (14-36); African American GFR (CKD) >90 (>60 ml/min/1.73 sqM); Albumin 4.1 g/dL (3.5-5.0); Alkaline Phosphatase 146 U/L (38-126); Amylase 55 U/L (30-110); Anion Gap 7 mmol/L; Blood Urea Nitrogen 2 mg/dL (7-17); Calcium 9.3 mg/dL (8.4-10.2); Carbon Dioxide 27 mmol/L (22-30); Chloride 102 mmol/L (98-107); Glucose 97 mg/dL (74-99); Lipase 28 U/L (23-300); Non-African American GFR(CKD) >90 (>60 ml/min/1.73 sqM); Potassium 3.7 mmol/L (3.5-5.1); Sodium 136 mmol/L (137-145); Total Bilirubin 0.2 mg/dL (0.2-1.3); Total Protein 6.8 g/dL (6.3-8.2)
[2020-05-23 23:11] LABS: Appearance,Urine Clear (Clear); Bacteria,Urine Rare /hpf; Bilirubin,Urine Negative (Negative); Blood,Urine Moderate (Negative); Color,Urine Light Yellow; Glucose,Urine (UA) Negative (Negative); Ketones,Urine Negative (Negative); Leukocyte Esterase,Urine Negative (Negative); Nitrite,Urine Negative (Negative); Protein,Urine Negative (Negative); RBC,Urine 3 /hpf (0-5); Specific Gravity,Urine 1.003 (1.001-1.035); Squamous Epithelial Cell,Urine 5 /hpf (0-4); Urobilinogen,Urine <2.0 mg/dL (<2.0); WBC,Urine 2 /hpf (0-5)
--- NOTE | 2020-05-23 23:15 | XR ---
EXAMINATION TYPE: XR chest 2V DATE OF EXAM: 05/23/2020 COMPARISON: 03/02/2020 HISTORY: Left upper quadrant pain TECHNIQUE: FINDINGS: Heart and mediastinum are normal. Lungs are clear. Diaphragm is normal. Bony thorax appears normal. IMPRESSION: Normal chest
[2020-05-23 23:23] VITALS: BP 132/75; PULSE 97
--- NOTE | 2020-05-23 23:29 | CT ---
EXAMINATION TYPE: CT abdomen pelvis w con DATE OF EXAM: 05/23/2020 COMPARISON: 09/22/2019 HISTORY: LUQ pain CT DLP: 1488.90 mGycm Automated exposure control for dose reduction was used. CONTRAST: Performed with IV Contrast, patient injected with 100 mL of Isovue 300. Images obtained from the diaphragm to the floor the pelvis with IV contrast. The lung bases are clear. There is no pleural effusion. Heart appears normal. Liver spleen stomach appear intact. The bile ducts are nondilated. Gallbladder appears normal. There are some retroperitoneal surgical clips and apparent partial resection of the pancreas. I see no panc reatic mass. The body and tail of the pancreas are not seen. There is no adrenal mass. Kidneys show satisfactory contrast opacification. There is no hydronephrosi s. Ureters are not dilated. Delayed images show normal renal excretion. There is no retroperitoneal a denopathy. Bladder distends smoothly. There is no inguinal hernia. Uterus is anteverted. There is no evidence of a pelvic mass. There is no free fluid in the pelvis. Lumbar vertebra have normal alignmen t. There is no compression fracture. Appendix is posterior and appears normal. There is no mesenteric edema. There is no ascites or free air. There is no bowel obstruction. I see no intestinal wall thic kening. Bony pelvis is intact. Hip joints are intact. IMPRESSION: No significant abnormality. Previous pancreas surgery. There is clearing of the fat stranding and inf lammatory changes in the retroperitoneum compared to old exam. There is removal of the retroperitonea l drain compared to old exam. There is clearing of the small bowel ileus and dilated small bowel loop s compared to old exam.
== END 2020-05-23 23:45 | disposition home or self-care (01) ==
LOC: EC 20:46
DX: R10.12 Left upper quadrant pain (principal); F17.200 Nicotine dependence, unspecified, uncomplicated; F12.90 Cannabis use, unspecified, uncomplicated
CPT/HCPCS: 36415; 71046; 74177; 80053; 81001; 82150; 83605; 83690; 85025; 96361; 96365; 99284

== ENCOUNTER 2020-06-18 17:28 | Emergency (ER) | payer OTHER ==
[2020-06-18 17:48] VITALS: BP 141/86
[2020-06-18 18:04] VITALS: RESP 16; TEMP 98.2
[2020-06-18] MEDS ORDERED: Acetaminophen-Codeine 300-30mg TAB PO STA (18:31)
[2020-06-18] MEDS ORDERED: KETOROLAC 15 MG/ML 1 ML VIAL IM STA (18:31)
[2020-06-18] MEDS ORDERED: TRIMETHOBENZAMIDE 100 MG/ML 2 ML VIAL IM STA (18:44)
--- NOTE | 2020-06-18 18:44 | ED ---
ENT HPI - General Source: patient, RN notes reviewed Mode of arrival: ambulatory Limitations: no limitations - History of Present Illness MD complaint: tooth pain, other (tmj pain left side) -: week(s) (2) Location: tooth # (14, 2, 17, 18, 32,31 broken teeth) Quality: aching Consistency: constant Context- Dental: history of dental caries, poor dental care Context- Ear: other (tmj with pain to left ear) <Rohith Manley - Last Filed: 06/18/20 19:56> <Steph Aviles - Last Filed: 06/21/20 02:24> - General Chief complaint: Dental/Oral Stated complaint: Jaw Pain Time Seen by Provider: 06/18/20 17:58 - History of Present Illness Initial comments: 24-year-old white female patient, alert and oriented 4, presents to the emergency room with chronic dental caries and fractured teeth. Patient states has agoraphobia so she has not followed up with dentist. Patient has had these dental caries for the past 6 years and recently over the past 2 weeks has developed nausea from the pain. Patient states she smokes 3/4 of a pack cigarettes a day along with vaping. Patient states she has anxiety, depression, PTSD and autism. She is moving to [place] this Saturday with friends and states she can get insurance quickly down there for f/u. Patient denies any fevers or headaches. (Rohith Manley) - Related Data Home Medications Medication Instructions Recorded Confirmed Pregabalin 200 mg PO TID 06/21/19 05/23/20 Meclizine HCl 25 mg PO Q6H PRN 03/02/20 05/23/20 Haloperidol Decanoate [Haldol D] 50 mg IM Q28D 05/23/20 05/23/20 Meloxicam [Mobic] 7.5 mg PO DAILY 05/23/20 05/23/20 Mirtazapine [Remeron] 60 mg PO HS 05/23/20 05/23/20 Multivitamins, Thera [Multivitamin 1 tab PO DAILY 05/23/20 05/23/20 (formulary)] [employer]-3 Fatty Acids/Fish Oil [Fish 1 cap PO DAILY 05/23/20 05/23/20 Oil 1,000 mg Softgel] hydrOXYzine pamoate [Vistaril] 50 mg PO BID 05/23/20 05/23/20 Previous Rx's Medication Instructions Recorded Benztropine Mesylate [Cogentin] 1 mg PO BID 30 Days tab 03/09/20 OXcarbazepine [Trileptal] 600 mg PO BID 30 Days tab 03/09/20 cloNIDine HCL [Catapres] 0.2 mg PO BID 30 Days tab 03/09/20 Acetaminophen-Codeine 300-30mg 1 tab PO Q6H PRN 3 Days #12 tablet 06/18/20 [Tylenol w/codeine #3] Penicillin V Potassium [Pen Vee K] 500 mg PO Q6HR 7 Days #28 tablet 06/18/20 Allergies Allergy/AdvReac Type Severity Reaction Status Date / Time No Known Allergies Allergy Verified 06/18/20 17:48 Review of Systems ROS Other: All systems not noted in ROS Statement are negative. <Rohith Manley - Last Filed: 06/18/20 19:56> ROS Other: All systems not noted in ROS Statement are negative. <Steph Aviles - Last Filed: 06/21/20 02:24> ROS Statement: Those systems with pertinent positive or pertinent negative responses have been documented in the HPI. Past Medical History Past Medical History: Seizure Disorder Additional Past Medical History / Comment(s): agoraphobia, borderline, seizure disorder: last seizure was a "1 month ago." Polycystic ovary syndrome, chronic back spasms , autism does not use link. Sinus tachycardia, mass possible cancer patient unsure, wrist drop on the left, neuropathy, arthritis History of Any Multi-Drug Resistant Organisms: None Reported Past Surgical History: Ear Surgery Additional Past Surgical History / Comment(s): Bilateral ear tube insertion as a young child. 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 Past Anesthesia/Blood Transfusion Reactions: No Reported Reaction Past Psychological History: ADD/ADHD, Anxiety, Depression, PTSD, Schizoaffective Disorder Smoking Status: Current every day smoker, Vaper Past Alcohol Use History: Occasional Past Drug Use History: Marijuana, Methamphetamine, Prescription Drug Abuse - Past Family History Father Family Medical History: Hypertension Additional Family Medical History / Comment(s): Father is alive at age 50 with Testosterone deficiency Mother Additional Family Medical History / Comment(s): Mother is alive at age 48 with history of MPD, bipolar, depression. Brother(s) Additional Family Medical History / Comment(s): She has 4 brothers with no major medical problems. She does not have any sisters. She does not have any children. <Rohith Manley - Last Filed: 06/18/20 19:56> General Exam Limitations: no limitations General appearance: alert, in no apparent distress Head exam: Present: atraumatic, normocephalic, normal inspection Eye exam: Present: normal appearance, PERRL, EOMI. Absent: scleral icterus, conjunctival injection, periorbital swelling Pupils: Present: normal accommodation ENT exam: Present: normal exam, normal oropharynx, mucous membranes moist Neck exam: Present: normal inspection, full ROM. Absent: tenderness, meningismus, lymphadenopathy Respiratory exam: Present: normal lung sounds bilaterally. Absent: respiratory distress, wheezes, rales, rhonchi, stridor Cardiovascular Exam: Present: tachycardia, normal heart sounds. Absent: JVD GI/Abdominal exam: Present: soft, normal bowel sounds, other (left sided abdominal scar from pancreatic tumor removal). Absent: distended, tenderness, guarding, rebound, rigid Rectal exam: Present: deferred Back exam: Present: normal inspection, full ROM. Absent: tenderness, CVA tenderness (R), CVA tenderness (L) Neurological exam: Present: alert, oriented X3 Psychiatric exam: Present: normal affect, normal mood Skin exam: Present: warm, dry, intact, normal color. Absent: rash, cyanosis, diaphoretic, erythema <Rohith Manley - Last Filed: 06/18/20 19:56> Course Vital Signs 06/18/20 06/18/20 06/18/20 17:43 18:03 20:26 Temperature 98.3 F 98.2 F Pulse Rate 131 H 124 H 113 H Respiratory 18 16 Rate Blood Pressure 141/86 O2 Sat by Pulse 100 99 Oximetry Medical Decision Making <Rohith Manley - Last Filed: 06/18/20 19:56> <Steph Aviles - Last Filed: 06/21/20 02:24> - Medical Decision Making Patient has chronic dental caries with dental fractures since she was 18 years old and has not followed up with a dentist as recommended. Patient without fevers, no lymphadenopathy, denies vomiting. Moist mucous membranes, there is no erythema or exudate of tonsils, uvula is midline. There are no signs of dental or peritonsilar abscesses. Airway is patent and pt handling own secretions. There is no swelling or loss of nasolabial folds. There is no facial tenderness to palpation. Patient tolerating oral fluids, states pain is 6 out of 10, ambulating in room with a heart rate 124. Patient anxious about moving to [place] and trying to find a dentist, primary care doctor, and neurologist to handle her migraine headaches. Patient will be treated with Penicillin and given Tylenol #3 for pain. Case discussed with Dr. Aviles who was agreeable to this plan. (Rohith Manley) I was available for consultation in the emergency department. The history and physical exam were done by the midlevel provider. I was consulted for this patients care. I reviewed the case with the midlevel provider and based on their presentation of the patient, I agree with the assessment, medical decision making and plan of care as documented. Chart was dictated using [employer] dictation software. Attempts were made to correct any dictation errors however some typographical errors may persist. Patient was seen during a national state of emergency due to the Covid-19 pandemic. (Steph Aviles) Disposition Is patient prescribed a controlled substance at d/c from ED?: Yes When asked, does pt state using other controlled substances?: No If opioid is for acute pain is fill amount 7 days or less?: Yes If Rx opioid, was Start Talking consent form obtained?: Yes Time of Disposition: 19:50 <Rohith Manley - Last Filed: 06/18/20 19:56> <Steph Aviles - Last Filed: 06/21/20 02:24> Clinical Impression: Dental caries, Fracture of tooth Disposition: HOME SELF-CARE Condition: Fair Instructions (If sedation given, give patient instructions): Toothache (ED) Prescriptions: Penicillin V Potassium [Pen Vee K] 500 mg PO Q6HR 7 Days #28 tablet Acetaminophen-Codeine 300-30mg [Tylenol w/codeine #3] 1 tab PO Q6H PRN 3 Days #12 tablet PRN Reason: dental pain Referrals: Adal Meadows MD [Primary Care Provider] - 1-2 days
[2020-06-18 20:27] VITALS: PULSE 113
== END 2020-06-18 20:27 | disposition home or self-care (01) ==
LOC: EC 17:28
DX: S02.5XXA Fracture of tooth (traumatic), initial encounter for closed fracture (principal); F41.9 Anxiety disorder, unspecified; F32.9 Major depressive disorder, single episode, unspecified; F17.290 Nicotine dependence, other tobacco product, uncomplicated; F12.90 Cannabis use, unspecified, uncomplicated; F15.90 Other stimulant use, unspecified, uncomplicated; X58.XXXA Exposure to other specified factors, initial encounter
CPT/HCPCS: 99283; 96372; J3250; J1885

== ENCOUNTER 2020-08-03 20:58 | Emergency (ER) | payer OTHER ==
[2020-08-03 21:09] VITALS: BP 130/76; PULSE 104; RESP 16; TEMP 97.9
[2020-08-03] MEDS ORDERED: ACET/COD 300 MG/30 MG STARTER PACK 6 TAB BTL PO STA (21:26)
--- NOTE | 2020-08-03 21:31 | ED ---
ENT HPI - General Chief complaint: Dental/Oral Stated complaint: dental pain Time Seen by Provider: 08/03/20 21:13 Source: patient, EMS Mode of arrival: EMS Limitations: no limitations - History of Present Illness Initial comments: Patient is a 24-year-old female presenting to the emergency department via EMS with complaints of left-sided dental pain has been increasing over the past week. Patient states she no she has many dental caries and fractured teeth and has not followed up with her dentist. Patient was seen here about a month and half ago for same complaint, she states she took her antibiotics and her symptoms improved. She states about 5 days ago she started having pain again and feels like she is getting another infection. She denies any fevers or chills, no nausea or vomiting. She denies any trouble breathing, she denies any chest pain or short of breath. She has no further complaints at this time. Upon arrival to the ER, her vitals are stable. - Related Data Home Medications Medication Instructions Recorded Confirmed Pregabalin 200 mg PO TID 06/21/19 05/23/20 Meclizine HCl 25 mg PO Q6H PRN 03/02/20 05/23/20 Haloperidol Decanoate [Haldol D] 50 mg IM Q28D 05/23/20 05/23/20 Meloxicam [Mobic] 7.5 mg PO DAILY 05/23/20 05/23/20 Mirtazapine [Remeron] 60 mg PO HS 05/23/20 05/23/20 Multivitamins, Thera [Multivitamin 1 tab PO DAILY 05/23/20 05/23/20 (formulary)] [place]-3 Fatty Acids/Fish Oil [Fish 1 cap PO DAILY 05/23/20 05/23/20 Oil 1,000 mg Softgel] hydrOXYzine pamoate [Vistaril] 50 mg PO BID 05/23/20 05/23/20 Previous Rx's Medication Instructions Recorded Benztropine Mesylate [Cogentin] 1 mg PO BID 30 Days tab 03/09/20 OXcarbazepine [Trileptal] 600 mg PO BID 30 Days tab 03/09/20 cloNIDine HCL [Catapres] 0.2 mg PO BID 30 Days tab 03/09/20 Acetaminophen-Codeine 300-30mg 1 tab PO Q6H PRN 3 Days #12 tablet 06/18/20 [Tylenol w/codeine #3] Penicillin V Potassium [Pen Vee K] 500 mg PO Q6HR 7 Days #28 tablet 06/18/20 Penicillin V Potassium [Pen Vee K] 500 mg PO QID #40 tablet 08/03/20 Allergies Allergy/AdvReac Type Severity Reaction Status Date / Time No Known Allergies Allergy Verified 06/18/20 17:48 Review of Systems ROS Statement: Those systems with pertinent positive or pertinent negative responses have been documented in the HPI. ROS Other: All systems not noted in ROS Statement are negative. Past Medical History Past Medical History: Seizure Disorder Additional Past Medical History / Comment(s): agoraphobia, borderline, seizure disorder: last seizure was a "1 month ago." Polycystic ovary syndrome, chronic back spasms , autism does not use link. Sinus tachycardia, mass possible cancer patient unsure, wrist drop on the left, neuropathy, arthritis History of Any Multi-Drug Resistant Organisms: None Reported Past Surgical History: Ear Surgery Additional Past Surgical History / Comment(s): Bilateral ear tube insertion as a young child. 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 Past Anesthesia/Blood Transfusion Reactions: No Reported Reaction Past Psychological History: ADD/ADHD, Anxiety, Depression, PTSD, Schizoaffective Disorder Smoking Status: Current every day smoker, Vaper Past Alcohol Use History: Occasional Past Drug Use History: Marijuana, Methamphetamine, Prescription Drug Abuse - Past Family History Father Family Medical History: Hypertension Additional Family Medical History / Comment(s): Father is alive at age 50 with Testosterone deficiency Mother Additional Family Medical History / Comment(s): Mother is alive at age 48 with history of MPD, bipolar, depression. Brother(s) Additional Family Medical History / Comment(s): She has 4 brothers with no major medical problems. She does not have any sisters. She does not have any children. General Exam - General Exam Comments Initial Comments: GENERAL: Patient is well-developed and well-nourished. Patient is nontoxic and in no acute distress. HEAD: Atraumatic, normocephalic. EYES: Pupils equal round and reactive to light, extraocular movements intact, sclera anicteric, conjunctiva are normal. Eyelids were unremarkable. ENT: TMs normal, nares patent, oropharynx clear without exudates. Moist mucous membranes. Patient has numerous dental caries and fractured teeth, she has some erythema along the left lower gumline, numerous teeth are painful to palpation. No visible dental abscess seen. There is no facial swelling. Uvula is midline. NECK: Normal range of motion, supple without lymphadenopathy or JVD. LUNGS: Unlabored respirations. Breath sounds clear to auscultation bilaterally and equal. No wheezes rales or rhonchi. HEART: Regular rate and rhythm without murmurs, rubs or gallops. ABDOMEN: Soft, nontender, normoactive bowel sounds. No guarding, no rebound. No masses appreciated. : Deferred MUSCULOSKELETAL: Normal extremities with adequate strength and normal range of motion, no pitting or edema. No clubbing or cyanosis. NEUROLOGICAL: Patient is alert and oriented x 3. Normal speech, normal gait. PSYCH: Normal mood, normal affect. SKIN: Warm, Dry, normal turgor, no rashes or lesions noted. Limitations: no limitations Course Vital Signs 08/03/20 21:05 Temperature 97.9 F Pulse Rate 104 H Respiratory 16 Rate Blood Pressure 130/76 Medical Decision Making - Medical Decision Making Patient is a 24-year-old female presenting via EMS for left-sided dental pain f or the past week. She has been seen here before for similar complaint. She has yet to follow up with her dentist. No fevers, vitals are stable. She has no visible dental abscess seen, multiple dental caries and fractured teeth. No facial swelling, uvula is midline, no trouble breathing. Patient will be placed on penicillin and Tylenol 3 prepack for pain. She stable for discharge. She needs to follow up with her dentist. I discussed with her the urgency regarding these multiple dental infections. Patient is in agreement with this plan of care. Return parameters were discussed with her and she verbalized understanding. Case discussed with Dr. Vasquez. Disposition Clinical Impression: Dental caries, Fracture of tooth, Toothache Disposition: HOME SELF-CARE Condition: Stable Instructions (If sedation given, give patient instructions): Toothache (ED) Additional Instructions: Please return to the Emergency Department if symptoms worsen or any other concerns. Take antibiotics as prescribed. May take Tylenol for any discomfort, Tylenol 3 for more severe pain. Follow-up with dentist. Prescriptions: Penicillin V Potassium [Pen Vee K] 500 mg PO QID #40 tablet Is patient prescribed a controlled substance at d/c from ED?: No Referrals: Adal Meadows MD [Primary Care Provider] - 1-2 days Time of Disposition: 21:31
== END 2020-08-03 22:07 | disposition home or self-care (01) ==
LOC: EC 20:58
DX: S02.5XXA Fracture of tooth (traumatic), initial encounter for closed fracture (principal); K02.9 Dental caries, unspecified; G40.909 Epilepsy, unspecified, not intractable, without status epilepticus; F17.200 Nicotine dependence, unspecified, uncomplicated; F32.9 Major depressive disorder, single episode, unspecified; F41.9 Anxiety disorder, unspecified; G62.9 Polyneuropathy, unspecified; F25.9 Schizoaffective disorder, unspecified; F12.90 Cannabis use, unspecified, uncomplicated; X58.XXXA Exposure to other specified factors, initial encounter
CPT/HCPCS: 99283

== ENCOUNTER 2020-08-28 13:56 | Emergency (ER) | payer OTHER ==
[2020-08-28 14:06] VITALS: TEMP 98
[2020-08-28] MEDS ORDERED: MORPHINE SULFATE 4 MG/ML SYRINGE IM STA (14:42)
[2020-08-28 14:45] VITALS: BP 140/86; PULSE 117; RESP 18
[2020-08-28] MEDS ORDERED: KETOROLAC 15 MG/ML 1 ML VIAL IM STA (14:52)
[2020-08-28] MEDS ORDERED: KETOROLAC 15 MG/ML 1 ML VIAL ONE (14:53)
--- NOTE | 2020-08-28 14:57 | ED ---
ENT HPI - General Chief complaint: Dental/Oral Stated complaint: abscess in mouth Time Seen by Provider: 08/28/20 14:16 Source: patient, RN notes reviewed Mode of arrival: ambulatory Limitations: no limitations - History of Present Illness Initial comments: Patient is a 24-year-old female that presents to the emergency department complaining of left upper tooth abscess. She notes she's had this issue several times in the past several months and antibiotics have help to keep it at bay. She notes that she has been unable to follow up with her dentist due to insurance issues. She notes her insurance recently kicked in and plans to follow-up Saturday. She notes that she did have some pain in her cheek. Patient was a well-appearing well-hydrated 24-year-old female in no apparent distress or pain while sitting up in bed during the exam interview. She did not have any difficulty breathing talking. She did not complain of any facial swelling. No that her pain at rest was approximately a 6-7 out of 10 with no relief from at home medications. She denied any chest pain shortness of breath headache nausea vomiting diarrhea constipation fever fatigue chills. - Related Data Home Medications Medication Instructions Recorded Confirmed Pregabalin 200 mg PO TID 06/21/19 05/23/20 Meclizine HCl 25 mg PO Q6H PRN 03/02/20 05/23/20 Haloperidol Decanoate [Haldol D] 50 mg IM Q28D 05/23/20 05/23/20 Meloxicam [Mobic] 7.5 mg PO DAILY 05/23/20 05/23/20 Mirtazapine [Remeron] 60 mg PO HS 05/23/20 05/23/20 Multivitamins, Thera [Multivitamin 1 tab PO DAILY 05/23/20 05/23/20 (formulary)] [place]-3 Fatty Acids/Fish Oil [Fish 1 cap PO DAILY 05/23/20 05/23/20 Oil 1,000 mg Softgel] hydrOXYzine pamoate [Vistaril] 50 mg PO BID 05/23/20 05/23/20 Previous Rx's Medication Instructions Recorded Benztropine Mesylate [Cogentin] 1 mg PO BID 30 Days tab 03/09/20 OXcarbazepine [Trileptal] 600 mg PO BID 30 Days tab 03/09/20 cloNIDine HCL [Catapres] 0.2 mg PO BID 30 Days tab 03/09/20 Acetaminophen-Codeine 300-30mg 1 tab PO Q6H PRN 3 Days #12 tablet 06/18/20 [Tylenol w/codeine #3] Penicillin V Potassium [Pen Vee K] 500 mg PO Q6HR 7 Days #28 tablet 06/18/20 Penicillin V Potassium [Pen Vee K] 500 mg PO QID #40 tablet 08/03/20 Amoxicillin/Potassium Clav 1 tab PO Q12HR #20 tab 08/28/20 [Augmentin 875-125 Tablet] Allergies Allergy/AdvReac Type Severity Reaction Status Date / Time No Known Allergies Allergy Verified 08/28/20 13:57 Review of Systems ROS Statement: Those systems with pertinent positive or pertinent negative responses have been documented in the HPI. ROS Other: All systems not noted in ROS Statement are negative. Past Medical History Past Medical History: Seizure Disorder Additional Past Medical History / Comment(s): agoraphobia, borderline, seizure disorder: last seizure was a "1 month ago." Polycystic ovary syndrome, chronic back spasms , autism does not use link. Sinus tachycardia, mass possible cancer patient unsure, wrist drop on the left, neuropathy, arthritis History of Any Multi-Drug Resistant Organisms: None Reported Past Surgical History: Ear Surgery Additional Past Surgical History / Comment(s): Bilateral ear tube insertion as a young child. 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 Past Anesthesia/Blood Transfusion Reactions: No Reported Reaction Past Psychological History: ADD/ADHD, Anxiety, Depression, PTSD, Schizoaffective Disorder Smoking Status: Current every day smoker, Vaper Past Alcohol Use History: Occasional Past Drug Use History: Marijuana, Methamphetamine, Prescription Drug Abuse - Past Family History Father Family Medical History: Hypertension Additional Family Medical History / Comment(s): Father is alive at age 50 with Testosterone deficiency Mother Additional Family Medical History / Comment(s): Mother is alive at age 48 with history of MPD, bipolar, depression. Brother(s) Additional Family Medical History / Comment(s): She has 4 brothers with no major medical problems. She does not have any sisters. She does not have any children. General Exam Limitations: no limitations General appearance: alert, in no apparent distress, obese Head exam: Present: atraumatic, normocephalic, normal inspection Eye exam: Present: normal appearance, PERRL, EOMI. Absent: scleral icterus, conjunctival injection, periorbital swelling Expanded Mouth exam: Present: tongue normal. Absent: drooling, trismus, tongue elevation, laceration Teeth exam: Present: dental caries (Multiple), fractured tooth # (Multiple). Absent: normal inspection Throat exam: normal inspection Neck exam: Present: normal inspection. Absent: tenderness, lymphadenopathy Respiratory exam: Present: normal lung sounds bilaterally. Absent: respiratory distress, wheezes, rales, rhonchi, stridor Cardiovascular Exam: Present: regular rate, normal rhythm, normal heart sounds. Absent: systolic murmur, diastolic murmur, rubs, gallop, clicks Extremities exam: Present: normal inspection, full ROM, normal capillary refill. Absent: tenderness, pedal edema, joint swelling, calf tenderness Neurological exam: Present: alert, oriented X3 Psychiatric exam: Present: normal affect, normal mood Skin exam: Present: warm, dry, intact, normal color, other (Too numerous to count scars on bilateral forearms from self-harm.). Absent: rash Course Vital Signs 08/28/20 08/28/20 14:04 14:44 Temperature 98.0 F Pulse Rate 138 H 117 H Respiratory 16 18 Rate Blood Pressure 141/93 140/86 O2 Sat by Pulse 98 99 Oximetry Medical Decision Making - Medical Decision Making 24-year-old female complaining of left upper mouth/tooth abscess and pain. 15 mg of Toradol ordered. Due to patient having no facial swelling no erythema and no fluctuance on exam patient will be treated empirically with antibiotics. Case discussed with Dr. Taveras, patient discharge in stable condition to follow- up with dentist on Saturday. Disposition Clinical Impression: Dental caries, Toothache, Fracture of tooth Disposition: HOME SELF-CARE Condition: Stable Instructions (If sedation given, give patient instructions): Toothache (ED), Dental Abscess (ED) Additional Instructions: Please return to the Emergency Department if symptoms worsen or any other concerns. Follow-up with primary care and dentist as soon as possible. Take antibiotics as prescribed until complete. Take Tylenol Motrin as needed for pain control. Prescriptions: Amoxicillin/Potassium Clav [Augmentin 875-125 Tablet] 1 tab PO Q12HR #20 tab Is patient prescribed a controlled substance at d/c from ED?: No Referrals: Adal Meadows MD [Primary Care Provider] - 1-2 days Time of Disposition: 14:57
== END 2020-08-28 15:00 | disposition home or self-care (01) ==
LOC: EC 13:56
DX: S02.5XXA Fracture of tooth (traumatic), initial encounter for closed fracture (principal); K02.9 Dental caries, unspecified; G40.909 Epilepsy, unspecified, not intractable, without status epilepticus; E28.2 Polycystic ovarian syndrome; F84.0 Autistic disorder; F32.9 Major depressive disorder, single episode, unspecified; F41.9 Anxiety disorder, unspecified; F90.9 Attention-deficit hyperactivity disorder, unspecified type; F25.9 Schizoaffective disorder, unspecified; F17.200 Nicotine dependence, unspecified, uncomplicated; F12.90 Cannabis use, unspecified, uncomplicated; F15.90 Other stimulant use, unspecified, uncomplicated; Z79.1 Long term (current) use of non-steroidal anti-inflammatories (NSAID); X58.XXXA Exposure to other specified factors, initial encounter
CPT/HCPCS: 99282; 96372; J1885

== ENCOUNTER 2020-09-10 01:21 | Inpatient (IN) | payer MEDICAID, OTHER ==
--- NOTE | 2020-09-10 01:25 | ED ---
Psych HPI - General Stated Complaint: Mental Health Time Seen by Provider: 09/10/20 01:24 Source: RN notes reviewed, old records reviewed Limitations: no limitations - History of Present Illness Initial Comments: This is a 24-year-old female to the ER for evaluation. Patient presents today for evaluation of psychiatric illness increasing suicidal thoughts and ideation. Patient states that she is very depressed situationally wants to kill himself. MD Complaint: suicidal ideation, feels depressed -: hour(s) Associated Psychiatric Symptoms: depression History of same: Yes Quality: constant Improves With: none Worsens With: none Treatments Prior to Arrival: placed on mental health hold If Self Harm: admits thoughts of self harm - Related Data Home Medications Medication Instructions Recorded Confirmed Pregabalin 200 mg PO TID 06/21/19 05/23/20 Meclizine HCl 25 mg PO Q6H PRN 03/02/20 05/23/20 Haloperidol Decanoate [Haldol D] 50 mg IM Q28D 05/23/20 05/23/20 Meloxicam [Mobic] 7.5 mg PO DAILY 05/23/20 05/23/20 Mirtazapine [Remeron] 60 mg PO HS 05/23/20 05/23/20 Multivitamins, Thera [Multivitamin 1 tab PO DAILY 05/23/20 05/23/20 (formulary)] [place]-3 Fatty Acids/Fish Oil [Fish 1 cap PO DAILY 05/23/20 05/23/20 Oil 1,000 mg Softgel] hydrOXYzine pamoate [Vistaril] 50 mg PO BID 05/23/20 05/23/20 Previous Rx's Medication Instructions Recorded Benztropine Mesylate [Cogentin] 1 mg PO BID 30 Days tab 03/09/20 OXcarbazepine [Trileptal] 600 mg PO BID 30 Days tab 03/09/20 cloNIDine HCL [Catapres] 0.2 mg PO BID 30 Days tab 03/09/20 Acetaminophen-Codeine 300-30mg 1 tab PO Q6H PRN 3 Days #12 tablet 06/18/20 [Tylenol w/codeine #3] Penicillin V Potassium [Pen Vee K] 500 mg PO Q6HR 7 Days #28 tablet 06/18/20 Penicillin V Potassium [Pen Vee K] 500 mg PO QID #40 tablet 08/03/20 Amoxicillin/Potassium Clav 1 tab PO Q12HR #20 tab 08/28/20 [Augmentin 875-125 Tablet] Allergies Allergy/AdvReac Type Severity Reaction Status Date / Time No Known Allergies Allergy Verified 08/28/20 13:57 Review of Systems ROS Statement: Those systems with pertinent positive or pertinent negative responses have been documented in the HPI. ROS Other: All systems not noted in ROS Statement are negative. Past Medical History Past Medical History: Seizure Disorder Additional Past Medical History / Comment(s): agoraphobia, borderline, seizure disorder: last seizure was a "1 month ago." Polycystic ovary syndrome, chronic back spasms , autism does not use link. Sinus tachycardia, mass possible cancer patient unsure, wrist drop on the left, neuropathy, arthritis History of Any Multi-Drug Resistant Organisms: None Reported Past Surgical History: Ear Surgery Additional Past Surgical History / Comment(s): Bilateral ear tube insertion as a young child. 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 Past Anesthesia/Blood Transfusion Reactions: No Reported Reaction Past Psychological History: ADD/ADHD, Anxiety, Depression, PTSD, Schizoaffective Disorder Smoking Status: Current every day smoker, Vaper Past Alcohol Use History: Occasional Past Drug Use History: Marijuana, Methamphetamine, Prescription Drug Abuse - Past Family History Father Family Medical History: Hypertension Additional Family Medical History / Comment(s): Father is alive at age 50 with Testosterone deficiency Mother Additional Family Medical History / Comment(s): Mother is alive at age 48 with history of MPD, bipolar, depression. Brother(s) Additional Family Medical History / Comment(s): She has 4 brothers with no major medical problems. She does not have any sisters. She does not have any children. General Exam General appearance: alert, in no apparent distress Head exam: Present: atraumatic, normocephalic, normal inspection Eye exam: Present: normal appearance, PERRL, EOMI. Absent: scleral icterus, conjunctival injection, periorbital swelling ENT exam: Present: normal exam, mucous membranes moist Neck exam: Present: normal inspection. Absent: tenderness, meningismus, l ymphadenopathy Respiratory exam: Present: normal lung sounds bilaterally. Absent: respiratory distress, wheezes, rales, rhonchi, stridor Cardiovascular Exam: Present: regular rate, normal rhythm, normal heart sounds. Absent: systolic murmur, diastolic murmur, rubs, gallop, clicks GI/Abdominal exam: Present: soft, normal bowel sounds. Absent: distended, tenderness, guarding, rebound, rigid Extremities exam: Present: normal inspection, full ROM, normal capillary refill. Absent: tenderness, pedal edema, joint swelling, calf tenderness Back exam: Present: normal inspection Neurological exam: Present: alert, oriented X3, CN II-XII intact Psychiatric exam: Present: normal affect, normal mood Skin exam: Present: warm, dry, intact, normal color. Absent: rash Course Vital Signs 09/10/20 01:22 Temperature 98.0 F Pulse Rate 124 H Respiratory 18 Rate Blood Pressure 122/86 O2 Sat by Pulse 97 Oximetry - Reevaluation(s) Reevaluation #1: 09/10/20 03:19 Medical record is reviewed Reevaluation #2: 09/10/20 03:19 Medical clear for psychiatric evaluation Medical Decision Making - Medical Decision Making 24 female to the ED for mental health evaluation seen and evaluated psychiatry in the admitted for psychiatric evaluation and treatment - Lab Data Lab Results 09/10/20 09/10/20 Range/Units 01:38 01:38 Urine HCG, Qual Not Detected (Not Detectd) Urine Opiates Screen Not Detected (NotDetected) Ur Oxycodone Screen Not Detected (NotDetected) Urine Methadone Screen Not Detected (NotDetected) Ur Propoxyphene Screen Not Detected (NotDetected) Ur Barbiturates Screen Not Detected (NotDetected) U Tricyclic Antidepress Not Detected (NotDetected) Ur Phencyclidine Scrn Not Detected (NotDetected) Ur Amphetamines Screen Not Detected (NotDetected) U Methamphetamines Scrn Not Detected (NotDetected) U Benzodiazepines Scrn Not Detected (NotDetected) Urine Cocaine Screen Not Detected (NotDetected) U Marijuana (THC) Screen Not Detected (NotDetected) Disposition Clinical Impression: Suicidal ideation, Depression, Stimulant abuse, Acute psychosis, Schizoaffective disorder Disposition: TRANSFER TO PSYCH HOSP/UNIT Condition: Fair Is patient prescribed a controlled substance at d/c from ED?: No
[2020-09-10 02:18] LABS: Amphetamine Screen,Urine Not Detected (NotDetected); Barbiturate Screen,Urine Not Detected (NotDetected); Benzodiazepines Screen,Urine Not Detected (NotDetected); Cocaine Screen,Urine Not Detected (NotDetected); Methadone Screen, Urine Not Detected (NotDetected); Opiate Screen,Urine Not Detected (NotDetected); Oxycodone Screen, Urine Not Detected (NotDetected); Phencyclidine Screen,Urine Not Detected (NotDetected); Tricyclic Antidepressant,Urine Not Detected (NotDetected); Urn Cannabinoid Scrn Not Detected (NotDetected)
[2020-09-10] MEDS ORDERED: MAG HYDROX/AL HYDROX/SIMETH 30 ML CUP PO PRN (03:48)
[2020-09-10] MEDS ORDERED: ACETAMINOPHEN TAB 325 MG TAB PO PRN (03:48)
[2020-09-10] MEDS ORDERED: MAGNESIUM HYDROXIDE 2,400 MG/10 ML CUP PO PRN (03:48)
[2020-09-10] MEDS ORDERED: LORazepam 2 MG/ML INJ IM PRN (03:52)
[2020-09-10] MEDS ORDERED: HALOPERIDOL LACTATE 5 MG/ML 1 ML VIAL IM PRN (03:53)
[2020-09-10] MEDS: NICOTINE 14MG/24HR PATCH TRANSDERM SCH (09:01)
[2020-09-10] MEDS: MULTIVITAMINS, THERA 1 EACH TAB PO SCH (09:02)
[2020-09-10] MEDS: hydrOXYzine pamoate 25 MG CAP PO SCH ×2 (09:02→19:42)
[2020-09-10] MEDS: BENZTROPINE MESYLATE 1 MG TAB PO SCH ×2 (09:02→19:42)
[2020-09-10] MEDS: OXcarbazepine 300 MG TAB PO SCH ×2 (09:02→19:42)
[2020-09-10] MEDS: cloNIDine HCL 0.2 MG TAB PO SCH ×2 (09:03→19:42)
--- NOTE | 2020-09-10 11:36 | P.HPIM ---
History of Present Illness H&P Date: 09/10/20 Chief Complaint: Mental also struggles, suicidal thoughts 24-year-old female patient presented emergency room voluntarily for evaluation for increasing suicidal thoughts or ideation. Patient has long-standing history of mental illness and is under care at [facility]. 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 Patient has history of illicit drug use with methamphetamines, marijuana, and prescription drug abuse. Most recent set of vitals she is afebrile at 97.5 orally, pulse rate of 120, respiratory rate of 18, maintaining oxygen saturation 98% on room air, blood pressure 130/92. Urine hCG negative urine toxicology negative. Currently patient is sitting up in bed alert and oriented 3 following all commands. She stated that she was just feeling depressed and was having feelings and thoughts of suicide, another at this time. Patient denies chest pain pressure, nausea vomiting diarrhea, shortness of breath or difficulty breathing, or headaches at this time. Patient stated that she has numerous increasing stressors with the appropriate one being her new roommate. Review of Systems Constitutional: Reports fatigue Ears, nose, mouth and throat: Reports as per HPI Cardiovascular: Reports as per HPI Respiratory: Reports as per HPI Gastrointestinal: Reports as per HPI Genitourinary: Reports as per HPI Menstruation: Reports as per HPI Musculoskeletal: Reports as per HPI Integumentary: Reports as per HPI Neurological: Reports headaches, Reports seizures (Last seizure one month ago, intermittent headaches) Psychiatric: Reports anxiety, Reports depression, Reports hopelessness, Reports suicidal ideation Endocrine: Reports as per HPI Hematologic/Lymphatic: Reports as per HPI Allergic/Immunologic: Reports as per HPI Past Medical History Past Medical History: Seizure Disorder Additional Past Medical History / Comment(s): agoraphobia, borderline, seizure disorder: last seizure was a "1 month ago." Polycystic ovary syndrome, chronic back spasms , autism does not use link. Sinus tachycardia, mass possible cancer patient unsure, wrist drop on the left, neuropathy, arthritis History of Any Multi-Drug Resistant Organisms: None Reported Past Surgical History: Ear Surgery Additional Past Surgical History / Comment(s): Bilateral ear tube insertion as a young child. 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 Past Anesthesia/Blood Transfusion Reactions: No Reported Reaction Past Psychological History: ADD/ADHD, Anxiety, Depression, PTSD, Schizoaffective Disorder Smoking Status: Current every day smoker, Vaper Past Alcohol Use History: Occasional Additional Past Alcohol Use History / Comment(s): She is a smoker of one half pack per day since she was 12 years of age. She smokes marijuana 1-2 times per month. She does not have a medical marijuana card. She denies any other street drug use. Pt. reports she has a history of alcohol abuse in the past however now not drinking alcohol at all. Patient lives with her grandparents and [place]. Past Drug Use History: Marijuana, Methamphetamine, Prescription Drug Abuse Additional Drug Use History / Comment(s): Patient reports she has tried cocaine twice in the past, history of abuse opiates and smoking marijuana. - Past Family History Father Family Medical History: Hypertension Additional Family Medical History / Comment(s): Father is alive at age 50 with Testosterone deficiency Mother Additional Family Medical History / Comment(s): Mother is alive at age 48 with history of MPD, bipolar, depression. Brother(s) Additional Family Medical History / Comment(s): She has 4 brothers with no major medical problems. She does not have any sisters. She does not have any children. Medications and Allergies Home Medications Medication Instructions Recorded Confirmed Type Pregabalin 200 mg PO TID 06/21/19 05/23/20 History Meclizine HCl 25 mg PO Q6H PRN 03/02/20 05/23/20 History Benztropine Mesylate [Cogentin] 1 mg PO BID 30 Days tab 03/09/20 05/23/20 Rx OXcarbazepine [Trileptal] 600 mg PO BID 30 Days tab 03/09/20 05/23/20 Rx cloNIDine HCL [Catapres] 0.2 mg PO BID 30 Days tab 03/09/20 05/23/20 Rx Haloperidol Decanoate [Haldol D] 50 mg IM Q28D 05/23/20 05/23/20 History Meloxicam [Mobic] 7.5 mg PO DAILY 05/23/20 05/23/20 History Mirtazapine [Remeron] 60 mg PO HS 05/23/20 05/23/20 History Multivitamins, Thera [Multivitamin 1 tab PO DAILY 05/23/20 05/23/20 History (formulary)] [place]-3 Fatty Acids/Fish Oil [Fish 1 cap PO DAILY 05/23/20 05/23/20 History Oil 1,000 mg Softgel] hydrOXYzine pamoate [Vistaril] 50 mg PO BID 05/23/20 05/23/20 History Acetaminophen-Codeine 300-30mg 1 tab PO Q6H PRN 3 Days #12 tablet 06/18/20 Rx [Tylenol w/codeine #3] Penicillin V Potassium [Pen Vee K] 500 mg PO Q6HR 7 Days #28 tablet 06/18/20 Rx Penicillin V Potassium [Pen Vee K] 500 mg PO QID #40 tablet 08/03/20 Rx Amoxicillin/Potassium Clav 1 tab PO Q12HR #20 tab 08/28/20 Rx [Augmentin 875-125 Tablet] Allergies Allergy/AdvReac Type Severity Reaction Status Date / Time No Known Allergies Allergy Verified 08/28/20 13:57 Physical Exam Vitals: Vital Signs Temp Pulse Pulse Resp BP BP Pulse Ox 09/10/20 04:34 97.5 F L 120 H 18 130/92 98 09/10/20 01:22 98.0 F 124 H 18 122/86 97 Intake and Output 09/09/20 09/10/20 09/10/20 22:59 06:59 14:59 Other: Weight 98.5 kg GENERAL: Well-appearing, disheveled, well-nourished and in no acute distress. HEAD: Atraumatic, normocephalic. EYES: Pupils equal round and reactive to light, extraocular movements intact, sclera anicteric, conjunctiva are normal. ENT:nares patent, oropharynx clear without exudates. Moist mucous membranes. NECK: Normal range of motion, supple without lymphadenopathy or JVD, no thyromegaly LUNGS: Breath sounds clear to auscultation bilaterally and equal. No wheezes rales or rhonchi. HEART: Regular rate and rhythm without murmurs, rubs or gallops.S1S2 Normal ABDOMEN: Soft, nontender, normoactive bowel sounds. No guarding, no rebound. No masses appreciated. EXTREMITIES: Normal range of motion, no pitting or edema. No clubbing or cyanosis. NEUROLOGICAL: Cranial nerves II through XII grossly intact. Normal speech, normal gait. PSYCH: Normal mood, normal affect. Denies suicidal ideation at this time. SKIN: Warm, Dry, normal turgor, no rashes or lesions noted. Thrombosis Risk Factor Assmnt - DVT/VTE Prophylaxis DVT/VTE Prophylaxis: Low risk, early ambulation encouraged - Choose All That Apply Any of the Below Risk Factors Present?: No Other Risk Factors: No Thrombosis Risk Factor Assessment Level: Very Low Risk Assessment and Plan (1) Acute psychosis Current Visit: No Status: Acute Code(s): F23 - BRIEF PSYCHOTIC DISORDER SNOMED Code(s): 45093921 (2) Depression Current Visit: No Status: Acute Code(s): F32.9 - MAJOR DEPRESSIVE DISORDER, SINGLE EPISODE, UNSPECIFIED SNOMED Code(s): 42249114 (3) Schizoaffective disorder Current Visit: No Status: Acute Priority: High Code(s): F25.9 - SCHIZOAFFECTIVE DISORDER, UNSPECIFIED SNOMED Code(s): 89340040 (4) Schizophrenia Current Visit: No Status: Acute Code(s): F20.9 - SCHIZOPHRENIA, UNSPECIFIED SNOMED Code(s): 74500981 (5) Sinus tachycardia Current Visit: No Status: Acute Code(s): R00.0 - TACHYCARDIA, UNSPECIFIED SNOMED Code(s): 06262223 (6) Suicidal ideation Current Visit: No Status: Acute Code(s): R45.851 - SUICIDAL IDEATIONS SNOMED Code(s): 7044714 (7) Nicotine dependence Current Visit: No Status: Chronic Priority: Medium Code(s): F17.200 - NICOTINE DEPENDENCE, UNSPECIFIED, UNCOMPLICATED SNOMED Code(s): 58363111 (8) Substance abuse in remission Current Visit: Yes Status: Acute Code(s): F19.11 - OTHER PSYCHOACTIVE SUBSTANCE ABUSE, IN REMISSION SNOMED Code(s): 6736399401537 Plan: Admitted to mental health unit Labs ordered for 09/11/2020 Regular diet Medications reconciled We'll continue to follow closely and reevaluate later date Time with Patient: Greater than 30
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
[2020-09-10] MEDS: LORazepam 1 MG TAB PO PRN (15:21)
[2020-09-10] MEDS: CREON 36000 UNIT PO SCH (18:09)
[2020-09-10] MEDS: haloperidoL 5 MG TAB PO SCH (19:42)
[2020-09-10] MEDS: CREON 36000 UNIT PO PRN (20:21)
[2020-09-11] MEDS: LORazepam 1 MG TAB PO PRN ×2 (06:38→15:29)
[2020-09-11 06:53] LABS: Basophils # (A) 0.1 k/uL (0-0.2); Basophils % (A) 1 %; Eosinophils # (A) 0.3 k/uL (0-0.7); Eosinophils % (A) 3 %; HCT 42.5 % (34.0-46.0); Lymphocytes # (A) 3.4 k/uL (1.0-4.8); Lymphocytes % (A) 41 %; MCH 28.2 pg (25.0-35.0); MCHC 32.9 g/dL (31.0-37.0); MCV 85.6 fL (80.0-100.0); Monocytes # (A) 0.4 k/uL (0-1.0); Monocytes % (A) 4 %; Neutrophils # (A) 4.2 k/uL (1.3-7.7); Neutrophils % (A) 49 %; Platelet Count 195 k/uL (150-450); RBC 4.96 m/uL (3.80-5.40); RDW 13.5 % (11.5-15.5); WBC 8.5 k/uL (3.8-10.6)
[2020-09-11 07:03] LABS: ALT 17 U/L (4-34); AST 21 U/L (14-36); African American GFR (CKD) >90 (>60 ml/min/1.73 sqM); Alkaline Phosphatase 79 U/L (38-126); Anion Gap 7 mmol/L; Blood Urea Nitrogen 17 mg/dL (7-17); Calcium 9.9 mg/dL (8.4-10.2); Carbon Dioxide 27 mmol/L (22-30); Chloride 106 mmol/L (98-107); Glucose 107 mg/dL (74-99); Non-African American GFR(CKD) >90 (>60 ml/min/1.73 sqM); Potassium 4.3 mmol/L (3.5-5.1); Sodium 140 mmol/L (137-145); Total Bilirubin 0.2 mg/dL (0.2-1.3); Total Protein 6.4 g/dL (6.3-8.2)
[2020-09-11] MEDS: NICOTINE 14MG/24HR PATCH TRANSDERM SCH (08:08)
[2020-09-11] MEDS: hydrOXYzine pamoate 25 MG CAP PO SCH ×2 (08:09→19:58)
[2020-09-11] MEDS: cloNIDine HCL 0.2 MG TAB PO SCH ×2 (08:09→19:59)
[2020-09-11] MEDS: CREON 36000 UNIT PO SCH ×3 (08:09→18:04)
[2020-09-11] MEDS: haloperidoL 5 MG TAB PO SCH ×2 (08:09→19:59)
[2020-09-11] MEDS: MULTIVITAMINS, THERA 1 EACH TAB PO SCH (08:09)
[2020-09-11] MEDS: OXcarbazepine 300 MG TAB PO SCH ×2 (08:09→19:59)
[2020-09-11] MEDS: BENZTROPINE MESYLATE 1 MG TAB PO SCH ×2 (08:09→19:59)
--- NOTE | 2020-09-11 10:19 | P.PN ---
Progress Note - Text Progress Note Date: 09/11/20 Interval History: Patient was seen in the room and was directable and agreeable to speak with specification writer . She stated she feels stressed out and overwhelmed. She was getting very upset and nervous. Her sleep was erratic. There were times when she would sleep too much and other times not at all. . At this time patient denies any suicidal or homical ideations, intent or plan. Patient denies any auditory, visual hallucinations and denies any paranoia or delusions. Patient denies any side effects from the medications and has been compliant with meds. Mental Status Exam: General Appearance: Patient appears to be stated age is alert, directable, and cooperative. Behavior: Patient is calmly seated without any agitated behavior. Speech: Patient's speech is fluent and nonpressured. Mood/Affect: Mood is improving mildly, affect is congruent and constricted. Suicidality/Homicidality: Patient denies having any suicidal or homicidal ideation intent or plan. Perceptions: Patient denies any visual hallucinations and denies any auditory hallucinations Though content/process: There is no evidence of any delusional thought content and thought process is linear and goal-directed. Memory and concentration: AOX3, grossly intact for the purposes of this session Judgment and insight: Improving mildly Assessment Schizoaffective disorder Polysubstance dependence PTSD Plan: -Patient continues to meet criteria for inpatient psychiatric admission for symptom stabilization and safety. -Medications: Continue medication as before -When necessary Ativan and Haldol for agitation/aggression. -SW on board for discharge planning. Encouraged the patient to participate in milieu.
[2020-09-11 12:00] LABS: Chol/HDL Ratio 6.43; Cholesterol 225 mg/dL (0-200); LDL Cholesterol,Calculated 141.6 mg/dL (0.0-131.0)
[2020-09-11 14:18] LABS: Hemoglobin A1C 5.2 % (4.0-6.0)
[2020-09-11] MEDS: CREON 36000 UNIT PO PRN (20:34)
[2020-09-12] MEDS: LORazepam 1 MG TAB PO PRN ×2 (07:38→15:42)
[2020-09-12] MEDS: CREON 36000 UNIT PO SCH ×3 (08:02→17:51)
[2020-09-12] MEDS: NICOTINE 14MG/24HR PATCH TRANSDERM SCH (08:55)
[2020-09-12] MEDS: BENZTROPINE MESYLATE 1 MG TAB PO SCH ×2 (08:56→20:09)
[2020-09-12] MEDS: OXcarbazepine 300 MG TAB PO SCH ×2 (08:56→20:09)
[2020-09-12] MEDS: cloNIDine HCL 0.2 MG TAB PO SCH ×2 (08:56→20:09)
[2020-09-12] MEDS: hydrOXYzine pamoate 25 MG CAP PO SCH ×2 (08:56→20:09)
[2020-09-12] MEDS: MULTIVITAMINS, THERA 1 EACH TAB PO SCH (08:56)
[2020-09-12] MEDS: haloperidoL 5 MG TAB PO SCH (08:57)
--- NOTE | 2020-09-12 10:07 | P.PN ---
Progress Note - Text Progress Note Date: 09/12/20 Interval History: Patient was seen lying in her bed this morning and was directable and agreeable to speak with senior copywriter in the office. She appears to have poor hygiene and grooming and disheveled appearance. She appears to be somewhat anxious during the conversation states that she was feeling depressed. She claims that she had a "falling out" with her friend who she was romantically involved with school claims that "he also has schizophrenia". She states that this was the main trigger for her to come in to the hospital when they decided to break up. She claims that she has been hearing voices off and on and has on and off sleep as well. She states that she has tremors related to the Haldol and claims that "it doesn't work that well for me". She states that she has a fair appetite and has not been going to many groups. At this time patient denies any current suicidal or homical ideations, intent or plan. Patient denies any visual hallucinations and denies any paranoia or delusions. Patient denies any side effects from the medications and has been compliant with meds. Mental Status Exam: General Appearance: Patient appears to be disheveled in appearance stated age is alert, directable, and attempts to be cooperative. Behavior: Patient is calmly seated without any agitated behavior. Appears to be anxious Speech: Patient's speech is fluent and nonpressured. Mood/Affect: Mood is depressed and anxious, affect is congruent and constricted. Suicidality/Homicidality: Patient denies having any suicidal or homicidal ideation intent or plan. Perceptions: Patient denies any visual hallucinations and she admits to hearing voices on and off. Though content/process: Patient was not endorsing any delusions or paranoia today. For the most part logical. Memory and concentration: AOX3, grossly intact for the purposes of this session Judgment and insight: Improving mildly Assessment Schizoaffective disorder PTSD Nicotine dependence Plan: -Patient continues to meet criteria for inpatient psychiatric admission for symptom stabilization and safety. Patient has signed adult voluntary form and medication consent and was placed in patient's chart. -Medications: Switched Haldol to a lower potency antipsychotic Trilafon 4 mg twice a day for psychosis. Continue with Cogentin 1 mg twice a day for EPS prophylaxis. Added Zoloft 25 mg daily for mood/anxiety. Vistaril 50 mg twice a day for anxiety. -Tegretol for seizure disorder, Lyrica for neuropathic pain -When necessary Ativan and Haldol for agitation/aggression. -NRT - nicotine patch -SW on board for discharge planning. Encouraged the patient to participate in milieu. Likely discharge in 2-3 days.
[2020-09-12] MEDS ORDERED: NON FORMULARY DRUG (Omega-3 Fatty Acids/Fish Oil [Fish Oil 1,000 Mg Softgel] 1 EACH Capsul PO SCH (10:15)
[2020-09-12] MEDS: CREON 36000 UNIT PO PRN ×2 (12:58→20:42)
[2020-09-12] MEDS: MELOXICAM 7.5 MG TAB PO SCH (12:59)
[2020-09-12] MEDS: SERTRALINE 25 MG TAB PO SCH (13:00)
[2020-09-12] MEDS: PREGABALIN 100 MG CAP PO SCH ×3 (13:01→20:45)
[2020-09-12] MEDS: PERPHENAZINE 4 MG TAB PO SCH ×2 (14:28→20:45)
[2020-09-12] MEDS: haloperidoL 5 MG TAB PO PRN (17:52)
[2020-09-13] MEDS: LORazepam 1 MG TAB PO PRN ×2 (06:30→15:44)
[2020-09-13 07:12] VITALS: RESP 16
[2020-09-13] MEDS: PREGABALIN 100 MG CAP PO SCH ×3 (07:28→20:21)
[2020-09-13] MEDS: cloNIDine HCL 0.2 MG TAB PO SCH (07:28)
[2020-09-13] MEDS: MELOXICAM 7.5 MG TAB PO SCH (07:29)
[2020-09-13] MEDS: hydrOXYzine pamoate 25 MG CAP PO SCH ×2 (07:29→20:20)
[2020-09-13] MEDS: OXcarbazepine 300 MG TAB PO SCH ×2 (07:29→20:20)
[2020-09-13] MEDS: MULTIVITAMINS, THERA 1 EACH TAB PO SCH (07:29)
[2020-09-13] MEDS: BENZTROPINE MESYLATE 1 MG TAB PO SCH ×2 (07:29→20:20)
[2020-09-13] MEDS: NICOTINE 14MG/24HR PATCH TRANSDERM SCH (07:30)
[2020-09-13] MEDS: CREON 36000 UNIT PO SCH ×3 (08:52→17:49)
[2020-09-13] MEDS: PERPHENAZINE 4 MG TAB PO SCH (08:53)
[2020-09-13] MEDS: SERTRALINE 25 MG TAB PO SCH (08:54)
[2020-09-13] MEDS: PROPRANOLOL 20 MG TAB PO SCH ×2 (10:17→20:20)
--- NOTE | 2020-09-13 10:24 | P.PN ---
Progress Note - Text Progress Note Date: 09/13/20 Interval History: Patient was seen lying in her bed this morning and was directable and agreeable to speak with typewriter ribbon winder in the office. She appears to have poor hygiene and grooming and disheveled appearance. She appears to be more directable today during conversation however continues to claim that she feels "shaky". She continues to endorse anxiety is well. She states that she was on Xanax and Ativan at a young age and states that it has been difficult to control since then. She states that she feels mild improvement with her medications thus far in terms of her mood and anxiety. She was agreeable to start propranolol today and have her Zoloft increased. She states that she has not been hallucinating since yesterday. She claims that she goes to some groups in the afternoon. At this time patient denies any current suicidal or homical ideations, intent or plan. Patient denies any visual hallucinations and denies any paranoia or delusions. Patient denies any side effects from the medications and has been compliant with meds. Mental Status Exam: General Appearance: Patient appears to be disheveled in appearance stated age is alert, directable, and attempts to be cooperative. Behavior: Patient is calmly seated without any agitated behavior. Appears to be anxious, improving mildly. Speech: Patient's speech is fluent and nonpressured. Mood/Affect: Mood is depressed and anxious, improving mildly, affect is congruent Suicidality/Homicidality: Patient denies having any suicidal or homicidal ideation intent or plan. Perceptions: Patient denies any visual hallucinations or auditory hallucinations. Though content/process: Patient was not endorsing any delusions or paranoia today. For the most part logical. Memory and concentration: AOX3, grossly intact for the purposes of this session Judgment and insight: Improving mildly Assessment Schizoaffective disorder PTSD Nicotine dependence Plan: -Patient continues to meet criteria for inpatient psychiatric admission for symptom stabilization and safety. Patient has signed adult voluntary form and medication consent and was placed in patient's chart. -Medications: increase Trilafon 4 mg daily + 8mg qhs for psychosis. Continue with Cogentin 1 mg twice a day for EPS prophylaxis. increase Zoloft 50 mg daily for mood/anxiety. Vistaril 50 mg twice a day for anxiety. added propranolol 20mg bid for anxiety/tremor. -Tegretol for seizure disorder, Lyrica for neuropathic pain -When necessary Ativan and Haldol for agitation/aggression. -NRT - nicotine patch -SW on board for discharge planning. Encouraged the patient to participate in milieu. Likely discharge in 2-3 days back home.
[2020-09-13] MEDS: haloperidoL 5 MG TAB PO PRN ×2 (11:12→17:05)
[2020-09-13] MEDS: CREON 36000 UNIT PO PRN ×2 (12:56→20:20)
[2020-09-13] MEDS ORDERED: PERPHENAZINE 4 MG TAB PO SCH (21:00)
[2020-09-14] MEDS: haloperidoL 5 MG TAB PO PRN (04:50)
[2020-09-14 06:37] VITALS: TEMP 97.1
[2020-09-14] MEDS: CREON 36000 UNIT PO SCH ×2 (07:47→13:02)
[2020-09-14] MEDS: NICOTINE 14MG/24HR PATCH TRANSDERM SCH (07:48)
[2020-09-14] MEDS: MELOXICAM 7.5 MG TAB PO SCH (07:48)
[2020-09-14] MEDS: hydrOXYzine pamoate 25 MG CAP PO SCH (07:49)
[2020-09-14] MEDS: OXcarbazepine 300 MG TAB PO SCH (07:49)
[2020-09-14] MEDS: BENZTROPINE MESYLATE 1 MG TAB PO SCH (07:49)
[2020-09-14] MEDS: PROPRANOLOL 20 MG TAB PO SCH (07:49)
[2020-09-14] MEDS: PREGABALIN 100 MG CAP PO SCH (07:49)
[2020-09-14] MEDS: LORazepam 1 MG TAB PO PRN (07:49)
[2020-09-14] MEDS: MULTIVITAMINS, THERA 1 EACH TAB PO SCH (07:50)
[2020-09-14 07:55] VITALS: BP 116/63; PULSE 94
[2020-09-14] MEDS ORDERED: PERPHENAZINE 4 MG TAB PO SCH (09:00)
[2020-09-14] MEDS ORDERED: SERTRALINE 50 MG TAB PO SCH (09:00)
--- NOTE | 2020-09-14 10:07 | P.DS ---
Providers Date of admission: 09/10/20 03:38 Expected date of discharge: 09/14/20 Attending physician: Ziyad Delcid MD Consults: 09/10/20 03:48 Consult Physician Routine Consulting Provider: Adal Meadows Consult Reason/Comments: h and p Do you want consulting provider notified?: Yes, Notify in am Primary care physician: Adal Meadows - Discharge Diagnosis(es) (1) Schizoaffective disorder Current Visit: Yes Status: Acute Priority: High (2) PTSD (post-traumatic stress disorder) Current Visit: Yes Status: Acute Priority: Medium (3) Nicotine dependence Current Visit: Yes Status: Acute Priority: Low Hospital Course: Admission HPI: Admission note was completed by Dr. Bhatti "Patient stated she has been feeling down for a while and has been feeling depressed. She stated she feels stressed out and overwhelmed. She was getting very upset and nervous. Her sleep was err atic. There were times when she would sleep too much and other times not at all. She stated her depression was getting really bad. She was not able to focus attention and was not able to concentrate on things. Her mind was racing. She stated she has schizoaffective disorder diagnosis from the past. She stated she has been in psychiatric hospitals in [place], [facility], [place] and [place]. She stated she has been in psychiatric units at least 20 times in the past." Hospital course: Upon admission to the unit patient was initially depressed and hallucinating and complaining of anxiety. Patient was however directable and agreeable to commence treatment and signed adult voluntary form. Patient got along well with other patients on the unit and followed unit protocol. Patient was compliant with the medications and denied any side effects throughout hospital course. Patient was started on Trilafon and titrated up to a dose of 4 mg daily plus a milligrams daily at bedtime for psychosis. Patient was also restarted back on Cogentin 1 mg twice a day for EPS prophylaxis. Patient was discontinued off of Haldol due to adverse effects. She was started on Zoloft 50 mg daily for mood/anxiety. Patient was also started on Vistaril 50 mg twice a day for anxiety and also propranolol 20 mg twice a day for anxiety/tremors. Patient spoke of her stressors and engaged in therapy both group and individual. Patient was also seen by medical team for history and physical exam. Throughout the course of the hospitalization patient gradually improved with regards to mood, anxiety, psychosis, sleep and became more future oriented with improved insight and judgment. On the day of discharge patient denied any suicidal or homicidal ideations intent or plan denied any auditory or visual hallucinations. Patient endorsed wanting to live for her future and her health. The patient denied any access to guns or weapons. Patient denied any paranoia and did not endorse any delusions. Patient does not have a significant history of substance abuse however was counseled on abstaining from all substances including alcohol and marijuana. Patient was also counseled on the medications and need for regular compliance and was encouraged to follow-up with their outpatient appointment for mental health and also for primary care. Prior to discharge a family meeting will be arranged by social media marketing specialist to answer any questions and ensure safety upon discharge. Mental status exam: General Appearance: Patient appears to be overweight, stated age is alert, pleasant, and cooperative. Patient is in no acute distress and has improved hygiene and grooming Behavior: Patient is calmly seated without any agitated behavior. Speech: Patient's speech is fluent and nonpressured. Mood/Affect: Patient reports their mood is "good", affect is congruent and euthymic. Suicidality/Homicidality: Patient denies having any suicidal or homicidal ideation intent or plan. Perceptions: Patient denies any auditory or visual hallucinations. Though content/process: There is no evidence of any delusional thought content and thought process is linear and goal-directed. Memory and concentration: AOX3, grossly intact for the purposes of this session. Can spell "WORLD" backwards correctly. Judgment and insight: chronically poor, however has improved with guarded prognosis Impression: Schizoaffective disorder PTSD Nicotine dependence Plan: -Continue with discharge today as patient has improved and stabilized psychiatrically and is not currently an imminent threat to herself and/or others. -Continue medications: Trilafon 4 mg daily plus a milligrams daily at bedtime for psychosis, Cogentin 1 mg twice a day for EPS prophylaxis, Zoloft 50 mg daily for mood/anxiety, Vistaril 50 mg twice a day for anxiety, propranolol 20 mg twice a day for anxiety/tremors. -Patient was counseled on the need for medication compliance and appropriate follow-up at mental health and also primary care for medical issues. Patient verbalized understanding and agreed. -Social work to arrange for and conduct family meeting to ensure safety upon discharge and answer any questions/concerns. Social work also to arrange for patients follow up appointments with [facility] for psychiatric care along with follow up with primary care provider. -Patient counseled on abstaining from recreational drugs and marijuana and alcohol. Was informed/educated on the adverse effects on their physical and mental health. Patient verbally agreed and understood. -Patient was instructed to return to the hospital or seek immediate medical care if their psychiatric or medical symptoms do worsen or reoccur. Allergies Allergy/AdvReac Type Severity Reaction Status Date / Time No Known Allergies Allergy Verified 08/28/20 13:57 Laboratory Results WBC 8.5 k/uL (3.8-10.6) 09/11/20 06:05 RBC 4.96 m/uL (3.80-5.40) 09/11/20 06:05 Hgb 14.0 gm/dL (11.4-16.0) 09/11/20 06:05 Hct 42.5 % (34.0-46.0) 09/11/20 06:05 MCV 85.6 fL (80.0-100.0) 09/11/20 06:05 MCH 28.2 pg (25.0-35.0) 09/11/20 06:05 MCHC 32.9 g/dL (31.0-37.0) 09/11/20 06:05 RDW 13.5 % (11.5-15.5) 09/11/20 06:05 Plt Count 195 k/uL (150-450) 09/11/20 06:05 MPV 9.0 09/11/20 06:05 Neutrophils % 49 % 09/11/20 06:05 Lymphocytes % 41 % 09/11/20 06:05 Monocytes % 4 % 09/11/20 06:05 Eosinophils % 3 % 09/11/20 06:05 Basophils % 1 % 09/11/20 06:05 Neutrophils # 4.2 k/uL (1.3-7.7) 09/11/20 06:05 Lymphocytes # 3.4 k/uL (1.0-4.8) 09/11/20 06:05 Monocytes # 0.4 k/uL (0-1.0) 09/11/20 06:05 Eosinophils # 0.3 k/uL (0-0.7) 09/11/20 06:05 Basophils # 0.1 k/uL (0-0.2) 09/11/20 06:05 Sodium 140 mmol/L (137-145) 09/11/20 06:05 Potassium 4.3 mmol/L (3.5-5.1) 09/11/20 06:05 Chloride 106 mmol/L (98-107) 09/11/20 06:05 Carbon Dioxide 27 mmol/L (22-30) 09/11/20 06:05 Anion Gap 7 mmol/L 09/11/20 06:05 BUN 17 mg/dL (7-17) 09/11/20 06:05 Creatinine 0.72 mg/dL (0.52-1.04) 09/11/20 06:05 Est GFR (CKD-EPI)AfAm >90 (>60 ml/min/1.73 sqM) 09/11/20 06:05 Est GFR (CKD-EPI)NonAf >90 (>60 ml/min/1.73 sqM) 09/11/20 06:05 Glucose 107 mg/dL (74-99) H 09/11/20 06:[address] Glu mg/dL 103 09/11/20 06:05 Hemoglobin A1c 5.2 % (4.0-6.0) 09/11/20 06:05 Calcium 9.9 mg/dL (8.4-10.2) 09/11/20 06:05 Total Bilirubin 0.2 mg/dL (0.2-1.3) 09/11/20 06:05 AST 21 U/L (14-36) 09/11/20 06:05 ALT 17 U/L (4-34) 09/11/20 06:05 Alkaline Phosphatase 79 U/L (38-126) 09/11/20 06:05 Total Protein 6.4 g/dL (6.3-8.2) 09/11/20 06:05 Albumin 4.0 g/dL (3.5-5.0) 09/11/20 06:05 Triglycerides 242.0 mg/dL (0.0-149.0) H 09/11/20 06:05 Cholesterol 225 mg/dL (0-200) H 09/11/20 06:05 LDL Cholesterol, Calc 141.6 mg/dL (0.0-131.0) H 09/11/20 06:05 VLDL Cholesterol, Calc 48.40 mg/dL (5.00-40.00) H 09/11/20 06:05 HDL Cholesterol 35.0 mg/dL (40.0-60.0) L 09/11/20 06:05 Cholesterol/HDL Ratio 6.43 09/11/20 06:05 TSH 1.480 mIU/L (0.465-4.680) 09/11/20 06:05 Urine HCG, Qual Not Detected (Not Detectd) 09/10/20 01:38 Urine Opiates Screen Not Detected (NotDetected) 09/10/20 01:38 Ur Oxycodone Screen Not Detected (NotDetected) 09/10/20 01:38 Urine Methadone Screen Not Detected (NotDetected) 09/10/20 01:38 Ur Propoxyphene Screen Not Detected (NotDetected) 09/10/20 01:38 Ur Barbiturates Screen Not Detected (NotDetected) 09/10/20 01:38 U Tricyclic Antidepress Not Detected (NotDetected) 09/10/20 01:38 Ur Phencyclidine Scrn Not Detected (NotDetected) 09/10/20 01:38 Ur Amphetamines Screen Not Detected (NotDetected) 09/10/20 01:38 U Methamphetamines Scrn Not Detected (NotDetected) 09/10/20 01:38 U Benzodiazepines Scrn Not Detected (NotDetected) 09/10/20 01:38 Urine Cocaine Screen Not Detected (NotDetected) 09/10/20 01:38 U Marijuana (THC) Screen Not Detected (NotDetected) 09/10/20 01:38 Vital Signs Temp 97.1 F L 09/14/20 06:36 Pulse 94 09/14/20 07:50 Resp 16 09/14/20 06:36 BP 116/63 09/14/20 07:50 Pulse Ox 99 09/13/20 07:11 Patient Condition at Discharge: Stable Plan - Discharge Summary Discharge Rx Participant: No New Discharge Prescriptions: New Benztropine Mesylate [Cogentin] 1 mg PO BID 30 Days tab Nicotine 14Mg/24Hr Patch [Habitrol] 1 patch TRANSDERM DAILY 14 Days patch Propranolol [Inderal] 20 mg PO BID 30 Days tab Creon 1 cap PO TID PRN Creon 2 cap PO AC-TID Mirtazapine [Remeron] 15 mg PO HS 30 Days tab Perphenazine [Trilafon] 4 mg PO DAILY 30 Days tab Perphenazine [Trilafon] 8 mg PO HS 30 Days tab Sertraline [Zoloft] 50 mg PO DAILY 30 Days tab Continue Pregabalin 200 mg PO TID Meclizine HCl 25 mg PO Q6H PRN PRN Reason: Vertigo OXcarbazepine [Trileptal] 600 mg PO BID 30 Days tab [place]-3 Fatty Acids/Fish Oil [Fish Oil 1,000 mg Softgel] 1 cap PO DAILY hydrOXYzine pamoate [Vistaril] 50 mg PO BID 30 Days cap Meloxicam [Mobic] 7.5 mg PO DAILY Multivitamins, Thera [Multivitamin (formulary)] 1 tab PO DAILY Discontinued cloNIDine HCL [Catapres] 0.2 mg PO BID 30 Days tab Benztropine Mesylate [Cogentin] 1 mg PO BID 30 Days tab Haloperidol Decanoate [Haldol D] 50 mg IM Q28D Penicillin V Potassium [Pen Vee K] 500 mg PO QID #40 tablet Amoxicillin/Potassium Clav [Augmentin 875-125 Tablet] 1 tab PO Q12HR #20 tab Mirtazapine [Remeron] 60 mg PO HS Acetaminophen-Codeine 300-30mg [Tylenol w/codeine #3] 1 tab PO Q6H PRN 3 Days #12 tablet PRN Reason: dental pain Penicillin V Potassium [Pen Vee K] 500 mg PO Q6HR 7 Days #28 tablet Discharge Medication List Pregabalin 200 mg PO TID 06/21/19 [History] Meclizine HCl 25 mg PO Q6H PRN 03/02/20 [History] OXcarbazepine [Trileptal] 600 mg PO BID 30 Days tab 03/09/20 [Rx] Meloxicam [Mobic] 7.5 mg PO DAILY 05/23/20 [History] Multivitamins, Thera [Multivitamin (formulary)] 1 tab PO DAILY 05/23/20 [History] [place]-3 Fatty Acids/Fish Oil [Fish Oil 1,000 mg Softgel] 1 cap PO DAILY 05/23/20 [History] Benztropine Mesylate [Cogentin] 1 mg PO BID 30 Days tab 09/14/20 [Rx] Creon 1 cap PO TID PRN 09/14/20 [Rx] Creon 2 cap PO AC-TID 09/14/20 [Rx] Mirtazapine [Remeron] 15 mg PO HS 30 Days tab 09/14/20 [Rx] Nicotine 14Mg/24Hr Patch [Habitrol] 1 patch TRANSDERM DAILY 14 Days patch 09/14/20 [Rx] Perphenazine [Trilafon] 4 mg PO DAILY 30 Days tab 09/14/20 [Rx] Perphenazine [Trilafon] 8 mg PO HS 30 Days tab 09/14/20 [Rx] Propranolol [Inderal] 20 mg PO BID 30 Days tab 09/14/20 [Rx] Sertraline [Zoloft] 50 mg PO DAILY 30 Days tab 09/14/20 [Rx] hydrOXYzine pamoate [Vistaril] 50 mg PO BID 30 Days cap 09/14/20 [Rx] Follow up Appointment(s)/Referral(s): Adal Meadows MD [Primary Care Provider] - 1-2 days Activity/Diet/Wound Care/Special Instructions: Activity and diet as tolerated. Avoid the use of street drugs and alcohol. Take all medications as prescribed. When you are in need of refills on your medications please contact your medical provider and/or outpatient psychiatrist to have this done. Please go to scheduled outpatient appointment for aftercare treatment. If symptoms return or become worse, call the crisis line at and/or go to the nearest emergency room for evaluation. Discharge Disposition: HOME SELF-CARE
[2020-09-14] MEDS ORDERED: MIRTAZAPINE 15 MG TAB PO SCH (21:00)
== END 2020-09-14 13:40 | disposition home or self-care (01) | DRG 885 ==
LOC: EC 01:21 → 3MHU 03:38
PROVIDERS: ADMIT Psychiatry & Neurology Psychiatry; ATTEND Psychiatry & Neurology Psychiatry
DX: F25.9 Schizoaffective disorder, unspecified (principal); F15.20 Other stimulant dependence, uncomplicated; R45.851 Suicidal ideations; F19.20 Other psychoactive substance dependence, uncomplicated; G40.909 Epilepsy, unspecified, not intractable, without status epilepticus; F43.10 Post-traumatic stress disorder, unspecified; F90.9 Attention-deficit hyperactivity disorder, unspecified type; F17.290 Nicotine dependence, other tobacco product, uncomplicated; F60.3 Borderline personality disorder; F40.00 Agoraphobia, unspecified; F84.0 Autistic disorder; G62.9 Polyneuropathy, unspecified; Z79.1 Long term (current) use of non-steroidal anti-inflammatories (NSAID); Z79.899 Other long term (current) drug therapy; Z86.79 Personal history of other diseases of the circulatory system; Z81.8 Family history of other mental and behavioral disorders
CPT/HCPCS: 80053; 80061; 80306; 81025; 82075; 83036; 84443; 85025; 99285

== ENCOUNTER → 2021-03-15 | Outpatient (CLI) | payer OTHER ==
--- NOTE | 2021-03-15 12:12 | XR ---
EXAMINATION TYPE: XR lumbar spine 2 or 3V DATE OF EXAM: 03/15/2021 CLINICAL HISTORY: Worsening low back pain TECHNIQUE: Frontal and lateral images of the lumbar spine are obtained. COMPARISON: CT abdomen and pelvis May 23, 2020 FINDINGS: There are 5 lumbar type vertebral bodies redemonstrated. The lumbar spine shows stable an d satisfactory alignment without evidence of acute fracture or dislocation. Vertebral body heights an d disk space heights are within normal limits. Spina bifida defect S1 level redemonstrated. The over lying soft tissue appears unremarkable. IMPRESSION: As above.
== END | disposition home or self-care (01) ==
LOC: RADXRMAIN 11:42
PROVIDERS: ATTEND Family Medicine
DX: Q05.8 Sacral spina bifida without hydrocephalus (principal)
CPT/HCPCS: 72100

== ENCOUNTER 2021-07-15 06:53 | Emergency (ER) | payer OTHER ==
[2021-07-15 07:00] VITALS: TEMP 98.7
[2021-07-15] MEDS ORDERED: SODIUM CHLORIDE 0.9% 1,000 ML IV STA (07:21)
--- NOTE | 2021-07-15 07:28 | ED ---
General Adult HPI - General Chief complaint: Urogenital Stated complaint: urine retention Time Seen by Provider: 07/15/21 06:58 Source: patient, RN notes reviewed Mode of arrival: ambulatory Limitations: no limitations - History of Present Illness Initial comments: 25-year-old female with a past medical history of PCO S, autism, borderline personality disorder, seizure disorder, [place] phobia presents to the emergency room for a chief complaint of urinary retention. Patient states for the past week she hasn't been able to urinate and has been using straight catheters. Patient ordered these off of [employer]. She does have some mild generalized abdo jesse pain associated with this. She had a CAT scan at [facility] last night that she reports showed lymphadenopathy. Patient was also put on an antibiotic for a urinary tract infection. Patient apparently last self cathed 2 hours ago. Patient has no other complaints at this time including shortness of breath, chest pain, nausea or vomiting, headache, or visual changes. - Related Data Home Medications Medication Instructions Recorded Confirmed Pregabalin 200 mg PO TID 06/21/19 05/23/20 Meclizine HCl 25 mg PO Q6H PRN 03/02/20 05/23/20 Meloxicam [Mobic] 7.5 mg PO DAILY 05/23/20 05/23/20 Multivitamins, Thera [Multivitamin 1 tab PO DAILY 05/23/20 05/23/20 (formulary)] [place]-3 Fatty Acids/Fish Oil [Fish 1 cap PO DAILY 05/23/20 05/23/20 Oil 1,000 mg Softgel] Previous Rx's Medication Instructions Recorded OXcarbazepine [Trileptal] 600 mg PO BID 30 Days tab 03/09/20 Benztropine Mesylate [Cogentin] 1 mg PO BID 30 Days tab 09/14/20 Creon 1 cap PO TID PRN 09/14/20 Creon 2 cap PO AC-TID 09/14/20 Mirtazapine [Remeron] 15 mg PO HS 30 Days tab 09/14/20 Nicotine 14Mg/24Hr Patch [Habitrol] 1 patch TRANSDERM DAILY 14 Days 09/14/20 patch Perphenazine [Trilafon] 4 mg PO DAILY 30 Days tab 09/14/20 Perphenazine [Trilafon] 8 mg PO HS 30 Days tab 09/14/20 Propranolol [Inderal] 20 mg PO BID 30 Days tab 09/14/20 Sertraline [Zoloft] 50 mg PO DAILY 30 Days tab 09/14/20 hydrOXYzine pamoate [Vistaril] 50 mg PO BID 30 Days cap 09/14/20 Allergies Allergy/AdvReac Type Severity Reaction Status Date / Time No Known Allergies Allergy Verified 07/15/21 07:00 Review of Systems ROS Statement: Those systems with pertinent positive or pertinent negative responses have been documented in the HPI. ROS Other: All systems not noted in ROS Statement are negative. Past Medical History Past Medical History: Seizure Disorder Additional Past Medical History / Comment(s): agoraphobia, borderline, seizure disorder: last seizure was a "1 month ago." Polycystic ovary syndrome, chronic back spasms , autism does not use link. Sinus tachycardia, mass possible cancer patient unsure, wrist drop on the left, neuropathy, arthritis History of Any Multi-Drug Resistant Organisms: None Reported Past Surgical History: Ear Surgery Additional Past Surgical History / Comment(s): Bilateral ear tube insertion as a young child. 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 Past Anesthesia/Blood Transfusion Reactions: No Reported Reaction Past Psychological History: ADD/ADHD, Anxiety, Depression, PTSD, Schizoaffective Disorder Smoking Status: Vaper Past Alcohol Use History: Occasional Past Drug Use History: Marijuana, Methamphetamine, Prescription Drug Abuse - Past Family History Father Family Medical History: Hypertension Additional Family Medical History / Comment(s): Father is alive at age 50 with Testosterone deficiency Mother Additional Family Medical History / Comment(s): Mother is alive at age 48 with history of MPD, bipolar, depression. Brother(s) Additional Family Medical History / Comment(s): She has 4 brothers with no major medical problems. She does not have any sisters. She does not have any children. General Exam Limitations: no limitations General appearance: alert, in no apparent distress Head exam: Present: atraumatic Eye exam: Present: normal appearance, PERRL, EOMI. Absent: scleral icterus, conjunctival injection ENT exam: Present: normal exam, mucous membranes moist Neck exam: Present: normal inspection, full ROM. Absent: tenderness Respiratory exam: Present: normal lung sounds bilaterally. Absent: respiratory distress, wheezes Cardiovascular Exam: Present: regular rate, normal rhythm, normal heart sounds GI/Abdominal exam: Present: soft, normal bowel sounds. Absent: distended, tenderness, guarding, rebound Course Vital Signs 07/15/21 07/15/21 07/15/21 06:56 08:00 09:25 Temperature 98.7 F Pulse Rate 100 94 92 Respiratory 18 20 18 Rate Blood Pressure 158/91 140/80 142/82 O2 Sat by Pulse 98 99 99 Oximetry Medical Decision Making - Medical Decision Making Vitals are stable. Patient well-appearing. No abdominal tenderness. CBC is unremarkable. White blood cell count is normal. BMP is also unremarkable. CT abdomen and pelvis from [facility] revealed no urolithiasis or obstructive uropathy. Mild urinary bladder thickening noted. Apparent thickening of the gastric fundus. There are also multiple prominent lymph nodes. Patient is aware and has made an appointment with her oncologist. She has a CAT scan coming up in a couple weeks. Urinalysis does reveal red blood cells and white blood cells. Patient is already on antibiotics for urinary tract infection. Hematuria likely secondary to trauma from self cathing. Patient was able to void twice in the emergency room. Her post void residual is 50. At this time she does not need an indwelling Juarez catheter. I did recommend patient refrain from using the straight catheter kits unless absolutely necessary. She is requesting referral to urology. She will follow up with primary care as well. She will return here for any worsening symptoms. - Lab Data Result diagrams: 07/15/21 07:46 07/15/21 07:46 Lab Results 07/15/21 07/15/21 07/15/21 Range/Units 07:46 07:46 07:46 WBC 7.4 (3.8-10.6) k/uL RBC 4.37 (3.80-5.40) m/uL Hgb 12.1 (11.4-16.0) gm/dL Hct 37.1 (34.0-46.0) % MCV 84.8 (80.0-100.0) fL MCH 27.8 (25.0-35.0) pg MCHC 32.8 (31.0-37.0) g/dL RDW 14.3 (11.5-15.5) % Plt Count 165 (150-450) k/uL MPV 10.2 Neutrophils % 55 % Lymphocytes % 37 % Monocytes % 4 % Eosinophils % 1 % Basophils % 1 % Neutrophils # 4.1 (1.3-7.7) k/uL Lymphocytes # 2.8 (1.0-4.8) k/uL Monocytes # 0.3 (0-1.0) k/uL Eosinophils # 0.1 (0-0.7) k/uL Basophils # 0.0 (0-0.2) k/uL Sodium 138 (137-145) mmol/L Potassium 3.3 L (3.5-5.1) mmol/L Chloride 103 (98-107) mmol/L Carbon Dioxide 28 (22-30) mmol/L Anion Gap 7 mmol/L BUN 8 (7-17) mg/dL Creatinine 0.66 (0.52-1.04) mg/dL Est GFR (CKD-EPI)AfAm >90 (>60 ml/min/1.73 sqM) Est GFR (CKD-EPI)NonAf >90 (>60 ml/min/1.73 sqM) Glucose 104 H (74-99) mg/dL Calcium 8.6 (8.4-10.2) mg/dL Urine Color Light Red Urine Appearance Clear (Clear) Urine pH 6.5 (5.0-8.0) Ur Specific [place] 1.022 (1.001-1.035) Urine Protein 1+ H (Negative) Urine Glucose (UA) Negative (Negative) Urine Ketones Negative (Negative) Urine Blood Large H (Negative) Urine Nitrite Negative (Negative) Urine Bilirubin Negative (Negative) Urine Urobilinogen <2.0 (<2.0) mg/dL Ur Leukocyte Esterase Small H (Negative) Urine RBC >182 H (0-5) /hpf Urine WBC 39 H (0-5) /hpf Ur Squamous Epith Cells 2 (0-4) /hpf Disposition Clinical Impression: Hematuria, Urinary tract infection Narrative: possible urinary retention Disposition: HOME SELF-CARE Condition: Good Instructions (If sedation given, give patient instructions): Urinary Tract Infection in Women (ED) Additional Instructions: Please follow up with primary care in 1-2 days. Follow up with urology if symptoms do not resolve with antibiotic treatment of your UTI. Return to the ER for any worsening symptoms. Is patient prescribed a controlled substance at d/c from ED?: No Referrals: Jose Antonio Pinon Jr, [Primary Care Provider] - 1-2 days Dylon Villa MD [STAFF PHYSICIAN] - 1-2 days Time of Disposition: 10:04
[2021-07-15 07:56] LABS: Basophils % (A) 1 %; Eosinophils # (A) 0.1 k/uL (0-0.7); Eosinophils % (A) 1 %; HCT 37.1 % (34.0-46.0); HGB 12.1 gm/dL (11.4-16.0); Lymphocytes # (A) 2.8 k/uL (1.0-4.8); Lymphocytes % (A) 37 %; MCH 27.8 pg (25.0-35.0); MCHC 32.8 g/dL (31.0-37.0); MCV 84.8 fL (80.0-100.0); Mean Platelet Volume 10.2; Monocytes # (A) 0.3 k/uL (0-1.0); Monocytes % (A) 4 %; Neutrophils # (A) 4.1 k/uL (1.3-7.7); Neutrophils % (A) 55 %; Platelet Count 165 k/uL (150-450); RBC 4.37 m/uL (3.80-5.40); RDW 14.3 % (11.5-15.5); WBC 7.4 k/uL (3.8-10.6)
[2021-07-15 08:12] LABS: African American GFR (CKD) >90 (>60 ml/min/1.73 sqM); Anion Gap 7 mmol/L; Blood Urea Nitrogen 8 mg/dL (7-17); Calcium 8.6 mg/dL (8.4-10.2); Carbon Dioxide 28 mmol/L (22-30); Chloride 103 mmol/L (98-107); Glucose 104 mg/dL (74-99); Non-African American GFR(CKD) >90 (>60 ml/min/1.73 sqM); Potassium 3.3 mmol/L (3.5-5.1); Sodium 138 mmol/L (137-145)
[2021-07-15] MEDS ORDERED: ONDANSETRON 4 MG/2 ML VIAL IVP STA (08:52)
[2021-07-15 09:07] LABS: Appearance,Urine Clear (Clear); Bilirubin,Urine Negative (Negative); Blood,Urine Large (Negative); Color,Urine Light Red; Glucose,Urine (UA) Negative (Negative); Ketones,Urine Negative (Negative); Leukocyte Esterase,Urine Small (Negative); Nitrite,Urine Negative (Negative); PH, Urine 6.5 (5.0-8.0); Protein,Urine 1+ (Negative); RBC,Urine >182 /hpf (0-5); Specific Gravity,Urine 1.022 (1.001-1.035); Squamous Epithelial Cell,Urine 2 /hpf (0-4); Urobilinogen,Urine <2.0 mg/dL (<2.0); WBC,Urine 39 /hpf (0-5)
[2021-07-15 09:26] VITALS: BP 142/82; PULSE 92; RESP 18
== END 2021-07-15 10:35 | disposition home or self-care (01) ==
LOC: EC 06:53
DX: N39.0 Urinary tract infection, site not specified (principal); G40.909 Epilepsy, unspecified, not intractable, without status epilepticus; F32.A Depression, unspecified; F41.9 Anxiety disorder, unspecified; F25.9 Schizoaffective disorder, unspecified; F90.9 Attention-deficit hyperactivity disorder, unspecified type; G62.9 Polyneuropathy, unspecified; M19.90 Unspecified osteoarthritis, unspecified site; F17.290 Nicotine dependence, other tobacco product, uncomplicated; F12.90 Cannabis use, unspecified, uncomplicated; F15.90 Other stimulant use, unspecified, uncomplicated; Z79.899 Other long term (current) drug therapy
CPT/HCPCS: 36415; 80048; 85025; 81001; 87086; 99284; 96374; 96361; J2405